=== PATIENT | female | born 1950 | race American Indian/Alaskan Native ===

== ENCOUNTER 2019-01-08 12:00 | Observation (INO) | payer MEDICARE, OTHER ==
[2019-01-07 13:43] LABS: Basophils % (Auto) 0.4 % (0.0-1.8); Eosinophils # (Auto) 0.1 K/mm3 (0.0-0.4); Eosinophils % (Auto) 2.2 % (0.0-4.3); Hematocrit 24.7 % (30.3-42.9); Hemoglobin 8.5 gm/dl (10.1-14.3); Lymphocytes # (Auto) 1.2 K/mm3 (1.2-5.4); Lymphocytes % (Auto) 19.3 % (13.4-35.0); Mean Corpuscular HGB Conc 34 % (30-34); Mean Corpuscular Volume 93 fl (79-97); Monocytes # (Auto) 0.4 K/mm3 (0.0-0.8); Monocytes % (Auto) 6.1 % (0.0-7.3); Platelet Count 370 K/mm3 (140-440); Red Blood Count 2.67 M/mm3 (3.65-5.03); Red Cell Distribution Width 17.1 % (13.2-15.2)
[2019-01-07 14:02] LABS: Calcium 10.9 mg/dL (8.4-10.2)
--- NOTE | 2019-01-07 15:27 | Anesthesia Consultation ---
Anesthesia Consult and Med Hx Date of service: 01/07/19 - Airway Anesthetic Teeth Evaluation: Good ROM Head & Neck: Adequate Mental/Hyoid Distance: Adequate Mallampati Class: Class III Intubation Access Assessment: Possibly Difficult - Pulmonary Exam CTA: Yes - Cardiac Exam Cardiac Exam: RRR (grade 2 systolic murmur) - Pre-Operative Health Status ASA Pre-Surgery Classification: ASA3 Proposed Anesthetic Plan: General Nerve Block: TAP - Pulmonary Hx Smoking: Yes Hx Respiratory Symptoms: No - Cardiovascular System Hx Hypertension: Yes (instructed to take amlodipine and clonidine DOS) Hx Heart Attack/AMI: No Hx Percutaneous Transluminal Coronary Angioplasty (PTCA): No Hx Cardia Arrhythmia: No Hx Heart Murmur: Yes (present since childhood; asymptomatic) - Central Nervous System Hx Seizures: No CVA: No Hx Psychiatric Problems: No - Gastrointestinal Hx Gastroesophageal Reflux Disease: Yes (well controlled with ranitidine prn) - Endocrine Hx Renal Disease: Yes (CKD; followed by distillery worker) Hx Liver Disease: No Hx Insulin Dependent Diabetes: No Hx Non-Insulin Dependent Diabetes: No Hx Thyroid Disease: No - Hematic Hx Anemia: Yes (no hx transfusions) - Other Systems Hx Alcohol Use: Yes (Occas) Hx Obesity: Yes (BMI 44) - Additional Comments Anesthesia Medical History Comments: No hx anesthetic complications. BP elevated on arrival to pre-assessment but patient did not take antihypertensives this morning. No SOB or chest pain. Instructed to take amlodipine and clonidine DOS.
--- NOTE | 2019-01-08 10:49 | History and Physical Report ---
History of Present Illness Date of examination: 01/08/19 Chief complaint: Postmenopausal bleeding History of present illness: Pt is a 68yo BF LMP 8 years ago presents with complaints of postmenopausal bleeding, unresolved with the D&C and polypectomy. A pelvic ultrasound shows an enlarged uterus measuring 14 x 12 x 10 cm with several fibroids. She desires a robotic-assisted total hysterectomy with bilateral salpingo-oophorectomy. Past History Past Medical History: hypertension Past Surgical History: colorectal surgery, SWIMMING TEACHER/uterine surgery, D&C SWIMMING TEACHER History: fibroids Family/Genetic History: none Social history: no significant social history, Medications and Allergies Allergies Allergy/AdvReac Type Severity Reaction Status Date / Time ampicillin Allergy Vomiting Verified 01/01/19 17:58 lisinopril Allergy Swelling Verified 01/01/19 17:58 Home Medications Medication Instructions Recorded Confirmed Last Taken Type AtorvaSTATin [Lipitor] 40 mg PO QHS 01/01/19 01/08/19 01/06/19 History Ranitidine HCl [Heartburn Relief] 75 mg PO DAILY 01/01/19 01/01/19 01/08/19 09:30 History amLODIPine [Norvasc] 10 mg PO DAILY 01/01/19 01/01/19 01/08/19 09:30 History cloNIDine [Catapres] 0.2 mg PO BID 01/01/19 01/08/19 01/08/19 09:30 History Active Meds: Active Medications Celecoxib (Celebrex) 200 mg PO PREOP NR Stop: 01/08/19 23:59 Fentanyl (Sublimaze) 100 mcg IV ONCE PRN PRN Reason: sedation for nerve block Stop: 01/08/19 23:59 Gabapentin (Neurontin) 300 mg PO PREOP NR Stop: 01/08/19 23:59 Lactated Ringer's (Lactated Ringers) 1,000 mls @ 100 mls/hr IV DIRECT CHRISTIANE Midazolam HCl (Versed) 2 mg IV PREOP NR Stop: 01/08/19 23:59 Scopolamine (Transderm-Scop) 1 each TD PREOP NR Stop: 01/08/19 23:59 Review of Systems All systems: negative - Vital Signs Vital signs: Vital Signs Temp Pulse Resp BP Pulse Ox 98.8 F 95 H 20 196/88 98 01/07/19 13:15 01/07/19 13:15 01/07/19 13:15 01/07/19 13:15 01/07/19 13:15 Temp Pulse Resp BP Pulse Ox 98.8 F 95 H 20 196/88 98 01/07/19 13:15 01/07/19 13:15 01/07/19 13:15 01/07/19 13:15 01/07/19 13:15 - Physical Exam Breasts: Positive: deferred Cardiovascular: Regular rate Lungs: Positive: Clear to auscultation Abdomen: Positive: normal appearance, soft Genitourinary (Female): Positive: normal external genitalia Vagina: Positive: normal moisture Uterus: Positive: enlarged Anus/Rectum: Positive: normal perianal skin Extremities: Positive: normal Results Result Diagrams: 01/09/19 05:55 01/07/19 13:20 Abnormal lab results 01/07/19 01/07/19 Range/Units 13:20 13:20 RBC 2.67 L (3.65-5.03) M/mm3 Hgb 8.5 L (10.1-14.3) gm/dl Hct 24.7 L (30.3-42.9) % RDW 17.1 H (13.2-15.2) % Seg Neutrophils % 72.0 H (40.0-70.0) % Carbon Dioxide 18 L (22-30) mmol/L BUN 30 H (7-17) mg/dL Creatinine 4.2 H (0.7-1.2) mg/dL Calcium 10.9 H (8.4-10.2) mg/dL All other labs normal. Ultrasound: report reviewed Assessment and Plan - Patient Problems (1) Uterine fibroid Onset Date: 01/08/19 Current Visit: No Status: Resolved Qualifiers: Uterine leiomyoma location: intramural, submucous, and subserous Qualified Code(s): D25.1 - Intramural leiomyoma of uterus; D25.0 - Submucous leiomyoma of uterus; D25.2 - Subserosal leiomyoma of uterus Plan to address problem: A: Symptomatic uterine fibroids Postmenopausal bleeding Anemia Kidney disease P: Will admit for a robotic-assisted total hysterectomy with bilateral sa lpingo-oophorectomy (2) Post-menopausal bleeding Onset Date: 01/08/19 Current Visit: No Status: Resolved
--- NOTE | 2019-01-08 11:49 | Anesthesia Day of Surgery ---
Anesthesia Day of Surgery - Day of Surgery Patient Examined: Yes Patient H&P Reviewed: Yes Patient is NPO: Yes
[~2019-01-08 12:00] MED LIST: ANCEF/STERILE WATER 2 GM/20 ML 2 GM/20 ML SYRINGE IV NR; DECADRON ONE; LACTATED RINGERS 1,000 ML IV SCH; MARCAINE 0.25% INFILTRATI ONE; NEURONTIN PO NR; SUBLIMAZE IV PRN; TRANSDERM-SCOP TD NR; VERSED IV NR; XYLOCAINE 1% 20 mL ONE
[2019-01-08] MEDS ORDERED: ZEMURON IV ONE (12:01)
[2019-01-08] MEDS ORDERED: DIPRIVAN 10 MG/ML IV ONE (12:01)
[2019-01-08] MEDS ORDERED: XYLOCAINE MPF 2% ONE (12:01)
[2019-01-08] MEDS ORDERED: SUBLIMAZE ONE (12:02)
[2019-01-08] MEDS ORDERED: NEOSPORIN GU IR ONE ×2 (12:14→13:13)
[2019-01-08] MEDS ORDERED: NACL 0.9% IR ONE ×2 (13:13)
[2019-01-08] MEDS ORDERED: ROBINUL ONE (15:09)
[2019-01-08] MEDS ORDERED: BLOXIVERZ ONE (15:09)
[2019-01-08] MEDS ORDERED: SODIUM CHLORIDE FLUSH SYRINGE 10 ML IV PRN (15:11)
[2019-01-08] MEDS ORDERED: NARCAN 0.4 MG/1 ML IV PRN (15:11)
[2019-01-08] MEDS ORDERED: PERCOCET 5/325 PO PRN (15:11)
[2019-01-08] MEDS ORDERED: MILK OF MAGNESIA PO PRN (15:11)
[2019-01-08] MEDS ORDERED: ZOFRAN IV PRN (15:11)
--- NOTE | 2019-01-08 15:36 | Operative Report ---
Operative Report Operative Report: Date of procedure: 01/08/2019 Pre-operative diagnosis: 1. Symptomatic uterine fibroids 2. Postmenopausal bleeding Post-operative diagnosis: Same Procedure name(s): Robotic-assisted total hysterectomy with bilateral salpingo- oophorectomy Surgeon: Marcos Edwards MD General Office Worker: Samra Chamberlain CSA Anesthesia: GEE Block followed by general endotracheal intubation by Dr. Moore EBL: 100 mls Findings: A 16 week size multi-myomatous uterus with tubes showing evidence of previous tubal ligation bilaterally and normal ovaries bilaterally. Procedure: After the patient's first correctly identified she was prepped and draped in the usual sterile fashion and placed in the dorsolithotomy position. The bladder was first catheterized using Stone catheter and the speculum was placed in the vagina and the anterior lip of the cervix was grasped using a single-tooth tenaculum, and the medium Vesicare cup was placed. The tenaculum and speculum was then removed from the vagina and attention was then turned to the abdomen. The skin knife was used to make a small incision approximately 5 cm above the umbilicus through which a 12 mm trocar was placed under direct visualization. After adequate amount of abdominal insufflation visualization of the pelvic organs found the uterus to be enlarged and the tubes showed evidence of previous tubal ligation bilaterally, and normal ovaries bilaterally. A right and left paramedian incision was made through which the 8 mm trochars were placed under direct visualization and a 5 mm trocar was placed in the right lower quadrant. The patient was then placed in steep Trendelenburg positioning and the robot was docked on the patient's left side. After all the robotic ports were connected and adequate functioning of the robotic arms were tested the surgeon then proceeded to the console to begin the hysterectomy. First the left round ligament was grasped, cauterized and cut, the left infundibulopelvic ligament was grasped, cauterized and cut, and the left fallopian tube also grasped, cauterized and cut thus freeing the left ovary from the left pelvic sidewall. The same procedure was performed on the right. The right round ligament was grasped, cauterized and cut, the right infundibulopelvic ligament was grasped, cauterized and cut, and the right f allopian tube also grasped, cauterized and cut thus freeing the right ovary from the right pelvic sidewall. The bladder flap was taken down anteriorly and the uterine vessels were grasped, cauterized and cut bilaterally. The cardinal ligaments were sequentially grasped, cauterized and cut down to the level of the uterosacral ligaments. At this time the posterior colpotomy was performed over the Vcare cup, and the cervix was circumscribed beginning posteriorly and meeting anteriorly until the cervix was freed. The cervix and uterus was then removed in pieces through the vagina and sent to pathology. The vaginal cuff was then closed using 2-0 Vloc suture in a running fashion. Irrigation was then performed and after good hemostasis was achieved the procedure was considered complete. The Tisseel sealant was then sprayed across the vaginal cuff site, and after excellent hemostasis was assured Interceed was placed across the vaginal cuff site. All instruments were then removed from the abdominal cavity. And each incision was closed using 0 Vicryl suture in a [id number] configuration on the fascia followed by 4-0 Monocryl suture in a sub-cuticular fashion on the skin. Each incision was also infiltrated using 0.5% Marcaine solution. The vaginal pack was removed, and a small vaginal laceration was repaired using 0 Vicryl suture in a running interlocking fashion. The patient tolerated the procedure well and was transported to the recovery room in stable condition.
[2019-01-08] MEDS ORDERED: NACL 0.9% 1000 ML 1,000 ML ONE (15:41)
[2019-01-08] MEDS: DILAUDID IV PRN ×2 (15:44→21:52)
[2019-01-08] MEDS: D5LR 1,000 ML IV SCH (17:33)
--- NOTE | 2019-01-08 17:34 | Post Anesthesia Evaluation ---
- Post Anesthesia Evaluation Patient Participated: Yes Airway Patent: Yes Stable Respiratory Function: Yes Nausea/Vomiting: No Temp > 96.8F: Yes Pain Manageable: Yes Adequeate Hydration: Yes Anesthesia Complications: No
[2019-01-08] MEDS: TORADOL IV SCH ×2 (17:37→23:39)
[2019-01-08] MEDS: CLEOCIN 900 MG/50 mL 900 MG/50 ML BAG IV SCH (21:36)
[2019-01-08] MEDS: COLACE PO SCH (21:36)
[2019-01-08] MEDS: CATAPRES PO SCH (23:44)
[2019-01-09] MEDS: D5LR 1,000 ML IV SCH ×2 (00:30→07:00)
[2019-01-09] MEDS: CLEOCIN 900 MG/50 mL 900 MG/50 ML BAG IV SCH (04:57)
[2019-01-09] MEDS: TORADOL IV SCH (04:58)
[2019-01-09 06:16] LABS: Hemoglobin 6.5 gm/dl (10.1-14.3)
[2019-01-09 06:19] LABS: Hematocrit 19.5 % (30.3-42.9)
[2019-01-09] MEDS: NORCO 5/325 PO PRN ×2 (08:33→18:00)
--- NOTE | 2019-01-09 08:37 | Progress Note ---
Assessment and Plan - Patient Problems (1) Uterine fibroid Onset Date: 01/08/19 Current Visit: No Status: Resolved Qualifiers: Uterine leiomyoma location: intramural, submucous, and subserous Qualified Code(s): D25.1 - Intramural leiomyoma of uterus; D25.0 - Submucous leiomyoma of uterus; D25.2 - Subserosal leiomyoma of uterus (2) Post-menopausal bleeding Onset Date: 01/08/19 Current Visit: No Status: Resolved (3) Status post robot-assisted surgical procedure Onset Date: 01/09/19 Current Visit: Yes Status: Resolved Plan to address problem: A: S/P RATH with BSO - POD #1 Doing well Asymptomatic anemia - stable P: May go home today. Subjective - Subjective Date of service: 01/09/19 Principal diagnosis: s/p RATH - POD #1 Interval history: Pt is feeling well without complaints. She is tolerating a reg diet without nausea or vomiting, ambulating and voiding without difficulty. She denies dizziness, SOB or SOLANO. Patient reports: appetite normal, voiding normally, pain well controlled, flatus, ambulating normally, no dizzy ambulation, no nauseated Objective - Vital Signs Latest vital signs: Vital Signs Temp Pulse Resp BP BP Pulse Ox 01/09/19 05:28 98.1 F 69 18 135/60 98 01/09/19 01:08 97.6 F 67 18 137/63 95 01/08/19 23:44 154/66 01/08/19 21:34 97.4 F L 74 18 154/66 99 01/08/19 18:01 98 01/08/19 17:37 20 01/08/19 17:10 97.5 F L 72 20 153/72 98 01/08/19 16:30 97.5 F L 72 18 144/71 96 01/08/19 16:15 79 18 154/78 96 01/08/19 16:14 18 01/08/19 16:00 76 15 164/73 97 01/08/19 15:45 81 20 155/73 97 01/08/19 15:44 18 01/08/19 15:40 85 20 150/72 97 01/08/19 15:35 86 20 136/115 97 01/08/19 15:30 97.3 F L 76 16 135/85 100 01/08/19 13:12 98.2 F 88 22 149/78 99 01/08/19 11:44 76 11 L 164/77 100 01/08/19 11:39 80 11 L 166/86 99 01/08/19 11:34 78 12 144/71 99 01/08/19 11:28 78 15 150/78 100 01/08/19 10:25 98.2 F 88 22 149/78 99 Intake and Output 01/08/19 01/09/19 01/09/19 22:59 06:59 14:59 Intake Total 630 1577.5 Output Total 200 800 Balance 430 777.5 Intake: IV 630 1337.5 CLEOCIN 900 MG/50 mL 900 50 mg In 50 ml @ 100 mls/hr IV Q8HR CHRISTIANE Rx#:[id number] D5lr 1,000 ml @ 125 mls/ 1337.5 hr IV DIRECT CHRISTIANE Rx#: [id number] Oral 240 Output: Urine 200 800 Indwelling Catheter 800 Uretheral (Stone) 50 Other: Total, Intake Amount 240 Total, Output Amount 500 Voiding Method Indwelling Catheter Weight 123.377 kg - Exam Cardiovascular: Present: Regular rate Lungs: Present: Clear to auscultation Abdomen: Present: normal appearance, soft Extremities: Present: normal Incision: Present: normal, dry, intact - Labs Labs: Abnormal lab results 01/09/19 Range/Units 05:55 Hgb 6.5 L (10.1-14.3) gm/dl Hct 19.5 L* (30.3-42.9) % Laboratory Tests 01/07/19 01/07/19 01/08/19 13:20 13:20 11:05 WBC 6.0 RBC 2.67 L Hgb 8.5 L Hct 24.7 L MCV 93 MCH 32 MCHC 34 RDW 17.1 H Plt Count 370 Lymph % (Auto) 19.3 Gosper % (Auto) 6.1 Eos % (Auto) 2.2 Baso % (Auto) 0.4 Lymph # 1.2 Gosper # 0.4 Eos # 0.1 Baso # 0.0 Seg Neutrophils % 72.0 H Seg Neutrophils # 4.3 Sodium 140 Potassium 4.0 Chloride 105.1 Carbon Dioxide 18 L Anion Gap 21 BUN 30 H Creatinine 4.2 H Estimated GFR 13 BUN/Creatinine Ratio 7 Glucose 95 Calcium 10.9 H Blood Type O POSITIVE Antibody Screen Negative 01/09/19 05:55 WBC RBC Hgb 6.5 L Hct 19.5 L* MCV MCH MCHC RDW Plt Count Lymph % (Auto) Gosper % (Auto) Eos % (Auto) Baso % (Auto) Lymph # Gosper # Eos # Baso # Seg Neutrophils % Seg Neutrophils # Sodium Potassium Chloride Carbon Dioxide Anion Gap BUN Creatinine Estimated GFR BUN/Creatinine Ratio Glucose Calcium Blood Type Antibody Screen
--- NOTE | 2019-01-09 09:11 | Discharge Summary ---
Providers - Providers Date of Admission: 01/08/19 15:11 Date of discharge: 01/09/19 Attending physician: SHARAN MENDENHALL Primary care physician: GHASSAN CHAVARRIA Hospitalization Reason for admission: other (Symptomatic uterine fibroids; Postmenopausal bleeding) Procedure: other (Robotic Assisted Total Hysterectomy with Bilateral SalpingoOophoreectomy) Episiotomy: none Laceration: none Incision: normal, dry, intact Other procedures: none complications: none Discharge diagnosis: other (s/p RATH with BSO) Hospital course: Pt is a 68yo BF LMP 8 years ago who presented with complaints of postmenopausal bleeding, unresolved with the D&C and polypectomy. A pelvic ultrasound showed an enlarged uterus measuring 14 x 12 x 10 cm with several fibroids. She underwent an uncomplicated robotic-assisted total hysterectomy with bilateral salpingo-oophorectomy, and by POD #1 she was tolerating a reg diet without nausea or vomiting, ambulating and voiding without difficulty. She was therefore discharged to home on POD #1 in stable condition. Condition at discharge: Good Disposition: DC-01 TO HOME OR SELFCARE - Discharge Diagnoses (1) Uterine fibroid Status: Resolved Qualifiers: Uterine leiomyoma location: intramural, submucous, and subserous Qualified Code(s): D25.1 - Intramural leiomyoma of uterus; D25.0 - Submucous leiomyoma of uterus; D25.2 - Subserosal leiomyoma of uterus (2) Post-menopausal bleeding Status: Resolved (3) Status post robot-assisted surgical procedure Status: Resolved Plan - Discharge Medications Prescriptions: Ibuprofen [Motrin] 800 mg PO Q8HR PRN #30 tablet PRN Reason: Pain, Mild (1-3) HYDROcodone/APAP 5-325 [Morrison 5-325 mg TAB] 1 each PO Q6HR PRN #30 tablet PRN Reason: Pain, Moderate (4-6) - Provider Discharge Summary Activity: routine, no sex for 6 weeks, no heavy lifting 4 weeks, no strenuous exercise Diet: routine Instructions: routine Additional instructions: [] Smoking cessation referral if applicable(refer to patient education folder for contact #) [] Refer to [employer] Booklet Call your doctor immediately for: * Fever > 100.5 * Heavy vaginal bleeding ( >1 pad per hour) * Severe persistent headache * Shortness of breath * Reddened, hot, painful area to leg or breast * Drainage or odor from incision. * Keep incision clean and dry at all times and follow doctor's instructions regarding bathing/showering - Follow up plan Follow up: GHASSAN CHAVARRIA MD [Primary Care Provider] - 14 Days SHARAN MENDENHALL MD [Staff Physician] - 14 Days
[2019-01-09] MEDS ORDERED: NORVASC PO SCH (10:00)
[2019-01-09] MEDS: CATAPRES PO SCH (11:00)
[2019-01-09] MEDS: COLACE PO SCH (11:04)
[2019-01-09 21:00] VITALS: BP 130/61
== END 2019-01-09 21:04 | disposition home or self-care (01) ==
LOC: OR 12:00 → OB 15:11
PROVIDERS: ADMIT Obstetrics & Gynecology; ATTEND Obstetrics & Gynecology
DX: D25.9 Leiomyoma of uterus, unspecified (principal); N95.0 Postmenopausal bleeding; I10 Essential (primary) hypertension; Z79.899 Other long term (current) drug therapy; Z98.890 Other specified postprocedural states
CPT/HCPCS: 36415; 58554; 64450; 80048; 85014; 85018; 85025; 86850; 86900; 86901; 88307; 96365; 96366; 96375; 96376; A4217; C1765; C9250; G0378; J0690; J1100; J1170; J1885; J2250; J2405; J2704; J2710; J3010; J7030; J7120; J7121; S2900

== ENCOUNTER 2019-03-29 08:06 | Day surgery (SDC) | payer MEDICARE ==
[~2019-03-29 08:06] MED LIST changes: -ANCEF/STERILE WATER 2 GM/20 ML 2 GM/20 ML SYRINGE IV NR; -DECADRON ONE; -LACTATED RINGERS 1,000 ML IV SCH; -MARCAINE 0.25% INFILTRATI ONE; +MIDAZOLAM 2 MG/2 ML INJ IV NR; -NEURONTIN PO NR; +SODIUM CHLORIDE 0.9% 1000 ML 1,000 ML IV SCH; -SUBLIMAZE IV PRN; -TRANSDERM-SCOP TD NR; -VERSED IV NR; -XYLOCAINE 1% 20 mL ONE; +ceFAZolin/Water 2 GM/20 ML 2 GM/20 ML SYRINGE IV NR
[2019-03-29] MEDS ORDERED: PROPOFOL 200 MG/20 ML VIAL IV ONE (09:15)
[2019-03-29] MEDS ORDERED: LIDOCAINE MPF (2%) 20 MG/1 ML VIAL 5 ML ONE (09:15)
[2019-03-29] MEDS ORDERED: SODIUM CHLORIDE 0.9% 250ML 250 ML ONE (09:30)
[2019-03-29] MEDS ORDERED: GELATIN SPONGE SIZE 100 TP ONE ×2 (09:30→10:43)
[2019-03-29] MEDS ORDERED: HEPARIN 10,000 UNITS/10 ML VIAL ONE (09:30)
[2019-03-29] MEDS ORDERED: PROTAMINE SULFATE 50 MG/5 ML INJ ONE (09:31)
[2019-03-29] MEDS ORDERED: THROMBIN (RECOMBINANT) 5,000 UNIT VIAL TP ONE ×2 (09:31→10:44)
[2019-03-29 09:40] LABS: Calcium 10.7 mg/dL (8.4-10.2)
[2019-03-29 09:42] LABS: Basophils # (Auto) 0.1 K/mm3 (0.0-0.1); Eosinophils # (Auto) 0.1 K/mm3 (0.0-0.4); Eosinophils % (Auto) 1.8 % (0.0-4.3); Hematocrit 30.6 % (30.3-42.9); Lymphocytes # (Auto) 0.9 K/mm3 (1.2-5.4); Lymphocytes % (Auto) 17.7 % (13.4-35.0); Mean Corpuscular HGB Conc 33 % (30-34); Mean Corpuscular Volume 91 fl (79-97); Monocytes # (Auto) 0.3 K/mm3 (0.0-0.8); Monocytes % (Auto) 5.8 % (0.0-7.3); Platelet Count 308 K/mm3 (140-440); Red Blood Count 3.38 M/mm3 (3.65-5.03); Red Cell Distribution Width 19.8 % (13.2-15.2)
[2019-03-29] MEDS ORDERED: fentaNYL 100 MCG/2 ML INJ ONE ×3 (10:30→12:31)
[2019-03-29] MEDS ORDERED: HEPARIN 10,000 UNITS/10 ML VIAL IR ONE (10:42)
[2019-03-29] MEDS ORDERED: SODIUM CHLORIDE 0.9% IRR 1,500 ML BOTTLE IR ONE (10:43)
[2019-03-29] MEDS ORDERED: SODIUM CHLORIDE 0.9% 250 ML IVPB IR ONE (10:43)
[2019-03-29] MEDS ORDERED: ePHEDrine SULFATE 50 MG/1 ML INJ ONE (10:46)
[2019-03-29] MEDS ORDERED: ONDANSETRON 4 MG/2 ML INJ ONE (10:52)
[2019-03-29] MEDS ORDERED: dexAMETHasone 20 MG/5 ML VIAL ONE (10:52)
--- NOTE | 2019-03-29 12:13 | Post Operative Note ---
Pre-op diagnosis: Stage IV Chronic Kidney Disease Post-op diagnosis: same Procedure: Right Arm Brachiocephalic AV Fistula Creation Anesthesia: GETA Estimated blood loss: other (25ml) Pathology: none Condition: stable Disposition: PACU
--- NOTE | 2019-03-29 12:18 | Short Stay Summary ---
Short Stay Documentation Date of service: 03/29/19 - History H&P: obtained from office - Allergies and Medications Current Medications: Allergies ampicillin Allergy (Verified 03/27/19 13:04) Vomiting stomach cramps lisinopril Allergy (Verified 03/27/19 13:04) Swelling Home Medications Medication Instructions Recorded Confirmed Last Taken Type AtorvaSTATin [Lipitor] 40 mg PO QHS 01/01/19 03/27/19 01/06/19 History Ranitidine HCl [Heartburn Relief] 75 mg PO DAILY 01/01/19 03/29/19 03/26/19 10:00 History amLODIPine [Norvasc] 10 mg PO DAILY 01/01/19 03/27/19 03/29/19 07:00 History cloNIDine [Catapres] 0.2 mg PO BID 01/01/19 03/27/19 03/29/19 07:00 History Ibuprofen [Motrin] 800 mg PO Q8HR PRN #30 tablet 01/09/19 03/27/19 Unknown Rx Active Medications Cefazolin Sodium (Ancef/Sterile Water 2 Gm/20 Ml) 2 gm in 20 mls @ 80 mls/hr IV PREOP NR; Protocol Stop: 03/29/19 23:59 Sodium Chloride (Nacl 0.9% 1000 Ml) 1,000 mls @ 42 mls/hr IV DIRECT CHRISTIANE Last Admin: 03/29/19 08:45 Dose: 42 mls/hr Documented by: Midazolam HCl (Versed) 2 mg IV PREOP NR Stop: 03/29/19 23:00 Last Admin: 03/29/19 08:45 Dose: 2 mg Documented by: - Physical exam General appearance: no acute distress HEENT: EOMI Lungs: Normal air movement - Hospital course Hospital course: the patient was taken to the operating room and had a right arm av fistula creation performed. please refer to the operative note concerning details of the procedure. the patient tolerated the procedure well and was discharged home in stable condition. - Disposition Condition at discharge: Stable Disposition: - TO HOME OR SELFCARE - Discharge Diagnoses (1) CKD (chronic kidney disease) Status: Acute Qualifiers: Chronic kidney disease stage: stage 4 (severe) Qualified Code(s): N18.4 - Chronic kidney disease, stage 4 (severe) Short Stay Discharge Plan Follow up with: GHASSAN CHAVARRIA MD [Primary Care Provider] - 7 Days
[2019-03-29] MEDS ORDERED: ONDANSETRON 4 MG/2 ML INJ IV PRN (12:28)
[2019-03-29] MEDS: fentaNYL 100 MCG/2 ML INJ IV PRN ×4 (12:32→13:45)
[2019-03-29] MEDS ORDERED: oxyCODONE 5 MG TAB PO PRN (12:51)
[2019-03-29] MEDS ORDERED: oxyCODONE /ACETAMINOPHEN 5-325MG TAB PO PRN (12:57)
--- NOTE | 2019-03-29 13:34 | Operative Report ---
STAFF SURGEON: Nicholas Stinson MD PREOPERATIVE DIAGNOSIS: Stage IV chronic kidney disease. POSTOPERATIVE DIAGNOSIS: Stage IV chronic kidney disease. PROCEDURE PERFORMED: Right arm brachiocephalic AV fistula creation. COMPLICATIONS: None. ESTIMATED BLOOD LOSS: 25 mL. ANESTHESIA: General. INDICATIONS FOR PROCEDURE: This is a 68-year-old female with chronic kidney disease, whose renal function continued to deteriorate and therefore was referred for vascular evaluation for access creation. The patient had a preoperative vein mapping and was noted to have adequate upper arm cephalic vein and therefore was scheduled to undergo brachiocephalic AV fistula creation. The patient was explained the risks and benefits of the procedure, expressed understanding and wished to proceed. DESCRIPTION OF PROCEDURE: After appropriate consent was obtained, the patient was brought back to the operating room and placed on operative table in supine position with the right arm extended. The patient was given appropriate medication for general anesthesia and had an LMA placed. The right arm was prepped and draped in the usual sterile fashion with ChloraPrep. Appropriate preoperative antibiotics were administered. Appropriate timeout was performed indicating the correct patient, procedure, and site of the procedure. We then began the intervention by making a transverse incision on the medial forearm, just below the antecubital fossa. This was carried through subcutaneous tissue with a combination of blunt dissection and electrocautery. The cephalic vein was identified and mobilized in the entirety of the wound and found to be suitable for venous outflow. We then continued our dissection medially through the bicipital aponeurosis. The patient was noted on inspection to have high takeoff of the radial continued posteriorly and then the brachial artery was identified and found to be suitable for arterial inflow. This was mobilized for appropriate distance both proximally and distally. The patient was given 5000 units of unfractionated heparin. After appropriate timeout had elapsed, the cephalic vein was clamped and the distal aspect of the wound transected, irrigated with heparinized saline. The anterior surface was marked. The stump was ligated with a 3-0 silk suture. There was a branch that was noted, that was also ligated with 3-0 silk suture and transected. I then proceeded to flush the vein with heparinized saline. Vascular clamps were then placed on the brachial artery, both proximally and distally. Longitudinal arteriotomy was made with an 11 blade and extended with Simmons scissors. I then proceeded to perform the end-to-side anastomosis with a running 6-0 Prolene suture. Once complete flow was reestablished through the vein, which there was pulsatile flow noted through the cephalic vein, the vein was mobilized further in the proximal portion of the wound, had a better signal noted by Doppler with that and then proceeded to obtain further hemostasis along our suture line, which was obtained with hemostatic agents. Once we were satisfied with hemostasis, we then proceeded to close the wound with a running 3-0 PDS for the subcutaneous layer and the skin was approximated with 4-0 Monocryl and Dermabond dressing. The patient tolerated procedure well, emerged from the general anesthesia, had LMA removed and was sent to recovery room in stable condition. All sponge, instrument and needle counts were correct at completion of the operation. JOB# [id number] JAZMIN/SAAD
[2019-03-29 15:23] VITALS: BP 147/65
== END 2019-03-29 08:07 | disposition home or self-care (01) ==
LOC: OR 08:06
PROVIDERS: ATTEND Surgery Vascular Surgery
DX: I12.0 Hypertensive chronic kidney disease with stage 5 chronic kidney disease or end stage renal disease (principal); N18.6 End stage renal disease; E78.00 Pure hypercholesterolemia, unspecified; K21.9 Gastro-esophageal reflux disease without esophagitis; E66.9 Obesity, unspecified; F17.210 Nicotine dependence, cigarettes, uncomplicated; Z68.41 Body mass index [BMI] 40.0-44.9, adult; Z90.710 Acquired absence of both cervix and uterus; Z99.2 Dependence on renal dialysis; Z72.89 Other problems related to lifestyle; Z98.890 Other specified postprocedural states; Z88.8 Allergy status to other drugs, medicaments and biological substances; Z79.899 Other long term (current) drug therapy; Z86.2 Personal history of diseases of the blood and blood-forming organs and certain disorders involving the immune mechanism
CPT/HCPCS: 36415; 36821; 80048; 85025; A4649; J0690; J1100; J1644; J2250; J2405; J2704; J3010; J7030; J7050; J2720

== ENCOUNTER 2019-08-30 06:11 | Day surgery (SDC) | payer MEDICARE ==
[~2019-08-30 06:11] MED LIST changes: -MIDAZOLAM 2 MG/2 ML INJ IV NR; -SODIUM CHLORIDE 0.9% 1000 ML 1,000 ML IV SCH
[2019-08-30] MEDS ORDERED: BACTERIOSTATIC SODIUM CHLORIDE 0.9% 30 ML VIAL INFILTRATI ONE (06:19)
[2019-08-30 07:02] LABS: Basophils % (Auto) 0.8 % (0.0-1.8); Eosinophils # (Auto) 0.1 K/mm3 (0.0-0.4); Eosinophils % (Auto) 1.8 % (0.0-4.3); Hematocrit 31.2 % (30.3-42.9); Hemoglobin 10.3 gm/dl (10.1-14.3); Lymphocytes # (Auto) 0.9 K/mm3 (1.2-5.4); Lymphocytes % (Auto) 17.3 % (13.4-35.0); Mean Corpuscular HGB Conc 33 % (30-34); Mean Corpuscular Volume 91 fl (79-97); Monocytes # (Auto) 0.3 K/mm3 (0.0-0.8); Monocytes % (Auto) 6.3 % (0.0-7.3); Platelet Count 333 K/mm3 (140-440); Red Blood Count 3.45 M/mm3 (3.65-5.03); Red Cell Distribution Width 16.1 % (13.2-15.2)
[2019-08-30 07:13] LABS: Calcium 10.4 mg/dL (8.4-10.2)
[2019-08-30] MEDS ORDERED: PROTAMINE SULFATE 50 MG/5 ML INJ ONE (07:23)
[2019-08-30] MEDS ORDERED: HEPARIN 10,000 UNITS/10 ML VIAL ONE (07:23)
[2019-08-30] MEDS ORDERED: THROMBIN (RECOMBINANT) 5,000 UNIT VIAL TP ONE ×4 (07:24→09:49)
[2019-08-30] MEDS ORDERED: GELATIN SPONGE SIZE 100 TP ONE (07:24)
[2019-08-30] MEDS ORDERED: SODIUM CHLORIDE 0.9% 250ML 250 ML ONE (07:24)
--- NOTE | 2019-08-30 07:28 | Anesthesia Consultation ---
Anesthesia Consult and Med Hx Date of service: 08/30/19 - Airway Anesthetic Teeth Evaluation: Good ROM Head & Neck: Adequate Mental/Hyoid Distance: Adequate Mallampati Class: Class III Intubation Access Assessment: Possibly Difficult - Pre-Operative Health Status ASA Pre-Surgery Classification: ASA3 Proposed Anesthetic Plan: General - Pulmonary Hx Smoking: Yes Hx Respiratory Symptoms: No - Cardiovascular System Hx Hypertension: Yes Hx Cardia Arrhythmia: No Hx Heart Murmur: Yes (present since childhood; asymptomatic) - Central Nervous System Hx Psychiatric Problems: No - Gastrointestinal Hx Gastroesophageal Reflux Disease: Yes (well controlled with ranitidine prn) - Endocrine Hx Renal Disease: Yes Hx End Stage Renal Disease: Yes (Has not started dialysis yet) Hx Insulin Dependent Diabetes: No Hx Non-Insulin Dependent Diabetes: No Hx Thyroid Disease: No - Hematic Hx Anemia: Yes - Other Systems Hx Alcohol Use: Yes (Occas) Hx Cancer: No Hx Obesity: Yes (BMI 44)
--- NOTE | 2019-08-30 07:29 | Anesthesia Day of Surgery ---
Anesthesia Day of Surgery - Day of Surgery Patient Examined: Yes Patient H&P Reviewed: Yes Patient is NPO: Yes
[2019-08-30] MEDS ORDERED: SODIUM CHLORIDE 0.9% 1000 ML 1,000 ML IV SCH (07:30)
[2019-08-30] MEDS ORDERED: propofoL 200 MG/20 ML VIAL IV ONE (07:53)
[2019-08-30] MEDS ORDERED: HYDROmorphone 1 MG/1 ML INJ ONE (07:53)
[2019-08-30] MEDS ORDERED: LIDOCAINE MPF (2%) 20 MG/1 ML VIAL 5 ML ONE (07:54)
[2019-08-30] MEDS ORDERED: MIDAZOLAM 2 MG/2 ML INJ IV NR (08:00)
[2019-08-30] MEDS ORDERED: HEPARIN 10,000 UNITS/10 ML VIAL IV ONE (08:45)
[2019-08-30] MEDS ORDERED: SODIUM CHLORIDE 0.9% 250 ML IVPB IV ONE (08:45)
[2019-08-30] MEDS ORDERED: GELATIN SPONGE 12 X 7 TP ONE (09:16)
[2019-08-30] MEDS ORDERED: fentaNYL 100 MCG/2 ML INJ IV PRN (10:02)
[2019-08-30] MEDS ORDERED: ONDANSETRON 4 MG/2 ML INJ IV PRN (10:02)
[2019-08-30] MEDS ORDERED: ONDANSETRON 4 MG/2 ML INJ ONE (10:10)
--- NOTE | 2019-08-30 10:17 | Post Operative Note ---
Pre-op diagnosis: ESRD Post-op diagnosis: same Procedure: Right Arm AV Graft Insertion Anesthesia: GETA Surgeon: COSTA MOBLEY Estimated blood loss: other (25ml) Pathology: none Condition: stable Disposition: PACU
--- NOTE | 2019-08-30 10:24 | Short Stay Summary ---
Short Stay Documentation Date of service: 08/30/19 - History H&P: dictated Past Medical History: diabetes, ESRD - Allergies and Medications Current Medications: Allergies ampicillin Allergy (Verified 03/27/19 13:04) Vomiting stomach cramps lisinopril Allergy (Verified 03/27/19 13:04) Swelling Home Medications Medication Instructions Recorded Confirmed Last Taken Type Ranitidine HCl [Heartburn Relief] 75 mg PO DAILY 01/01/19 08/30/19 1 Week Ago History ~08/23/19 amLODIPine 10 mg PO DAILY 01/01/19 08/28/19 08/30/19 06:10 History cloNIDine [Catapres] 0.2 mg PO BID 01/01/19 08/28/19 08/30/19 06:10 History Aranesp 1 ampul Q4W 08/30/19 08/30/19 08/12/19 History Cinacalcet HCl 30 mg PO DAILY 08/30/19 08/30/19 08/28/19 History Active Medications Fentanyl (Sublimaze) 50 mcg IV Q5MIN PRN PRN Reason: Pain , Severe (7-10) Stop: 08/30/19 20:00 Hydromorphone HCl (Dilaudid) 0.5 mg IV Q10MIN PRN PRN Reason: Pain , Severe (7-10) Stop: 08/30/19 20:00 Cefazolin Sodium (Ancef/Sterile Water 2 Gm/20 Ml) 2 gm in 20 mls @ 80 mls/hr IV PREOP NR; Protocol Stop: 08/30/19 23:59 Sodium Chloride (Nacl 0.9% 1000 Ml) 1,000 mls @ 42 mls/hr IV DIRECT CHRISTIANE Midazolam HCl (Versed) 2 mg IV ONCE NR Stop: 08/30/19 15:00 Ondansetron HCl (Zofran) 4 mg IV ONCE PRN PRN Reason: Nausea And Vomiting Stop: 08/30/19 16:00 - Physical exam General appearance: no acute distress Lungs: Normal air movement Heart: Regular rate Extremities: no ischemia - Hospital course Hospital course: the patient was taken to the operating room and had a right arm av graft inserted. please refer to the operative note concerning the details of the procedure. the patient tolerated the procedure well and was discharged home in stable condition. - Disposition Condition at discharge: Stable Disposition: DC-01 TO HOME OR SELFCARE - Discharge Diagnoses (1) CKD (chronic kidney disease) Status: Acute Qualifiers: Chronic kidney disease stage: stage 4 (severe) Qualified Code(s): N18.4 - Chronic kidney disease, stage 4 (severe) Short Stay Discharge Plan Follow up with: GHASSAN CHAVARRIA MD [Primary Care Provider] - 7 Days
[2019-08-30] MEDS: HYDROmorphone 1 MG/1 ML INJ IV PRN ×2 (10:27→10:37)
[2019-08-30] MEDS ORDERED: oxyCODONE /ACETAMINOPHEN 5-325MG TAB PO PRN (10:30)
--- NOTE | 2019-08-30 10:52 | Operative Report ---
STAFF SURGEON: Nicholas Stinson MD PREOPERATIVE DIAGNOSIS: Stage 4 chronic kidney disease. POSTOPERATIVE DIAGNOSIS: Stage 4 chronic kidney disease. PROCEDURE PERFORMED: Right arm AV graft insertion. COMPLICATIONS: None. ESTIMATED BLOOD LOSS: 25 mL. ANESTHESIA: General. INDICATIONS FOR PROCEDURE: This is a 69-year-old female with chronic kidney disease whose renal function has continued to deteriorate and is in need of access for impending dialysis. The patient had a right brachiocephalic AV fistula that failed to properly mature. Now, the patient is being scheduled for right arm AV graft. The patient was explained the risks, benefits and alternatives of procedure, expressed understanding and wished to proceed. DESCRIPTION OF PROCEDURE: After appropriate consent was obtained, the patient was brought back to the operating room and placed on the operating table in supine position with the right arm extended. The patient was given appropriate medication for general anesthesia, had LMA placed without difficulty. The right arm was prepped and draped in the usual sterile fashion with ChloraPrep. Appropriate preoperative antibiotics were administered. Appropriate timeout was performed indicating correct patient, procedure, and site of procedure. We then began the operation by making a longitudinal incision near the antecubital fossa. This was carried through the subcutaneous tissue with a combination of blunt dissection and electrocautery. Dissection was continued through the bicipital aponeurosis, which allowed to expose the brachial artery, which was found to be small in size, but thought to be okay for arterial inflow. This was mobilized for appropriate distance both proximally and distally. We then proceeded to make a transverse incision near the axilla. This was carried through the subcutaneous tissue with a combination of blunt dissection and electrocautery. Dissection was continued through the fascia overlying the axillary neurovascular bundle. The axillary vein was identified and found to be suitable for venous outflow. This was mobilized for appropriate distance both proximally and distally. We then proceeded to create a subcutaneous tunnel between the 2 incision sites, bringing through a 4-7 mm Propaten graft. The patient was given 5000 units of unfractionated heparin. After appropriate timeout elapsed, vascular clamps were placed on the brachial artery, both proximally and distally. The graft was appropriately spatulated. A longitudinal arteriotomy was made with an 11 blade and extended with Simmons scissors. We then proceeded to perform the end-to-side anastomosis with a running 6-0 Prolene suture. Once complete, flow was established through the graft, we had a nice pulsatile flow. The graft was then cut to an appropriate length and spatulated. Vascular clamps were placed on the axillary vein, both proximally and distally. Longitudinal venotomy was made with a #11 blade and extended with Simmons scissors. An end-to-side anastomosis was performed with a running 5-0 Prolene suture. Once complete, we then looked to obtain hemostasis along the suture line, which was obtained with hemostatic agents. Once we were satisfied with hemostasis, we then proceeded to close the wounds with interrupted 3-0 PDS for the deep subcutaneous layer and then the skin was approximated with juno. The patient had a palpable thrill. Appropriate dressing was placed. The patient tolerated the procedure well, emerged from the general anesthesia, had the LMA removed and was sent to recovery in a stable condition. All the sponges, instrument and needle counts were correct at the completion of the operation. JOB# [id number] JAZMIN/SAAD
[2019-08-30] MEDS ORDERED: ACETAMINOPEN W/CODEINE 120-12MG ORAL LIQD 5 ML PO PRN (11:00)
[2019-08-30 11:03] VITALS: BP 158/91
== END 2019-08-30 12:05 | disposition home or self-care (01) ==
LOC: OR 06:11
PROVIDERS: ATTEND Surgery Vascular Surgery
DX: I12.0 Hypertensive chronic kidney disease with stage 5 chronic kidney disease or end stage renal disease (principal); N18.6 End stage renal disease; E78.00 Pure hypercholesterolemia, unspecified; K21.9 Gastro-esophageal reflux disease without esophagitis; E66.9 Obesity, unspecified; F17.210 Nicotine dependence, cigarettes, uncomplicated; Z68.41 Body mass index [BMI] 40.0-44.9, adult; Z90.710 Acquired absence of both cervix and uterus; Z88.8 Allergy status to other drugs, medicaments and biological substances; Z79.899 Other long term (current) drug therapy; Z88.6 Allergy status to analgesic agent; Z98.890 Other specified postprocedural states; Z72.89 Other problems related to lifestyle; Z86.2 Personal history of diseases of the blood and blood-forming organs and certain disorders involving the immune mechanism
CPT/HCPCS: 36415; 36830; 80048; 85025; A4649; C1768; J0690; J1170; J1644; J2250; J2405; J2704; J2720; J7030; J7050

== ENCOUNTER 2020-12-16 20:15 | Inpatient (IN) | payer MEDICARE ==
[2020-12-16 21:45] LABS: Basophils # (Auto) 0.1 K/mm3 (0.0-0.1); Eosinophils # (Auto) 0.1 K/mm3 (0.0-0.4); Eosinophils % (Auto) 1.3 % (0.0-4.3); Lymphocytes # (Auto) 0.4 K/mm3 (1.2-5.4); Lymphocytes % (Auto) 5.9 % (13.4-35.0); Monocytes # (Auto) 0.4 K/mm3 (0.0-0.8); Monocytes % (Auto) 5.5 % (0.0-7.3)
[2020-12-16 21:49] LABS: Hematocrit 24.7 % (30.3-42.9); Hemoglobin 7.9 gm/dl (10.1-14.3); Mean Corpuscular HGB Conc 32 % (30-34); Mean Corpuscular Volume 92 fl (79-97); Platelet Count 304 K/mm3 (140-440); Red Blood Count 2.69 M/mm3 (3.65-5.03); Red Cell Distribution Width 17.5 % (13.2-15.2)
[2020-12-16 21:58] LABS: INR 0.98 (0.87-1.13)
[2020-12-16 21:59] LABS: Partial Thromboplastin Time 32.3 Sec. (24.2-36.6)
[2020-12-16 22:14] LABS: Albumin 3.9 g/dL (3.9-5); Calcium 9.9 mg/dL (8.4-10.2)
[2020-12-16 22:38] LABS: Chol/HDL Ratio 4.77 %
--- NOTE | 2020-12-16 23:00 | XRay Report ---
CHEST 2 VIEWS INDICATION / CLINICAL INFORMATION: Shortness of breath. COMPARISON: None available. FINDINGS: SUPPORT DEVICES: None. HEART / MEDIASTINUM: Cardiomegaly LUNGS / PLEURA: Mild increased interstitial prominence and pulmonary vascularity with small left effu mohsen No pneumothorax. ADDITIONAL FINDINGS: No significant additional findings. IMPRESSION: Cardiomegaly with mild increased vascularity and left effusion Signer Name: Asaf Santiago MD Signed: 12/16/2020 10:55 PM Workstation Name: [id number]
--- NOTE | 2020-12-16 23:04 | Emergency Department Report ---
ED Shortness of Breath HPI - General Chief Complaint: Chest Pain Stated Complaint: SOB/CHEST PAIN Time Seen by Provider: 12/16/20 22:41 Source: patient Mode of arrival: Wheelchair Limitations: No Limitations - History of Present Illness Initial Comments: Patient is a 70-year-old female that presents emergency room with complaints of shortness of breath. Patient states shortness of breath been going on and off for couple months but over the past 3 days has been consistent and constant. Patient states that shortness of breath is worsening. Patient states that she is having severe and worsening dyspnea on exertion. Patient states her shortness of breath is better with rest and worse with exertion. Patient states she feels like her lungs are filling up with fluid. Patient states that her dips exertion is so bad that she has near syncopal symptoms. Patient states her symptoms will improve when she rest. Patient states that her primary care is already sent her to a manager fiber she is waiting for appointment. Patient states she has a past medical history of hypertension chronic kidney disease stage V not on dialysis. Patient states t hat she sees a forest and conservation worker, Dr. Miles. Patient that she is compliant with her medications. Patient denies chest pain. Patient denies fever and chills. Patient denies recent travel. Patient denies recent international travel. Patient denies exposure to the novel coronavirus. Patient denies sick contacts. Patient denies fever and chills. Patient denies cough. Patient denies diarrhea. Patient denies coming in contact with anybody with symptoms of the novel coronavirus. Complaint: shortness of breath -: Gradual - Related Data Home Medications Medication Instructions Recorded Confirmed Last Taken amLODIPine 10 mg PO DAILY 01/01/19 08/28/19 08/30/19 06:10 cloNIDine [Catapres] 0.2 mg PO BID 01/01/19 08/28/19 08/30/19 06:10 raNITIdine HCL [Heartburn Relief] 75 mg PO DAILY 01/01/19 08/30/19 1 Week Ago ~08/23/19 Aranesp 1 ampul Q4W 08/30/19 08/30/19 08/12/19 Cinacalcet HCl 30 mg PO DAILY 08/30/19 08/30/19 08/28/19 Previous Rx's Medication Instructions Recorded Last Taken Type Acetamin/Codeine 120-12Mg/5 ml 5 ml PO Q6HR PRN #100 oral.liqd 08/30/19 Unknown Rx [Tylenol/Codeine 120-12 mg/5 ml] oxyCODONE /ACETAMINOPHEN [Percocet 1 tab PO Q6HR PRN #24 tablet 08/30/19 Unknown Rx 5/325 mg] Allergies Allergy/AdvReac Type Severity Reaction Status Date / Time ampicillin Allergy Vomiting Verified 03/27/19 13:04 lisinopril Allergy Swelling Verified 03/27/19 13:04 ED Review of Systems ROS: Stated complaint: SOB/CHEST PAIN Other details as noted in HPI Constitutional: denies: chills, fever Eyes: denies: eye pain, eye discharge, vision change ENT: denies: ear pain, throat pain Respiratory: shortness of breath, SOB with exertion, SOB at rest. denies: cough, wheezing Cardiovascular: denies: chest pain, palpitations Endocrine: no symptoms reported Gastrointestinal: denies: abdominal pain, nausea, diarrhea Genitourinary: denies: urgency, dysuria, discharge Musculoskeletal: denies: back pain, joint swelling, arthralgia Skin: denies: rash, lesions Neurological: denies: headache, weakness, paresthesias Psychiatric: denies: anxiety, depression Hematological/Lymphatic: denies: easy bleeding, easy bruising ED Past Medical Hx - Past Medical History Previous Medical History?: Yes Hx Hypertension: Yes Hx GERD: Yes Hx Renal Disease: Yes (Stage V seeing a Immersion Metalcleaner) Additional medical history: Seeing kidney doctor monthly for kidney disease, Heart Murmur, Has a Av graft/fistula placed in right arm but not accessed yet - Surgical History Past Surgical History?: Yes Additional Surgical History: Hysterectomy, Right AV graft/fistula not accessed yet - Social History Smoking Status: Never Smoker - Medications Home Medications: Home Medications Medication Instructions Recorded Confirmed Last Taken Type amLODIPine 10 mg PO DAILY 01/01/19 08/28/19 08/30/19 06:10 History cloNIDine [Catapres] 0.2 mg PO BID 01/01/19 08/28/19 08/30/19 06:10 History raNITIdine HCL [Heartburn Relief] 75 mg PO DAILY 01/01/19 08/30/19 1 Week Ago History ~08/23/19 Acetamin/Codeine 120-12Mg/5 ml 5 ml PO Q6HR PRN #100 oral.liqd 08/30/19 Unknown Rx [Tylenol/Codeine 120-12 mg/5 ml] Aranesp 1 ampul Q4W 08/30/19 08/30/19 08/12/19 History Cinacalcet HCl 30 mg PO DAILY 08/30/19 08/30/19 08/28/19 History oxyCODONE /ACETAMINOPHEN [Percocet 1 tab PO Q6HR PRN #24 tablet 08/30/19 Unknown Rx 5/325 mg] ED Physical Exam - General Limitations: No Limitations General appearance: alert, in no apparent distress - Head Head exam: Present: atraumatic, normocephalic - Eye Eye exam: Present: normal appearance - ENT ENT exam: Present: mucous membranes moist - Neck Neck exam: Present: normal inspection - Respiratory Respiratory exam: Present: rales, decreased breath sounds. Absent: respiratory distress, wheezes, rhonchi - Cardiovascular Cardiovascular Exam: Present: regular rate, normal rhythm. Absent: systolic murmur, diastolic murmur, rubs, gallop - GI/Abdominal GI/Abdominal exam: Present: soft, normal bowel sounds. Absent: distended, tenderness, guarding - Extremities Exam Extremities exam: Present: normal inspection - Back Exam Back exam: Present: normal inspection - Neurological Exam Neurological exam: Present: alert, oriented X3 - Psychiatric Psychiatric exam: Present: normal affect, normal mood - Skin Skin exam: Present: warm, dry, intact, normal color. Absent: rash ED Course Vital Signs 12/16/20 12/16/20 20:53 23:12 Temperature 98.5 F Pulse Rate 80 83 Respiratory 18 23 Rate Blood Pressure 138/65 Blood Pressure 141/65 [Left] O2 Sat by Pulse 96 97 Oximetry - Reevaluation(s) Reevaluation #1: I discussed all results with patient. I discussed plan of care with patient. Patient agrees with plan of care and admission. Patient to be admitted to the hospitalist service. 12/16/20 23:32 - Consultations Consultation #1: Hospitalist consulted for admission. Hospitalist to admit patient. 12/16/20 23:32 ED Medical Decision Making - Lab Data Result diagrams: 12/16/20 21:29 12/16/20 21:29 - EKG Data -: EKG Interpreted by Me EKG shows normal: sinus rhythm, axis, intervals, QRS complexes, ST-T waves - EKG Data Interpretation: [facility] - Radiology Data Radiology results: report reviewed, image reviewed interpreted by me: Chest x-ray: No pneumonia, no pneumothorax, no foreign body, no osseous findings, pulmonary edema and cardiomegaly CHEST 2 VIEWS INDICATION / CLINICAL INFORMATION: Shortness of breath. COMPARISON: None available. FINDINGS: SUPPORT DEVICES: None. HEART / MEDIASTINUM: Cardiomegaly LUNGS / PLEURA: Mild increased interstitial prominence and pulmonary vascularity with small left effusion No pneumothorax. ADDITIONAL FINDINGS: No significant additional findings. IMPRESSION: Cardiomegaly with mild increased vascularity and left effusion - Medical Decision Making Patient is a 70-year-old female who presents emergency room with shortness of breath and dyspnea exertion and is worsening. Patient has history of CKD and hypertension. Patient is not on dialysis. Patient had labs done which were consistent with chronic kidney disease and anemia. Patient still makes urine. Patient shows a creatinine shows pulmonary edema and cardiomegaly. Patient had an EKG done which showed no acute findings and a normal ST segment. I personally reviewed the EKG and the chest x-ray. Patient admitted to the hospital service for further evaluation treatment. Critical care time documented due to the multiple reassessments, prolonged time at the bedside, interpretation of diagnostics and labs. - Differential Diagnosis New onset CHF, shortness of breath, SOLANO, volume overload Critical Care Time: Yes Critical care time in (mins) excluding proc time.: 35 Critical care attestation.: If time is entered above; I have spent that time in minutes in the direct care of this critically ill patient, excluding procedure time. Critical Care Time: 35 minutes ED Disposition Clinical Impression: Shortness of breath, SOLANO (dyspnea on exertion), Pulmonary edema cardiac cause, New onset of congestive heart failure, Elevated troponin I level CKD (chronic kidney disease) Qualifiers: Chronic kidney disease stage: stage 5, not on chronic dialysis Qualified Code(s): N18.5 - Chronic kidney disease, stage 5 Hypertension Qualifiers: Hypertension type: essential hypertension Qualified Code(s): I10 - Essential (primary) hypertension CHF (congestive heart failure) Qualifiers: Heart failure type: unspecified Heart failure chronicity: unspecified Qualified Code(s): I50.9 - Heart failure, unspecified Disposition: 09 OP ADMIT IP TO THIS HOSP Is pt being admited?: Yes Does the pt Need Aspirin: No Condition: Critical Instructions: Pulmonary Edema (ED), Hypertension (ED) Time of Disposition: 23:32
[2020-12-16] MEDS ORDERED: NITROGLYCERIN 0.4 MG TAB SUBL SL PRN (23:54)
[2020-12-16] MEDS ORDERED: DEXTROSE 50% IN WATER (25GM) 50 ML SYRINGE IV PRN (23:54)
[2020-12-16] MEDS ORDERED: ALBUTEROL 2.5 MG/3 ML NEBU IH PRN (23:54)
--- NOTE | 2020-12-17 00:03 | History and Physical Report ---
History of Present Illness Date of examination: 12/16/20 Date of admission: 12/16/2020 Chief complaint: SOB History of present illness: 70-year-old -[place] female with history of CKD stage V (not on HD), hypertension, heart murmur, and HLD who presents [facility] ED with complaints of shortness of breath. Patient states she has been experiencing intermittent sh ortness of breath over the past couple of months however it has become constant and worsened over the past 3 days. Endorses profound dyspnea on exertion which is improved with rest, orthopnea, sleeping upright using 3 pillows, unable to walk up 1 flight of stairs. She states that she feels like her lungs are filling up with fluid. Patient is concerned about her cardiac health because she has a strong family history of heart failure. Both of her parents had heart failure, her sister has heart failure, and her brother from a massive [place] (yesterday 12/15 in [facility]). Her primary care physician has referred her to a telecommunicator and she is waiting for an appointment. Her procurement internship is Dr. Miles, which she sees on a regular basis. Endorses compliance with meds. Denies chest pain, palpitation, blurred vision, nausea, vomiting, diarrhea, fever, lightheadedness, alterations in gait, abdominal pain, lower extremity edema, or recent sick contacts. Review of medical record shows patient was seen in August 2019 for ambulatory surgery for placement of right upper arm AV fistula. Past History Past Medical History: diabetes, hypertension, hyperlipidemia, renal failure (CKD5), other (Heart murmur) Past Surgical History: hysterectomy, Other (Right upper arm AV fistula ) Social history: single, lives with family, full code. denies: smoking, alcohol abuse, IV drug use Family history: other (mother and father: CHF, sister CHF, bother [place]) Medications and Allergies Allergies Allergy/AdvReac Type Severity Reaction Status Date / Time ampicillin Allergy Vomiting Verified 03/27/19 13:04 lisinopril Allergy Swelling Verified 03/27/19 13:04 Home Medications Medication Instructions Recorded Confirmed Last Taken Type amLODIPine 10 mg PO DAILY 01/01/19 08/28/19 08/30/19 06:10 History cloNIDine [Catapres] 0.2 mg PO BID 01/01/19 08/28/19 08/30/19 06:10 History raNITIdine HCL [Heartburn Relief] 75 mg PO DAILY 01/01/19 08/30/19 1 Week Ago History ~08/23/19 Acetamin/Codeine 120-12Mg/5 ml 5 ml PO Q6HR PRN #100 oral.liqd 08/30/19 Unknown Rx [Tylenol/Codeine 120-12 mg/5 ml] Aranesp 1 ampul Q4W 08/30/19 08/30/19 08/12/19 History Cinacalcet HCl 30 mg PO DAILY 08/30/19 08/30/19 08/28/19 History oxyCODONE /ACETAMINOPHEN [Percocet 1 tab PO Q6HR PRN #24 tablet 08/30/19 Unknown Rx 5/325 mg] Active Meds: Active Medications Acetaminophen (Acetaminophen 325 Mg Tab) 650 mg PO Q4H PRN PRN Reason: Pain MILD(1-3)/Fever >100.5/GILMORE Albuterol (Albuterol 2.5 Mg/3 Ml Nebu) 2.5 mg IH Q3HRT PRN PRN Reason: Shortness Of Breath Amlodipine Besylate (Amlodipine 10 Mg Tab) 10 mg PO DAILY CHRISTIANE Dextrose (Dextrose 50% In Water (25gm) 50 Ml Syringe) 50 ml IV Q30MIN PRN; Protocol PRN Reason: Hypoglycemia Docusate Sodium (Docusate Sodium 100 Mg Cap) 100 mg PO BID CHRISTIANE Insulin Human Lispro (Insulin Lispro 100 Unit/Ml) 0 unit SUB-Q ACHS CHRISTIANE; Protocol Nitroglycerin (Nitroglycerin 0.4 Mg Tab Subl) 0.4 mg SL .Q5MIN PRN PRN Reason: Chest Pain Ondansetron HCl (Ondansetron 4 Mg/2 Ml Inj) 4 mg IV Q6H PRN PRN Reason: Nausea And Vomiting Sodium Chloride (Sodium Chloride 0.9% 10 Ml Flush Syringe) 10 ml IV BID CHRISTIANE Sodium Chloride (Sodium Chloride 0.9% 10 Ml Flush Syringe) 10 ml IV PRN PRN PRN Reason: LINE FLUSH Review of Systems All systems: negative (As noted in HPI) Exam - Physical Exam Narrative exam: Physical exam General appearance: Present: No acute distress, alert and oriented 3, well- developed, well-nourished older adult -[place] female - EENT Eyes: Present: PERRL, EOM intact ENT: hearing intact, normal dentition - Neck Neck: Present: supple, normal ROM - Respiratory Respiratory effort: Non-labored Respiratory: Clear throughout - Cardiovascular Heart rate: 82 (bpm) Rhythm: Sinus Heart Sounds: Present: S1 & S2. Murmur noted absent: rub, click - Extremities Extremities: no ischemia, pulses intact, right upper arm AV fistula - Peripheral Assessment Peripheral Pulses: within normal limits - Abdominal General gastrointestinal: Obese, soft, non-tender, normal bowel sounds - Integumentary Integumentary: Present: warm, dry - Musculoskeletal Musculoskeletal: Able to move all extremities -Neurological Neurological: CN II-XII intact - Psychiatric Psychiatric: Appropriate for situation ,cooperative - Constitutional Vitals: Temp Pulse Resp BP Pulse Ox 98.5 F 83 23 141/65 97 12/16/20 20:53 12/16/20 23:12 12/16/20 23:12 12/16/20 23:12 12/16/20 23:12 HEART Score - HEART Score Troponin: WBC 7.2 K/mm3 (4.5-11.0) 12/16/20 21: RBC 2.69 M/mm3 (3.65-5.03) L 12/16/20 21:29 Hgb 7.9 gm/dl (10.1-14.3) L 12/16/20 21: Hct 24.7 % (30.3-42.9) L 12/16/20 21: MCV 92 fl (79-97) 12/16/20 21: MCH 29 pg (28-32) 12/16/20 21: MCHC 32 % (30-34) 12/16/20 21: RDW 17.5 % (13.2-15.2) H 12/16/20 21:29 Plt Count 304 K/mm3 (140-440) 12/16/20 21: Lymph % (Auto) 5.9 % (13.4-35.0) L 12/16/20 21: [place] % (Auto) 5.5 % (0.0-7.3) 12/16/20 21: Eos % (Auto) 1.3 % (0.0-4.3) 12/16/20 21: Baso % (Auto) 1.0 % (0.0-1.8) 12/16/20 21: Lymph # (Auto) 0.4 K/mm3 (1.2-5.4) L 12/16/20 21: [place] # (Auto) 0.4 K/mm3 (0.0-0.8) 12/16/20 21:29 Eos # (Auto) 0.1 K/mm3 (0.0-0.4) 12/16/20 21: Baso # (Auto) 0.1 K/mm3 (0.0-0.1) 12/16/20 21: Seg Neutrophils % 86.3 % (40.0-70.0) H 12/16/20 21: Seg Neutrophils # 6.3 K/mm3 (1.8-7.7) 12/16/20: PT 13.5 Sec. (12.2-14.9) 12/16/20 21: INR 0.98 (0.87-1.13) 12/16/20: APTT 32.3 Sec. (24.2-36.6) 12/16/20 21:41 Sodium 134 mmol/L (137-145) L 12/16/20 21: Potassium 4.8 mmol/L (3.6-5.0) 12/16/20: Chloride 106.9 mmol/L (98-107) 12/16/20 21: Carbon Dioxide 18 mmol/L (22-30) L 12/16/20 21: Anion Gap 14 mmol/L 12/16/20 21: BUN 55 mg/dL (7-17) H 12/16/20 21: Creatinine 7.9 mg/dL (0.6-1.2) H 12/16/20 21: Estimated GFR 6 ml/min 12/16/20: BUN/Creatinine Ratio 7 % 12/16/20: Glucose 100 mg/dL (65-100) 12/16/20: Calcium 9.9 mg/dL (8.4-10.2) 12/16/20 21: Total Bilirubin 0.30 mg/dL (0.1-1.2) 12/16/20 21: AST 10 units/L (5-40) 12/16/20 21:29 ALT 7 units/L (7-56) 12/16/20 21: Alkaline Phosphatase 106 units/L (35-129) 12/16/20 21: Troponin T 0.613 ng/mL (0.00-0.029) H* 12/16/20 21: Total Protein 7.1 g/dL (6.3-8.2) 12/16/20: Albumin 3.9 g/dL (3.9-5) 12/16/20: Albumin/Globulin Ratio 1.2 % 12/16/20: Triglycerides 127 mg/dL (2-149) 12/16/20: Cholesterol 210 mg/dL (50-199) H 12/16/20: LDL Cholesterol Direct 150 mg/dL (50-130) H 12/16/20: HDL Cholesterol 44 mg/dL (40-59) 12/16/20 Cholesterol/HDL Ratio 4.77 % 12/16/20: Results - Labs CBC & Chem 7: 12/16/20 21:12/16/20: Labs: Laboratory Last Values WBC 7.2 K/mm3 (4.5-11.0) 12/16/20: RBC 2.69 M/mm3 (3.65-5.03) L 12/16/20: Hgb 7.9 gm/dl (10.1-14.3) L 12/16/20: Hct 24.7 % (30.3-42.9) L 12/16/20: MCV 92 fl (79-97) 12/16/20: MCH 29 pg (28-32) 12/16/20: MCHC 32 % (30-34) 12/16/20: RDW 17.5 % (13.2-15.2) H 12/16/20: Plt Count 304 K/mm3 (140-440) 12/16/20: Lymph % (Auto) 5.9 % (13.4-35.0) L 12/16/20: [place] % (Auto) 5.5 % (0.0-7.3) 12/16/20: Eos % (Auto) 1.3 % (0.0-4.3) 12/16/20 21: Baso % (Auto) 1.0 % (0.0-1.8) 12/16/20 21: Lymph # (Auto) 0.4 K/mm3 (1.2-5.4) L 12/16/20 21: [place] # (Auto) 0.4 K/mm3 (0.0-0.8) 12/16/20 21: Eos # (Auto) 0.1 K/mm3 (0.0-0.4) 12/16/20 21: Baso # (Auto) 0.1 K/mm3 (0.0-0.1) 12/16/20: Seg Neutrophils % 86.3 % (40.0-70.0) H 12/16/20: Seg Neutrophils # 6.3 K/mm3 (1.8-7.7) 12/16/20: PT 13.5 Sec. (12.2-14.9) 12/16/20 21:41 INR 0.98 (0.87-1.13) 12/16/20 21: APTT 32.3 Sec. (24.2-36.6) 12/16/20 21:41 Sodium 134 mmol/L (137-145) L 12/16/20 21: Potassium 4.8 mmol/L (3.6-5.0) 12/16/20 21: Chloride 106.9 mmol/L (98-107) 12/16/20: Carbon Dioxide 18 mmol/L (22-30) L 12/16/20 21: Anion Gap 14 mmol/L 12/16/20 21: BUN 55 mg/dL (7-17) H 12/16/20 21: Creatinine 7.9 mg/dL (0.6-1.2) H 12/16/20 21: Estimated GFR 6 ml/min 12/16/20 21: BUN/Creatinine Ratio 7 % 12/16/20: Glucose 100 mg/dL (65-100) 12/16/20 21: Calcium 9.9 mg/dL (8.4-10.2) 12/16/20: Total Bilirubin 0.30 mg/dL (0.1-1.2) 12/16/20 21: AST 10 units/L (5-40) 12/16/20: ALT 7 units/L (7-56) 12/16/20 21: Alkaline Phosphatase 106 units/L (35-129) 12/16/20 21: Troponin T 0.613 ng/mL (0.00-0.029) H* 12/16/20: Total Protein 7.1 g/dL (6.3-8.2) 12/16/20: Albumin 3.9 g/dL (3.9-5) 12/16/20: Albumin/Globulin Ratio 1.2 % 12/16/20: Triglycerides 127 mg/dL (2-149) 12/16/20: Cholesterol 210 mg/dL (50-199) H 12/16/20: LDL Cholesterol Direct 150 mg/dL (50-130) H 12/16/20: HDL Cholesterol 44 mg/dL (40-59) 12/16/20: Cholesterol/HDL Ratio 4.77 % 12/16/20: - Imaging and Cardiology Chest x-ray: report reviewed (IMPRESSION: Cardiomegaly with mild increased vascularity and left effusion ), image reviewed Assessment and Plan Assessment and plan: Acute CHF (new onset) -On continuous [place] [address] -Troponin elevated x2, will continue to trend ?? May be due to cardio renal syndrome -CXR shows Cardiomegaly with mild increased vascularity and left effusion -Okay for trial dose of IV Lasix 20 mg x 1, will defer diuresis per cardiology recommendations -Echo pending -Started Coreg twice daily, holding ROSANA/ARB due to renal function -Cardiology consulted HTN -Monitor BP -Hold home meds for now -start Coreg 6.25 mg twice daily -IV antihypertensive when necessary -Pending recs from cardiology and procurement internship CKD stage V -Continues to make urine -Right upper arm AV fistula placed 08/2019 -Follows Dr. Miles as outpatient -Creatinine 7.9 on admission -Avoid nephrotoxic agents -Monitor renal function -Nephrology (Dr. Miles) consulted, recs appreciated HLD -Patient reports previously on statin was DC'd by procurement internship due to concerns for worsening renal failure -Hold off on starting statin for now DVT and GI PPX -On heparin and Pepcid Advance Directives: No VTE prophylaxis?: Chemical, Mechanical Plan of care discussed with patient/family: Yes
[2020-12-17] MEDS ORDERED: FUROSEMIDE 20 MG/2 ML INJ IV ONE (00:56)
[2020-12-17 04:56] LABS: Calcium 9.7 mg/dL (8.4-10.2)
[2020-12-17 05:13] LABS: Basophils % (Auto) 0.6 % (0.0-1.8); Eosinophils # (Auto) 0.1 K/mm3 (0.0-0.4); Eosinophils % (Auto) 1.4 % (0.0-4.3); Hematocrit 23.4 % (30.3-42.9); Hemoglobin 7.5 gm/dl (10.1-14.3); Lymphocytes # (Auto) 0.7 K/mm3 (1.2-5.4); Lymphocytes % (Auto) 8.4 % (13.4-35.0); Mean Corpuscular HGB Conc 32 % (30-34); Mean Corpuscular Volume 91 fl (79-97); Monocytes # (Auto) 0.5 K/mm3 (0.0-0.8); Monocytes % (Auto) 6.1 % (0.0-7.3); Platelet Count 288 K/mm3 (140-440); Red Blood Count 2.56 M/mm3 (3.65-5.03); Red Cell Distribution Width 17.3 % (13.2-15.2)
[2020-12-17] MEDS ORDERED: FUROSEMIDE 20 MG/2 ML INJ ONE (05:27)
[2020-12-17] MEDS ORDERED: INSULIN LISPRO 100 UNIT/ML SUB-Q SCH (07:30)
--- NOTE | 2020-12-17 08:57 | Consultation ---
History of Present Illness - Reason for Consult Consult date: 12/17/20 acute renal failure - History of Present Illness Mrs. Cramer is a stage V CKD followed by Dr. Sebastian Miles (last seen December 02 2020) and hypertension who presented [facility] with complaints of shortness of breath. Patient reports progressive worsening of dyspnea over the past month. In addition, she reports 3 pillow orthopnea and SOLANO w/ 1 flight of stairs. She denies chest pain, palpitation; she denies nausea, vomiting, diarrhea; she reports metallic taste -intermittent. Past History Past Medical History: diabetes, hypertension, hyperlipidemia, renal failure (CKD5), other (Heart murmur) Past Surgical History: hysterectomy, Other (Right upper arm AV fistula ) Social history: single, lives with family, full code. denies: smoking, alcohol abuse, IV drug use Family history: other (mother and father: CHF, sister CHF, bother [place]) Medications and Allergies Allergies Allergy/AdvReac Type Severity Reaction Status Date / Time ampicillin Allergy Vomiting Verified 03/27/19 13:04 lisinopril Allergy Swelling Verified 03/27/19 13:04 Home Medications Medication Instructions Recorded Confirmed Last Taken Type amLODIPine 10 mg PO DAILY 01/01/19 12/17/20 08/30/19 06:10 History cloNIDine [Catapres] 0.2 mg PO BID 01/01/19 12/17/20 08/30/19 06:10 History raNITIdine HCL [Heartburn Relief] 75 mg PO DAILY 01/01/19 12/17/20 1 Week Ago History ~08/23/19 Aranesp 1 ampul INHALATION Q4W PRN 08/30/19 12/17/20 08/12/19 History Cinacalcet HCl 30 mg PO DAILY 08/30/19 12/17/20 08/28/19 History oxyCODONE /ACETAMINOPHEN [Percocet 1 tab PO Q6HR PRN #24 tablet 08/30/19 12/17/20 Unknown Rx 5/325 mg] Active Meds: Active Medications Acetaminophen (Acetaminophen 325 Mg Tab) 650 mg PO Q4H PRN PRN Reason: Pain MILD(1-3)/Fever >100.5/GILMORE Albuterol (Albuterol 2.5 Mg/3 Ml Nebu) 2.5 mg IH Q3HRT PRN PRN Reason: Shortness Of Breath Carvedilol (Carvedilol 6.25 Mg Tab) 6.25 mg PO BID CHRISTIANE Dextrose (Dextrose 50% In Water (25gm) 50 Ml Syringe) 50 ml IV Q30MIN PRN; Protocol PRN Reason: Hypoglycemia Docusate Sodium (Docusate Sodium 100 Mg Cap) 100 mg PO BID CHRISTIANE Famotidine (Famotidine 10 Mg Tab) 10 mg PO BID CHRISTIANE Heparin Sodium (Porcine) (Heparin 5,000 Unit/1 Ml Vial) 5,000 unit SUB-Q BID CHRISTIANE Nitroglycerin (Nitroglycerin 0.4 Mg Tab Subl) 0.4 mg SL .Q5MIN PRN PRN Reason: Chest Pain Ondansetron HCl (Ondansetron 4 Mg/2 Ml Inj) 4 mg IV Q6H PRN PRN Reason: Nausea And Vomiting Sodium Chloride (Sodium Chloride 0.9% 10 Ml Flush Syringe) 10 ml IV BID CHRISTIANE Sodium Chloride (Sodium Chloride 0.9% 10 Ml Flush Syringe) 10 ml IV PRN PRN PRN Reason: LINE FLUSH Review of Systems All systems: negative Exam - Vital Signs Vital signs: Vital Signs Temp Pulse Resp BP Pulse Ox 98.5 F 80 18 138/65 96 12/16/20 20:53 12/16/20 20:53 12/16/20 20:53 12/16/20 20:53 12/16/20 20:53 - General Appearance General appearance: well-developed, well-nourished EENT: ATNC Neck: Present: neck supple Respiratory: Decreased Breath Sounds Heart: regular, S1S2, systolic murmur Gastrointestinal: Present: normal, obese. Absent: tenderness, distended Integumentary: no rash, warm and dry Neurologic: no focal deficit, alert and oriented x3 Musculoskeletal: Present: other (Trace edema; BRENT AVG + bruit) Psychiatric: cooperative Results - Lab Results 12/17/20 03:47 12/17/20 03:47 Most recent lab results Calcium 9.7 mg/dL (8.4-10.2) 12/17/20 03:47 Assessment and Plan Impression: * End stage renal disease, new * Uremia * Pulmonary edema * Elevated troponin * Metabolic acidosis * Anemia secondary to ESRD * Hypertension Plan: * Recommend initation of renal replacement therapy at this time * TTE ordered and cardiology consultation pending - will hold HD pending evaluation * Will plan to start HD tomorrow (patient now agreeable). UF as tolerated * Lasix 80mg IV x 1 dose * Obtain hepatitis panel * Consult CM for outpatient HD clinic placement * Obtain iron stores and replete prn * Epogen TIW prn * Renal/HD diet * AM labs
--- NOTE | 2020-12-17 09:22 | Consultation ---
History of Present Illness Consult date: 12/17/20 Requesting physician: RIKA NEWSOME Consult reason: congestive heart failure History of present illness: Pt is a 70-year-old AA female with a hx of CKD who presented with complaints of progressively worsening SOB over the past few weeks. Pt states that she became severely SOB while showering the day of presentation. She reports a substernal tingling vs burning sensation in her chest as well. She states that she had to crawl out of the shower and lie down. Her symptoms improved with rest. Chest pain lasted approximately 30 min x 1 episode. Associated with lightheadedness. No additional cardiac complaints reported. Upon arrival, BNP noted to be signficantly elevated > 15k. CXR reveals cardiomegaly and pulmonary vascular congestion. Pt is currently awaiting initiation of HD. Past History Past Medical History: hypertension, hyperlipidemia, renal failure Past Surgical History: hysterectomy, Other (R AV fistula ). denies: valve replacement, CABG, PTCA Social history: single, lives with family. denies: smoking, alcohol abuse Family history: CAD Medications and Allergies Allergies Allergy/AdvReac Type Severity Reaction Status Date / Time ampicillin Allergy Vomiting Verified 03/27/19 13:04 lisinopril Allergy Swelling Verified 03/27/19 13:04 Home Medications Medication Instructions Recorded Confirmed Last Taken Type amLODIPine 10 mg PO DAILY 01/01/19 12/17/20 08/30/19 06:10 History cloNIDine [Catapres] 0.2 mg PO BID 01/01/19 12/17/20 08/30/19 06:10 History raNITIdine HCL [Heartburn Relief] 75 mg PO DAILY 01/01/19 12/17/20 1 Week Ago History ~08/23/19 Aranesp 1 ampul INHALATION Q4W PRN 08/30/19 12/17/20 08/12/19 History Cinacalcet HCl 30 mg PO DAILY 08/30/19 12/17/20 08/28/19 History oxyCODONE /ACETAMINOPHEN [Percocet 1 tab PO Q6HR PRN #24 tablet 08/30/19 12/17/20 Unknown Rx 5/325 mg] Active Meds: Active Medications Acetaminophen (Acetaminophen 325 Mg Tab) 650 mg PO Q4H PRN PRN Reason: Pain MILD(1-3)/Fever >100.5/GILMORE Albuterol (Albuterol 2.5 Mg/3 Ml Nebu) 2.5 mg IH Q3HRT PRN PRN Reason: Shortness Of Breath Carvedilol (Carvedilol 6.25 Mg Tab) 6.25 mg PO BID CHRISTIANE Dextrose (Dextrose 50% In Water (25gm) 50 Ml Syringe) 50 ml IV Q30MIN PRN; Protocol PRN Reason: Hypoglycemia Docusate Sodium (Docusate Sodium 100 Mg Cap) 100 mg PO BID CHRISTIANE Famotidine (Famotidine 10 Mg Tab) 10 mg PO BID CHRISTIANE Heparin Sodium (Porcine) (Heparin 5,000 Unit/1 Ml Vial) 5,000 unit SUB-Q BID CHRISTIANE Nitroglycerin (Nitroglycerin 0.4 Mg Tab Subl) 0.4 mg SL .Q5MIN PRN PRN Reason: Chest Pain Ondansetron HCl (Ondansetron 4 Mg/2 Ml Inj) 4 mg IV Q6H PRN PRN Reason: Nausea And Vomiting Sodium Chloride (Sodium Chloride 0.9% 10 Ml Flush Syringe) 10 ml IV BID CHRISTIANE Sodium Chloride (Sodium Chloride 0.9% 10 Ml Flush Syringe) 10 ml IV PRN PRN PRN Reason: LINE FLUSH Review of Systems Constitutional: no fever, no chills Ears, nose, mouth and throat: no nasal congestion, no sore throat Cardiovascular: chest pain, orthopnea, lightheadedness, shortness of breath, dyspnea on exertion, no palpitations, no edema, no syncope, no claudication Respiratory: shortness of breath, dyspnea on exertion, no cough Gastrointestinal: no abdominal pain, no nausea, no vomiting, no diarrhea, no constipation Genitourinary Female: no pelvic pain, no flank pain, no dysuria Musculoskeletal: no neck stiffness, no neck pain, no myalgias Integumentary: no rash, no wounds Neurological: no head injury, no paralysis, no weakness, no parathesias, no numbness, no tingling, no seizures, no syncope, no vertigo, no headaches Endocrine: no cold intolerance, no heat intolerance Hematologic/Lymphatic: no easy bruising, no easy bleeding Allergic/Immunologic: no anaphylaxis Physical Examination Last Vital Signs Temp 98.2 F 12/17/20 11:23 Pulse 79 12/17/20 13:13 Resp 18 12/17/20 11:23 BP 149/71 12/17/20 11:23 Pulse Ox 94 12/17/20 11:23 General appearance: no acute distress HEENT: Positive: EOMI, Normocephaly, Mucus Membranes Moist Neck: Positive: neck supple, trachea midline Cardiac: Positive: Reg Rate and Rhythm, S1/S2, Systolic Murmur (2/6 MEHRAN) Lungs: Positive: Rales (bibasilar) Neuro: Positive: Grossly Intact Abdomen: Positive: Soft. Negative: Tender Skin: Negative: Rash Musculoskeletal: No Pain Extremities: Present: lower extr. pulses, edema (trace BLE), warm Results 12/17/20 03:47 12/17/20 03:47 Cardiac Enzymes 12/16/20 Range/Units 21:29 AST 10 (5-40) units/L Coagulation 12/16/20 Range/Units 21:41 PT 13.5 (12.2-14.9) Sec. INR 0.98 (0.87-1.13) APTT 32.3 (24.2-36.6) Sec. Lipids 12/16/20 Range/Units 21:29 Triglycerides 127 (2-149) mg/dL Cholesterol 210 H (50-199) mg/dL HDL Cholesterol 44 (40-59) mg/dL Cholesterol/HDL Ratio 4.77 % CBC 12/16/20 12/17/20 Range/Units 21:29 03:47 WBC 7.2 7.8 (4.5-11.0) K/mm3 RBC 2.69 L 2.56 L (3.65-5.03) M/mm3 Hgb 7.9 L 7.5 L (10.1-14.3) gm/dl Hct 24.7 L 23.4 L (30.3-42.9) % Plt Count 304 288 (140-440) K/mm3 Lymph # (Auto) 0.4 L 0.7 L (1.2-5.4) K/mm3 [place] # (Auto) 0.4 0.5 (0.0-0.8) K/mm3 Eos # (Auto) 0.1 0.1 (0.0-0.4) K/mm3 Baso # (Auto) 0.1 0.0 (0.0-0.1) K/mm3 Comprehensive Metabolic Panel 06/23/21 06/24/21 Range/Units 21:29 03:47 Sodium 134 L 135 L (137-145) mmol/L Potassium 4.8 4.6 (3.6-5.0) mmol/L Chloride 106.9 108.0 H (98-107) mmol/L Carbon Dioxide 18 L 18 L (22-30) mmol/L BUN 55 H 53 H (7-17) mg/dL Creatinine 7.9 H 8.2 H (0.6-1.2) mg/dL Glucose 100 123 H (65-100) mg/dL Calcium 9.9 9.7 (8.4-10.2) mg/dL AST 10 (5-40) units/L ALT 7 (7-56) units/L Alkaline Phosphatase 106 (35-129) units/L Total Protein 7.1 (6.3-8.2) g/dL Albumin 3.9 (3.9-5) g/dL - Imaging and Cardiology Echo: report reviewed (12/17/2020 - mild LVH, EF 50-55%, impaired LV relaxation, severe w/max gradient 56.44mmHg, LA mod dilated, mild-mod MR, mod pulm HTN w/RVSP 64mmHg, mild TR) Cardiac cath: pending EKG: report reviewed, image reviewed - EKG Interpretation EKG: no acute changes EKG interpretations - Telemetry EKG Rhythm: Sinus Rhythm - EKG Sinus rhythms and dysrhythmias: sinus rhythm Myocardial infarction: septal NH (old age or ind, anterior NH (old age or i Assessment and Plan Echo reviewed - mild LVH, EF 50-55%, impaired LV relaxation, severe w/max gradient 56.44mmHg, LA mod dilated, mild-mod MR, mod pulm HTN w/RVSP 64mmHg, mild TR. Volume optimization via HD. Plan for LHC on Monday AM if clinically stable. Depending on cath findings, may need to consider eventual transfer to [facility] for intervention of aortic valve. Statin on hold per Nephro. Continue bASA and BB. Pt seen in conjunction with Dr. Twyla Mcgraw, who agrees with the assessment and plan of care. - Patient Problems (1) Acute heart failure with preserved ejection fraction (HFpEF) Current Visit: Yes Status: Acute (2) ESRD needing dialysis Current Visit: Yes Status: Acute (3) Anemia Current Visit: Yes Status: Acute (4) Pre-syncope Current Visit: Yes Status: Acute (5) Severe aortic stenosis Current Visit: Yes Status: Acute (6) Pulmonary HTN Current Visit: Yes Status: Chronic (7) Hypertension Current Visit: Yes Status: Chronic Qualifiers: Hypertension type: essential hypertension Qualified Code(s): I10 - Essential (primary) hypertension (8) HLD (hyperlipidemia) Current Visit: Yes Status: Chronic Qualifiers: Hyperlipidemia type: mixed hyperlipidemia Qualified Code(s): E78.2 - Mixed hyperlipidemia (9) NSTEMI (non-ST elevated myocardial infarction) Current Visit: Yes Status: Acute Plan to address problem: Type 2
[2020-12-17] MEDS ORDERED: FUROSEMIDE 40 MG/4 ML INJ IV SCH (10:00)
[2020-12-17] MEDS ORDERED: amLODIPine 10 MG TAB PO SCH (10:00)
--- NOTE | 2020-12-17 10:29 | Progress Note ---
Assessment and Plan Assessment and plan: Acute CHF (new onset) with preserved LV [place] [address] -Troponin elevated x2, will continue to trend ?? May be due to cardio renal syndrome -CXR shows Cardiomegaly with mild increased vascularity and left effusion Continue antifailure medications, input output monitoring Cardiology follow --Non-ST elevation RI; type II In the setting of ESRD, continue supportive care Cardiology following --HTN -Monitor BP -Hold home meds for now -start Coreg 6.25 mg twice daily -IV antihypertensive when necessary -Pending recs from cardiology and kitchenhand --CKD stage V Nephrology initiated hemodialysis today -Right upper arm AV fistula placed 08/2019 -Follows Dr. Miles as outpatient -Creatinine 7.9 on admission -Avoid nephrotoxic agents -Monitor renal function Nephrology evaluation noted and appreciated Planning to initiate dialysis after cardiology clears Patient may need outpatient HD placement at discharge --Dyslipidemia /hyperlipidemia -Patient reports previously on statin was DC'd by kitchenhand due to concerns for worsening renal failure -Hold off on starting statin for now DVT and GI PPX -On heparin and Pepcid Advance Directives: No VTE prophylaxis?: Chemical, Mechanical Plan of care discussed with patient/family: Yes Closely monitor the patient and adjust the management as needed Plan of care reviewed with the patient , her nurse and the case identity access management architect recommendations noted History Interval history: I have seen and examined the patient at the bedside Patient's chart and medications reviewed Patient was admitted with chest pain, non-ST elevation RI Also has end-stage renal disease Evaluated by cardiology and nephrology Patient feels slightly better no new complaints Vital signs noted Hospitalist Physical - Constitutional Vitals: Temp Pulse Resp BP Pulse Ox 98.0 F 83 20 154/68 94 12/17/20 08:03 12/17/20 08:03 12/17/20 08:03 12/17/20 08:03 12/17/20 08:03 General appearance: Present: no acute distress, well-nourished - EENT Eyes: Present: PERRL, EOM intact - Neck Neck: Present: supple, normal ROM - Respiratory Respiratory effort: normal Respiratory: bilateral: diminished, rales, negative: rhonchi, wheezing - Cardiovascular Rhythm: regular Heart Sounds: Present: S1 & S2 - Extremities Extremities: no ischemia, No edema - Abdominal General gastrointestinal: soft, non-tender, non-distended, normal bowel sounds - Integumentary Integumentary: Present: clear, warm - Psychiatric Psychiatric: appropriate mood/affect, cooperative - Neurologic Neurologic: CNII-XII intact, moves all extremities HEART Score - HEART Score Troponin: Troponin T 0.546 ng/mL (0.00-0.029) H* 12/17/20 03:47 Results - Labs CBC & Chem 7: 12/18/20 04:45 12/18/20 04:45 Labs: Laboratory Last Values WBC 7.8 K/mm3 (4.5-11.0) 12/17/20 03:47 RBC 2.56 M/mm3 (3.65-5.03) L 12/17/20 03:47 Hgb 7.5 gm/dl (10.1-14.3) L 12/17/20 03:47 Hct 23.4 % (30.3-42.9) L 12/17/20 03:47 MCV 91 fl (79-97) 12/17/20 03:47 MCH 30 pg (28-32) 12/17/20 03:47 MCHC 32 % (30-34) 12/17/20 03:47 RDW 17.3 % (13.2-15.2) H 12/17/20 03:47 Plt Count 288 K/mm3 (140-440) 12/17/20 03:47 Lymph % (Auto) 8.4 % (13.4-35.0) L 12/17/20 03:47 Armstrong % (Auto) 6.1 % (0.0-7.3) 12/17/20 03:47 Eos % (Auto) 1.4 % (0.0-4.3) 12/17/20 03:47 Baso % (Auto) 0.6 % (0.0-1.8) 12/17/20 03:47 Lymph # (Auto) 0.7 K/mm3 (1.2-5.4) L 12/17/20 03:47 Armstrong # (Auto) 0.5 K/mm3 (0.0-0.8) 12/17/20 03:47 Eos # (Auto) 0.1 K/mm3 (0.0-0.4) 12/17/20 03:47 Baso # (Auto) 0.0 K/mm3 (0.0-0.1) 12/17/20 03:47 Seg Neutrophils % 83.5 % (40.0-70.0) H 12/17/20 03:47 Seg Neutrophils # 6.5 K/mm3 (1.8-7.7) 12/17/20 03:47 PT 13.5 Sec. (12.2-14.9) 12/16/20 21:41 INR 0.98 (0.87-1.13) 12/16/20 21:41 APTT 32.3 Sec. (24.2-36.6) 12/16/20 21:41 Sodium 135 mmol/L (137-145) L 12/17/20 03:47 Potassium 4.6 mmol/L (3.6-5.0) 12/17/20 03:47 Chloride 108.0 mmol/L (98-107) H 12/17/20 03:47 Carbon Dioxide 18 mmol/L (22-30) L 12/17/20 03:47 Anion Gap 14 mmol/L 12/17/20 03:47 BUN 53 mg/dL (7-17) H 12/17/20 03:47 Creatinine 8.2 mg/dL (0.6-1.2) H 12/17/20 03:47 Estimated GFR 6 ml/min 12/17/20 03:47 BUN/Creatinine Ratio 6 % 12/17/20 03:47 Glucose 123 mg/dL (65-100) H 12/17/20 03:47 Hemoglobin A1c 5.1 % (4-6) 12/17/20 00:23 Calcium 9.7 mg/dL (8.4-10.2) 12/17/20 03:47 Total Bilirubin 0.30 mg/dL (0.1-1.2) 12/16/20 21:29 AST 10 units/L (5-40) 12/16/20 21:29 ALT 7 units/L (7-56) 12/16/20 21:29 Alkaline Phosphatase 106 units/L (35-129) 12/16/20 21:29 Troponin T 0.546 ng/mL (0.00-0.029) H* 12/17/20 03:47 NT-Pro-B Natriuret Pep 26771 pg/mL (0-900) H 12/17/20 00:23 Total Protein 7.1 g/dL (6.3-8.2) 12/16/20 21:29 Albumin 3.9 g/dL (3.9-5) 12/16/20 21:29 Albumin/Globulin Ratio 1.2 % 12/16/20 21:29 Triglycerides 127 mg/dL (2-149) 12/16/20 21:29 Cholesterol 210 mg/dL (50-199) H 12/16/20 21:29 LDL Cholesterol Direct 150 mg/dL (50-130) H 12/16/20 21:29 HDL Cholesterol 44 mg/dL (40-59) 12/16/20 21: Cholesterol/HDL Ratio 4.77 % 12/16/20 21:29 Stone/IV: Voiding Method Toilet Active Medications - Current Medications Current Medications: Generic Name Dose Route Start Last Admin Trade Name Freq PRN Reason Stop Dose Admin Acetaminophen 650 mg 12/16/20 23:54 Acetaminophen 325 Mg Tab PO Q4H PRN Pain MILD(1-3)/Fever >100.5/GILMORE Albuterol 2.5 mg 12/16/20 23:54 Albuterol 2.5 Mg/3 Ml Nebu IH Q3HRT PRN Shortness Of Breath Carvedilol 6.25 mg 12/17/20 10:00 Carvedilol 6.25 Mg Tab PO BID [facility] Dextrose 50 ml 12/16/20 23:54 Dextrose 50% In Water (25gm) 50 Ml Syringe IV Q30MIN PRN Hypoglycemia Protocol Docusate Sodium 100 mg 12/17/20 10:00 Docusate Sodium 100 Mg Cap PO BID [facility] Famotidine 10 mg 12/17/20 10:00 Famotidine 10 Mg Tab PO BID CHRISTIANE Furosemide 80 mg 12/17/20 10:00 Furosemide 40 Mg/4 Ml Inj IV 12/17/20 13:00 ONCE CHRISTIANE Heparin Sodium (Porcine) 5,000 unit 12/17/20 10:00 Heparin 5,000 Unit/1 Ml Vial SUB-Q BID CHRISTIANE Nitroglycerin 0.4 mg 12/16/20 23:54 Nitroglycerin 0.4 Mg Tab Subl SL .Q5MIN PRN Chest Pain Ondansetron HCl 4 mg 12/16/20 23:54 Ondansetron 4 Mg/2 Ml Inj IV Q6H PRN Nausea And Vomiting Sodium Chloride 10 ml 12/17/20 10:00 Sodium Chloride 0.9% 10 Ml Flush Syringe IV BID CHRISTIANE Sodium Chloride 10 ml 12/16/20 23:54 Sodium Chloride 0.9% 10 Ml Flush Syringe IV PRN PRN LINE FLUSH
[2020-12-17] MEDS: carvediloL 6.25 MG TAB PO SCH ×2 (13:13→22:23)
[2020-12-17] MEDS: DOCUSATE SODIUM 100 MG CAP PO SCH ×2 (13:15→22:21)
[2020-12-17] MEDS: HEPARIN 5,000 UNIT/1 ML VIAL SUB-Q SCH ×2 (13:15→22:22)
[2020-12-17] MEDS: FAMOTIDINE 10 MG TAB PO SCH ×2 (13:16→22:22)
--- NOTE | 2020-12-17 14:20 | Electrocardiograph Report ---
[facility] Test Date: 2020-12-16 Test Time: 20:58:27 Pat Name: ELOY PAN Department: Room: A467 1 Gender: F Technical Writing Lead/Mgr: WINSOME : 1950 Requested By: BLAIRE AUGUSTE Order Number: [id number] Reading MD: Cheri De Souza Measurements Intervals [place] Rate: 85 P: -10 AK: 218 QRS: -17 QRSD: 92 T: 89 QT: 387 QTc: 460 Interpretive Statements Sinus rhythm Borderline prolonged AK interval LVH with secondary repolarization abnormality No previous ECG available for comparison Electronically Signed On 12-17-2020 14:19:51 EDT by Cheri De Souza
--- NOTE | 2020-12-17 14:21 | Electrocardiograph Report ---
[facility] Test Date: 2020-12-17 Test Time: 00:18:43 Pat Name: ELOY PAN Department: Room: A467 1 Gender: F Sales Support Technician: JENIFFER : 1950 Requested By: BLAIRE AUGUSTE Order Number: [id number] Reading MD: Cheri De Souza Measurements Intervals [place] Rate: 81 P: 63 NM: 205 QRS: 7 QRSD: 95 T: 74 QT: 398 QTc: 461 Interpretive Statements Sinus rhythm Anteroseptal infarct, old Compared to ECG 12/16/2020 20:58:27 No significant change Electronically Signed On 12-17-2020 14:21:20 EDT by hCeri De Souza
[2020-12-17 16:23] LABS: Hepatitis B Surface Antigen Non-Reactive (Negative); Hepatitis C Virus Antibody Non-Reactive (NonReactive)
[2020-12-17] MEDS ORDERED: ZOLPIDEM 5 MG TAB PO PRN (22:09)
[2020-12-17] MEDS: ACETAMINOPHEN 325 MG TAB PO PRN (22:22)
[2020-12-18 05:32] LABS: Basophils % (Auto) 0.6 % (0.0-1.8); Eosinophils # (Auto) 0.1 K/mm3 (0.0-0.4); Eosinophils % (Auto) 2.3 % (0.0-4.3); Hematocrit 22.6 % (30.3-42.9); Hemoglobin 7.4 gm/dl (10.1-14.3); Lymphocytes # (Auto) 0.8 K/mm3 (1.2-5.4); Lymphocytes % (Auto) 13.3 % (13.4-35.0); Mean Corpuscular HGB Conc 33 % (30-34); Mean Corpuscular Volume 92 fl (79-97); Monocytes # (Auto) 0.5 K/mm3 (0.0-0.8); Monocytes % (Auto) 8.8 % (0.0-7.3); Platelet Count 257 K/mm3 (140-440); Red Blood Count 2.46 M/mm3 (3.65-5.03); Red Cell Distribution Width 18.1 % (13.2-15.2)
[2020-12-18 05:51] LABS: % Iron Saturation 29.47 %; Calcium 9.8 mg/dL (8.4-10.2)
[2020-12-18] MEDS ORDERED: SODIUM CHLORIDE 0.9% 100 ML IV PRN (09:34)
[2020-12-18] MEDS: DOCUSATE SODIUM 100 MG CAP PO SCH ×2 (10:30→21:48)
[2020-12-18] MEDS: carvediloL 6.25 MG TAB PO SCH ×2 (10:30→21:48)
[2020-12-18] MEDS: HEPARIN 5,000 UNIT/1 ML VIAL SUB-Q SCH ×2 (10:30→21:48)
[2020-12-18] MEDS: ASPIRIN 81 MG TAB CHEW PO SCH (10:30)
[2020-12-18] MEDS: FAMOTIDINE 10 MG TAB PO SCH ×2 (10:30→21:48)
--- NOTE | 2020-12-18 11:43 | Progress Note ---
Assessment and Plan Assessment and plan: Acute CHF (new onset) with preserved LV function Continue antifailure medications Input output monitoring Low-sodium diet fluid restriction Echocardiogram normal LV function -CXR shows Cardiomegaly with mild increased vascularity and left effusion --Non-ST elevation ND; type II In the setting of ESRD, continue supportive care Cardiology following Cardiology evaluation noted and appreciated Considering heart cath on 12/21/2020 --Hypertension; moderate control Continue current antihypertensives and as needed medications -IV hydralazine when necessary Cardiology nephrology following --CKD stage V -Continues to make urine -Right upper arm AV fistula placed 08/2019 Nephrology evaluation noted and appreciated Initiating hemodialysis today Patient may need outpatient HD placement at discharge --Dyslipidemia; low-cholesterol diet --DVT prophylaxis; Heparin renal dose --GI prophylaxis Pepcid Advance Directives: No VTE prophylaxis?: Chemical, Mechanical Plan of care discussed with patient/family: Yes Closely monitor the patient and adjust the management as needed Plan of care reviewed with the patient , her nurse and the case product management internship recommendations noted 70-year-old female patient with chronic kidney disease with AV graft complaints however did not receive any dialysis Nephrology evaluated the patient want to initiate hemodialysis today, cardiology recommended left heart catheterization on 12/21/2020 12/18/2020; Hemodialysis today per nephrology Cardiology schedule for heart cath on 12/21/2020 History Interval history: I have seen and examined the patient at the bedside Patient's chart and medications reviewed Patient still feels slightly better No new complaints Vital signs noted Hospitalist Physical - Constitutional Vitals: Temp Pulse Resp BP Pulse Ox 98.0 F 75 20 140/60 97 12/18/20 07:44 12/18/20 07:44 12/18/20 07:44 12/18/20 07:44 12/18/20 07:44 General appearance: Present: no acute distress, well-nourished - EENT Eyes: Present: PERRL, EOM intact - Neck Neck: Present: supple, normal ROM - Respiratory Respiratory effort: normal Respiratory: bilateral: diminished, negative: rales, rhonchi, wheezing - Cardiovascular Rhythm: regular Heart Sounds: Present: S1 & S2 - Extremities Extremities: no ischemia, No edema - Abdominal General gastrointestinal: soft, non-tender, non-distended, normal bowel sounds - Integumentary Integumentary: Present: clear, warm, jaundice - Psychiatric Psychiatric: appropriate mood/affect, cooperative - Neurologic Neurologic: CNII-XII intact, moves all extremities HEART Score - HEART Score Troponin: Troponin T 0.546 ng/mL (0.00-0.029) H* 12/17/20 03:47 Results - Labs CBC & Chem 7: 12/18/20 04:45 12/18/20 04:45 Labs: Laboratory Last Values WBC 5.8 K/mm3 (4.5-11.0) 12/18/20 04:45 RBC 2.46 M/mm3 (3.65-5.03) L 12/18/20 04:45 Hgb 7.4 gm/dl (10.1-14.3) L 12/18/20 04:45 Hct 22.6 % (30.3-42.9) L 12/18/20 04:45 MCV 92 fl (79-97) 12/18/20 04:45 MCH 30 pg (28-32) 12/18/20 04:45 MCHC 33 % (30-34) 12/18/20 04:45 RDW 18.1 % (13.2-15.2) H 12/18/20 04:45 Plt Count 257 K/mm3 (140-440) 12/18/20 04:45 Lymph % (Auto) 13.3 % (13.4-35.0) L 12/18/20 04:45 Craig % (Auto) 8.8 % (0.0-7.3) H 12/18/20 04:45 Eos % (Auto) 2.3 % (0.0-4.3) 12/18/20 04:45 Baso % (Auto) 0.6 % (0.0-1.8) 12/18/20 04:45 Lymph # (Auto) 0.8 K/mm3 (1.2-5.4) L 12/18/20 04:45 Craig # (Auto) 0.5 K/mm3 (0.0-0.8) 12/18/20 04:45 Eos # (Auto) 0.1 K/mm3 (0.0-0.4) 12/18/20 04:45 Baso # (Auto) 0.0 K/mm3 (0.0-0.1) 12/18/20 04:45 Seg Neutrophils % 75.0 % (40.0-70.0) H 12/18/20 04:45 Seg Neutrophils # 4.4 K/mm3 (1.8-7.7) 12/18/20 04:45 PT 13.5 Sec. (12.2-14.9) 12/16/20 21:41 INR 0.98 (0.87-1.13) 12/16/20 21:41 APTT 32.3 Sec. (24.2-36.6) 12/16/20 21:41 Sodium 140 mmol/L (137-145) 12/18/20 04:45 Potassium 5.0 mmol/L (3.6-5.0) 12/18/20 04:45 Chloride 108.5 mmol/L (98-107) H 12/18/20 04:45 Carbon Dioxide 16 mmol/L (22-30) L 12/18/20 04:45 Anion Gap 21 mmol/L 12/18/20 04:45 BUN 60 mg/dL (7-17) H 12/18/20 04:45 Creatinine 8.6 mg/dL (0.6-1.2) H 12/18/20 04:45 Estimated GFR 6 ml/min 12/18/20 04:45 BUN/Creatinine Ratio 7 % 12/18/20 04:45 Glucose 90 mg/dL (65-100) 12/18/20 04:45 Hemoglobin A1c 5.1 % (4-6) 12/17/20 00:23 Calcium 9.8 mg/dL (8.4-10.2) 12/18/20 04:45 Iron 56 ug/dL (37-170) 12/18/20 04:45 TIBC 190 mcg/dL (250-450) L 12/18/20 04:45 % Saturation 29.47 % 12/18/20 04:45 Transferrin 147 mg/dl (192-382) L 12/18/20 04:45 Ferritin 1036.0 ng/mL (10.0-200.0) H 12/18/20 04:45 Total Bilirubin 0.30 mg/dL (0.1-1.2) 12/16/20 21:29 AST 10 units/L (5-40) 12/16/20 21:29 ALT 7 units/L (7-56) 12/16/20 21:29 Alkaline Phosphatase 106 units/L (35-129) 12/16/20 21:29 Troponin T 0.546 ng/mL (0.00-0.029) H* 12/17/20 03:47 NT-Pro-B Natriuret Pep 58106 pg/mL (0-900) H 12/17/20 00:23 Total Protein 7.1 g/dL (6.3-8.2) 12/16/20 21: Albumin 3.9 g/dL (3.9-5) 12/16/20 21: Albumin/Globulin Ratio 1.2 % 12/16/20 21: Triglycerides 127 mg/dL (2-149) 12/16/20 21: Cholesterol 210 mg/dL (50-199) H 12/16/20 21: LDL Cholesterol Direct 150 mg/dL (50-130) H 12/16/20 21: HDL Cholesterol 44 mg/dL (40-59) 12/16/20 21: Cholesterol/HDL Ratio 4.77 % 12/16/20 21:29 Hepatitis A IgM Ab Non-reactive (NonReactive) 12/17/20 14:52 Hep Bs Antigen Non-reactive (Negative) 12/17/20 14:52 Hep B Core IgM Ab Non-reactive (NonReactive) 12/17/20 14:52 Hepatitis C Antibody Non-reactive (NonReactive) 12/17/20 14:52 Stone/IV: Voiding Method Toilet Active Medications - Current Medications Current Medications: Generic Name Dose Route Start Last Admin Trade Name Freq PRN Reason Stop Dose Admin Acetaminophen 650 mg 12/16/20 23:54 12/17/20 22:22 Acetaminophen 325 Mg Tab PO 650 mg Q4H PRN Administration Pain MILD(1-3)/Fever >100.5/GILMORE Albuterol 2.5 mg 12/16/20 23:54 Albuterol 2.5 Mg/3 Ml Nebu IH Q3HRT PRN Shortness Of Breath Alprazolam 0.25 mg 12/18/20 08:00 Alprazolam 0.25 Mg Tab PO Q8H PRN Anxiety Aspirin 81 mg 12/18/20 10:00 12/18/20 10:30 Aspirin 81 Mg Tab Chew PO 81 mg QDAY CHRISTIANE Administration Carvedilol 6.25 mg 12/17/20 10:00 12/18/20 10:30 Carvedilol 6.25 Mg Tab PO 6.25 mg BID CHRISTIANE Administration Dextrose 50 ml 12/16/20 23:54 Dextrose 50% In Water (25gm) 50 Ml Syringe IV Q30MIN PRN Hypoglycemia Protocol Docusate Sodium 100 mg 12/17/20 10:00 12/18/20 10:30 Docusate Sodium 100 Mg Cap PO 100 mg BID CHRISTIANE Administration Famotidine 10 mg 12/17/20 10:00 12/18/20 10:30 Famotidine 10 Mg Tab PO 10 mg BID CHRISTIANE Administration Heparin Sodium (Porcine) 5,000 unit 12/17/20 10:00 12/18/20 10:30 Heparin 5,000 Unit/1 Ml Vial SUB-Q 5,000 unit BID CHRISTIANE Administration Sodium Chloride 100 mls @ 999 mls/hr 12/18/20 09:34 Nacl 0.9% IV BINDU PRN Hypotension Nitroglycerin 0.4 mg 12/16/20 23:54 Nitroglycerin 0.4 Mg Tab Subl SL .Q5MIN PRN Chest Pain Ondansetron HCl 4 mg 12/16/20 23:54 Ondansetron 4 Mg/2 Ml Inj IV Q6H PRN Nausea And Vomiting Sodium Chloride 10 ml 12/17/20 10:00 12/18/20 10:33 Sodium Chloride 0.9% 10 Ml Flush Syringe IV 10 ml BID CHRISTIANE Administration Sodium Chloride 10 ml 12/16/20 23:54 Sodium Chloride 0.9% 10 Ml Flush Syringe IV PRN PRN LINE FLUSH Zolpidem Tartrate 5 mg 12/17/20 22:09 Zolpidem 5 Mg Tab PO QHS PRN Sleep
[2020-12-18] MEDS: ONDANSETRON 4 MG/2 ML INJ IV PRN ×3 (13:40→23:37)
[2020-12-18] MEDS: ALPRAZolam 0.25 MG TAB PO PRN ×2 (14:40→23:37)
--- NOTE | 2020-12-18 15:40 | Progress Note ---
Assessment and Plan Impression: * End stage renal disease, new * Uremia * Severe aortic stenosis * Pulmonary edema * Elevated troponin * Metabolic acidosis * Anemia secondary to ESRD * Hypertension Plan: * Hemodialysis today - 1st treatment * Will plan for hemodialysis tomorrow * Judicious UF * Cardiology recommendations reviewed - [facility] planned for Monday * Epogen TIW prn * Renal/HD diet * Case mgmt consulted for outpatient HD clinic placement * AM labs Subjective Date of service: 12/18/20 Interval history: Patient has no complaints today Objective - Vital Signs Vital signs: Vital Signs - 12hr 12/18/20 12/18/20 12/18/20 05:07 07:44 11:11 Temperature 98.0 F 97.7 F Pulse Rate 74 75 78 Respiratory 20 20 Rate Blood Pressure 140/60 149/72 O2 Sat by Pulse 97 98 Oximetry - General Appearance General appearance: well-developed, well-nourished EENT: ATNC Respiratory: Present: Clear to Ascultation Cardiology: regular, S1S2, systolic murmur Gastrointestinal: normal, no tenderness, no distended Integumentary: no rash, warm and dry Neurologic: no focal deficit, alert and oriented x3 Psychiatric: cooperative - Lab 12/18/20 04:45 12/18/20 04:45 Most recent lab results Calcium 9.8 mg/dL (8.4-10.2) 12/18/20 04:45 Medications & Allergies - Medications Allergies/Adverse Reactions: Allergies ampicillin Allergy (Verified 03/27/19 13:04) Vomiting stomach cramps lisinopril Allergy (Verified 03/27/19 13:04) Swelling Home Medications: Home Medications Medication Instructions Recorded Confirmed Last Taken Type amLODIPine 10 mg PO DAILY 01/01/19 12/17/20 08/30/19 06:10 History cloNIDine [Catapres] 0.2 mg PO BID 01/01/19 12/17/20 08/30/19 06:10 History raNITIdine HCL [Heartburn Relief] 75 mg PO DAILY 01/01/19 12/17/20 1 Week Ago History ~08/23/19 Aranesp 1 ampul INHALATION Q4W PRN 08/30/19 12/17/20 08/12/19 History Cinacalcet HCl 30 mg PO DAILY 08/30/19 12/17/20 08/28/19 History oxyCODONE /ACETAMINOPHEN [Percocet 1 tab PO Q6HR PRN #24 tablet 08/30/19 12/17/20 Unknown Rx 5/325 mg] Active Medications: Generic Name Dose Route Start Last Admin Trade Name Freq PRN Reason Stop Dose Admin Acetaminophen 650 mg 12/16/20 23:54 12/17/20 22:22 Acetaminophen 325 Mg Tab PO 650 mg Q4H PRN Administration Pain MILD(1-3)/Fever >100.5/GILMORE Albuterol 2.5 mg 12/16/20 23:54 Albuterol 2.5 Mg/3 Ml Nebu IH Q3HRT PRN Shortness Of Breath Alprazolam 0.25 mg 12/18/20 08:00 12/18/20 14:40 Alprazolam 0.25 Mg Tab PO 0.25 mg Q8H PRN Administration Anxiety Aspirin 81 mg 12/18/20 10:00 12/18/20 10:30 Aspirin 81 Mg Tab Chew PO 81 mg QDAY CHRISTIANE Administration Carvedilol 6.25 mg 12/17/20 10:00 12/18/20 10:30 Carvedilol 6.25 Mg Tab PO 6.25 mg BID CHRISTIANE Administration Dextrose 50 ml 12/16/20 23:54 Dextrose 50% In Water (25gm) 50 Ml Syringe IV Q30MIN PRN Hypoglycemia Protocol Docusate Sodium 100 mg 12/17/20 10:00 12/18/20 10:30 Docusate Sodium 100 Mg Cap PO 100 mg BID CHRISTIANE Administration Famotidine 10 mg 12/17/20 10:00 12/18/20 10:30 Famotidine 10 Mg Tab PO 10 mg BID CHRISTIANE Administration Heparin Sodium (Porcine) 5,000 unit 12/17/20 10:00 12/18/20 10:30 Heparin 5,000 Unit/1 Ml Vial SUB-Q 5,000 unit BID CHRISTIANE Administration Sodium Chloride 100 mls @ 999 mls/hr 12/18/20 09:34 Nacl 0.9% IV BINDU PRN Hypotension Nitroglycerin 0.4 mg 12/16/20 23:54 Nitroglycerin 0.4 Mg Tab Subl SL .Q5MIN PRN Chest Pain Ondansetron HCl 4 mg 12/16/20 23:54 12/18/20 13:40 Ondansetron 4 Mg/2 Ml Inj IV 4 mg Q6H PRN Administration Nausea And Vomiting Sodium Chloride 10 ml 12/17/20 10:00 12/18/20 10:33 Sodium Chloride 0.9% 10 Ml Flush Syringe IV 10 ml BID CHRISTIANE Administration Sodium Chloride 10 ml 12/16/20 23:54 Sodium Chloride 0.9% 10 Ml Flush Syringe IV PRN PRN LINE FLUSH Zolpidem Tartrate 5 mg 12/17/20 22:09 Zolpidem 5 Mg Tab PO QHS PRN Sleep
--- NOTE | 2020-12-18 17:00 | Progress Note ---
Assessment and Plan Volume optimization via HD. Plan for LHC on Monday AM if clinically stable. Likely plan for eventual transfer to [facility] for intervention of aortic valve depending on clinical course. Pt is agreeable. Continue bASA and BB. Statin on hold per Nephro. Pt seen in conjunction with Dr. Twyla Mcgraw, who agrees with the assessment and plan of care. - Patient Problems (1) ESRD needing dialysis Current Visit: Yes Status: Acute (2) Anemia Current Visit: Yes Status: Acute (3) Pre-syncope Current Visit: Yes Status: Acute (4) Severe aortic stenosis Current Visit: Yes Status: Acute (5) Pulmonary HTN Current Visit: Yes Status: Chronic (6) Hypertension Current Visit: Yes Status: Chronic Qualifiers: Hypertension type: essential hypertension Qualified Code(s): I10 - Essential (primary) hypertension (7) HLD (hyperlipidemia) Current Visit: Yes Status: Chronic Qualifiers: Hyperlipidemia type: mixed hyperlipidemia Qualified Code(s): E78.2 - Mixed hyperlipidemia (8) NSTEMI (non-ST elevated myocardial infarction) Current Visit: Yes Status: Acute Plan to address problem: Type 2 Subjective Date of service: 12/18/20 Principal diagnosis: ESRD/HD, Severe Interval history: C/o nausea this AM. Awaiting HD. Still SOB. No new cardiac complaints. Tele reviewed - SR 80s, no events overnight. Objective Last Vital Signs Temp 97.7 F 12/18/20 11:11 Pulse 78 12/18/20 11:11 Resp 20 12/18/20 11:11 BP 149/72 12/18/20 11:11 Pulse Ox 98 12/18/20 11:11 - Physical Examination General: No Apparent Distress HEENT: Positive: EOMI, Normocephaly, Mucus Membranes Moist Neck: Positive: neck supple, trachea midline Cardiac: Positive: Reg Rate and Rhythm, S1/S2, Audible Murmur (2/6 MEHRAN) Lungs: Positive: Rales (bibasilar) Neuro: Positive: Grossly Intact Abdomen: Positive: Soft. Negative: Tender Skin: Negative: Rash Musculoskeletal: No Pain Extremities: Present: lower extr. pulses, edema (trace BLE), warm - Labs and Meds CBC 12/18/20 Range/Units 04:45 WBC 5.8 (4.5-11.0) K/mm3 RBC 2.46 L (3.65-5.03) M/mm3 Hgb 7.4 L (10.1-14.3) gm/dl Hct 22.6 L (30.3-42.9) % Plt Count 257 (140-440) K/mm3 Lymph # (Auto) 0.8 L (1.2-5.4) K/mm3 [place] # (Auto) 0.5 (0.0-0.8) K/mm3 Eos # (Auto) 0.1 (0.0-0.4) K/mm3 Baso # (Auto) 0.0 (0.0-0.1) K/mm3 Comprehensive Metabolic Panel 12/18/20 Range/Units 04:45 Sodium 140 (137-145) mmol/L Potassium 5.0 (3.6-5.0) mmol/L Chloride 108.5 H (98-107) mmol/L Carbon Dioxide 16 L (22-30) mmol/L BUN 60 H (7-17) mg/dL Creatinine 8.6 H (0.6-1.2) mg/dL Glucose 90 (65-100) mg/dL Calcium 9.8 (8.4-10.2) mg/dL - Imaging and Cardiology EKG: report reviewed, image reviewed Echo: report reviewed (12/17/2020 - mild LVH, EF 50-55%, impaired LV relaxation, severe w/max gradient 56.44mmHg, LA mod dilated, mild-mod MR, mod pulm HTN w/RVSP 64mmHg, mild TR) Cardiac cath: pending - Telemetry EKG Rhythm: Sinus Rhythm - EKG Sinus rhythms and dysrhythmias: sinus rhythm Myocardial infarction: septal IA (old age or ind, anterior IA (old age or i
--- NOTE | 2020-12-18 18:13 | Electrocardiograph Report ---
[facility] Test Date: 2020-12-18 Test Time: 07:04:02 Pat Name: ELOY PAN Department: Room: A467 1 Gender: F Developmental Mathematics Instructor: HERMANN : 1950 Requested By: DENICE BAUMAN Order Number: [id number] Reading MD: Cheri De Souza Measurements Intervals [place] Rate: 81 P: 79 CT: 244 QRS: -2 QRSD: 98 T: 104 QT: 411 QTc: 478 Interpretive Statements Sinus rhythm Prolonged CT interval Probable left ventricular hypertrophy Nonspecific T abnormalities, lateral leads Compared to ECG 12/17/2020 00:18:43 No significant change Electronically Signed On 12-18-2020 18:13:06 EDT by Cheri De Souza
[2020-12-19 05:21] LABS: Basophils % (Auto) 0.4 % (0.0-1.8); Eosinophils # (Auto) 0.1 K/mm3 (0.0-0.4); Eosinophils % (Auto) 1.8 % (0.0-4.3); Hematocrit 23.5 % (30.3-42.9); Hemoglobin 7.7 gm/dl (10.1-14.3); Lymphocytes # (Auto) 0.7 K/mm3 (1.2-5.4); Lymphocytes % (Auto) 8.6 % (13.4-35.0); Mean Corpuscular HGB Conc 33 % (30-34); Mean Corpuscular Volume 91 fl (79-97); Monocytes # (Auto) 0.6 K/mm3 (0.0-0.8); Monocytes % (Auto) 7.8 % (0.0-7.3); Platelet Count 258 K/mm3 (140-440); Red Blood Count 2.58 M/mm3 (3.65-5.03); Red Cell Distribution Width 17.6 % (13.2-15.2)
[2020-12-19 05:35] LABS: Calcium 9.3 mg/dL (8.4-10.2)
[2020-12-19] MEDS: HEPARIN 5,000 UNIT/1 ML VIAL SUB-Q SCH ×2 (09:30→21:42)
[2020-12-19] MEDS: DOCUSATE SODIUM 100 MG CAP PO SCH ×2 (09:31→20:25)
[2020-12-19] MEDS: carvediloL 6.25 MG TAB PO SCH ×2 (09:31→21:42)
[2020-12-19] MEDS: FAMOTIDINE 10 MG TAB PO SCH ×2 (09:31→21:42)
[2020-12-19] MEDS: ASPIRIN 81 MG TAB CHEW PO SCH (09:31)
[2020-12-19] MEDS: ALPRAZolam 0.25 MG TAB PO PRN (09:31)
[2020-12-19] MEDS ORDERED: SODIUM CHLORIDE 0.9% 100 ML IV PRN (09:57)
--- NOTE | 2020-12-19 11:24 | Progress Note ---
Assessment and Plan Pt doing well now. HD initiated yesterday and pt tolerated well. stable cv status [facility] planned for monday morning due to severe as on tte - Patient Problems (1) CHF (congestive heart failure) Current Visit: Yes Status: Acute Qualifiers: Heart failure type: unspecified Heart failure chronicity: unspecified Qualified Code(s): I50.9 - Heart failure, unspecified (2) CKD (chronic kidney disease) Current Visit: Yes Status: Acute Qualifiers: Chronic kidney disease stage: stage 5, not on chronic dialysis Qualified Code(s): N18.5 - Chronic kidney disease, stage 5 (3) ESRD needing dialysis Current Visit: Yes Status: Acute (4) Elevated troponin I level Current Visit: Yes Status: Acute (5) Severe aortic stenosis Current Visit: Yes Status: Acute (6) HLD (hyperlipidemia) Current Visit: Yes Status: Chronic Qualifiers: Hyperlipidemia type: mixed hyperlipidemia Qualified Code(s): E78.2 - Mixed hyperlipidemia (7) Pulmonary HTN Current Visit: Yes Status: Chronic Subjective Date of service: 12/19/20 Principal diagnosis: ESRD/HD, Severe Interval history: no complaints overnight Objective Vital Signs Temp Pulse Resp BP BP Pulse Ox 12/19/20 08:30 90 12/19/20 07:51 90 18 144/72 94 12/19/20 04:53 98.4 F 77 18 147/62 82 L 12/18/20 23:21 98.0 F 75 18 129/58 84 12/18/20 21:00 98.6 F 80 18 143/71 12/18/20 20:54 74 12/18/20 20:30 76 126/71 12/18/20 20:15 76 131/66 12/18/20 20:00 77 143/74 12/18/20 19:52 98.6 F 68 18 148/68 95 12/18/20 19:45 76 151/76 12/18/20 19:30 74 141/74 12/18/20 19:15 72 156/72 12/18/20 19:00 74 154/78 12/18/20 18:45 74 156/75 12/18/20 18:30 75 145/71 12/18/20 18:25 98.0 F 75 20 150/74 12/18/20 15:09 98.0 F 72 18 150/67 90 - Physical Examination General: No Apparent Distress HEENT: Positive: EOMI, Normocephaly, Mucus Membranes Moist Neck: Positive: neck supple, trachea midline Neuro: Positive: Grossly Intact Abdomen: Positive: Soft. Negative: Tender Skin: Negative: Rash Musculoskeletal: No Pain Extremities: Present: lower extr. pulses, edema (trace BLE), warm - Labs and Meds CBC 12/19/20 Range/Units 04:37 WBC 7.7 (4.5-11.0) K/mm3 RBC 2.58 L (3.65-5.03) M/mm3 Hgb 7.7 L (10.1-14.3) gm/dl Hct 23.5 L (30.3-42.9) % Plt Count 258 (140-440) K/mm3 Lymph # (Auto) 0.7 L (1.2-5.4) K/mm3 [place] # (Auto) 0.6 (0.0-0.8) K/mm3 Eos # (Auto) 0.1 (0.0-0.4) K/mm3 Baso # (Auto) 0.0 (0.0-0.1) K/mm3 Comprehensive Metabolic Panel 12/19/20 Range/Units 04:37 Sodium 138 (137-145) mmol/L Potassium 4.7 (3.6-5.0) mmol/L Chloride 103.1 (98-107) mmol/L Carbon Dioxide 24 D (22-30) mmol/L BUN 39 H (7-17) mg/dL Creatinine 6.6 H (0.6-1.2) mg/dL Glucose 90 (65-100) mg/dL Calcium 9.3 (8.4-10.2) mg/dL - Imaging and Cardiology EKG: report reviewed, image reviewed Echo: report reviewed (12/17/2020 - mild LVH, EF 50-55%, impaired LV relaxation, severe w/max gradient 56.44mmHg, LA mod dilated, mild-mod MR, mod pulm HTN w/RVSP 64mmHg, mild TR) Cardiac cath: pending - EKG Sinus rhythms and dysrhythmias: sinus rhythm Myocardial infarction: septal NM (old age or ind, anterior NM (old age or i
--- NOTE | 2020-12-19 18:54 | Progress Note ---
Assessment and Plan Impression: * End stage renal disease, new * Uremia * Severe aortic stenosis * Pulmonary edema * Elevated troponin * Metabolic acidosis * Anemia secondary to ESRD * Hypertension Plan: * Hemodialysis today - 2nd treatment; avoid aggressive UF in light of * Hold HD tomorrow * Will plan for HD for additional fluid pre LHC and again on Monday * Cardiology recommendations reviewed - C planned for Monday * Epogen TIW prn * Renal/HD diet * Case mgmt consulted for outpatient HD clinic placement Subjective Date of service: 12/19/20 Principal diagnosis: ESRD/HD, Severe Interval history: Patient has no complaints today. She reports that breathing has improved after dialysis treatments. Objective - Vital Signs Vital signs: Vital Signs - 12hr 12/19/20 12/19/20 12/19/20 07:51 08:30 11:30 Temperature 98.4 F Pulse Rate 90 90 73 Respiratory 18 18 Rate Blood Pressure 144/72 128/54 Blood Pressure [Left] O2 Sat by Pulse 94 Oximetry 12/19/20 12/19/20 12/19/20 11:45 12:00 12:15 Temperature Pulse Rate 70 67 69 Respiratory Rate Blood Pressure 142/71 128/67 148/72 Blood Pressure [Left] O2 Sat by Pulse Oximetry 12/19/20 12/19/20 12/19/20 12:30 12:45 13:00 Temperature Pulse Rate 68 67 68 Respiratory Rate Blood Pressure 148/70 126/64 128/65 Blood Pressure [Left] O2 Sat by Pulse Oximetry 12/19/20 12/19/20 12/19/20 13:15 13:30 13:50 Temperature 98.0 F Pulse Rate 70 82 72 Respiratory 18 Rate Blood Pressure 126/71 130/68 134/67 Blood Pressure [Left] O2 Sat by Pulse Oximetry 12/19/20 16:39 Temperature 98.7 F Pulse Rate 78 Respiratory 18 Rate Blood Pressure Blood Pressure 112/54 [Left] O2 Sat by Pulse 94 Oximetry - General Appearance General appearance: well-developed, well-nourished EENT: ATNC Respiratory: Present: Clear to Ascultation Cardiology: regular, S1S2 Gastrointestinal: normal, no tenderness, no distended Integumentary: no rash, warm and dry Neurologic: no focal deficit, alert and oriented x3 Psychiatric: cooperative - Lab 12/19/20 04:37 12/19/20 04:37 Most recent lab results Calcium 9.3 mg/dL (8.4-10.2) 12/19/20 04:37 Medications & Allergies - Medications Allergies/Adverse Reactions: Allergies ampicillin Allergy (Verified 03/27/19 13:04) Vomiting stomach cramps lisinopril Allergy (Verified 03/27/19 13:04) Swelling Home Medications: Home Medications Medication Instructions Recorded Confirmed Last Taken Type amLODIPine 10 mg PO DAILY 01/01/19 12/17/20 08/30/19 06:10 History cloNIDine [Catapres] 0.2 mg PO BID 01/01/19 12/17/20 08/30/19 06:10 History raNITIdine HCL [Heartburn Relief] 75 mg PO DAILY 01/01/19 12/17/20 1 Week Ago History ~08/23/19 Aranesp 1 ampul INHALATION Q4W PRN 08/30/19 12/17/20 08/12/19 History Cinacalcet HCl 30 mg PO DAILY 08/30/19 12/17/20 08/28/19 History oxyCODONE /ACETAMINOPHEN [Percocet 1 tab PO Q6HR PRN #24 tablet 08/30/19 12/17/20 Unknown Rx 5/325 mg] Active Medications: Generic Name Dose Route Start Last Admin Trade Name Freq PRN Reason Stop Dose Admin Acetaminophen 650 mg 12/16/20 23:54 12/17/20 22:22 Acetaminophen 325 Mg Tab PO 650 mg Q4H PRN Administration Pain MILD(1-3)/Fever >100.5/GILMORE Albuterol 2.5 mg 12/16/20 23:54 Albuterol 2.5 Mg/3 Ml Nebu IH Q3HRT PRN Shortness Of Breath Alprazolam 0.25 mg 12/18/20 08:00 12/19/20 09:31 Alprazolam 0.25 Mg Tab PO 0.25 mg Q8H PRN Administration Anxiety Aspirin 81 mg 12/18/20 10:00 12/19/20 09:31 Aspirin 81 Mg Tab Chew PO 81 mg QDAY CHRISTIANE Administration Carvedilol 6.25 mg 12/17/20 10:00 12/19/20 09:31 Carvedilol 6.25 Mg Tab PO 6.25 mg BID CHRISTIANE Administration Dextrose 50 ml 06/23/21 23:54 Dextrose 50% In Water (25gm) 50 Ml Syringe IV Q30MIN PRN Hypoglycemia Protocol Docusate Sodium 100 mg 12/17/20 10:00 12/19/20 09:31 Docusate Sodium 100 Mg Cap PO 100 mg BID CHRISTIANE Administration Famotidine 10 mg 12/17/20 10:00 12/19/20 09:31 Famotidine 10 Mg Tab PO 10 mg BID CHRISTIANE Administration Heparin Sodium (Porcine) 5,000 unit 12/17/20 10:00 12/19/20 09:30 Heparin 5,000 Unit/1 Ml Vial SUB-Q 5,000 unit BID CHRISTIANE Administration Sodium Chloride 100 mls @ 999 mls/hr 12/18/20 09:34 Nacl 0.9% IV BINDU PRN Hypotension Sodium Chloride 100 mls @ 999 mls/hr 12/19/20 09:57 Nacl 0.9% IV BINDU PRN Hypotension Nitroglycerin 0.4 mg 12/16/20 23:54 Nitroglycerin 0.4 Mg Tab Subl SL .Q5MIN PRN Chest Pain Ondansetron HCl 4 mg 12/16/20 23:54 12/18/20 23:37 Ondansetron 4 Mg/2 Ml Inj IV 4 mg Q6H PRN Administration Nausea And Vomiting Sodium Chloride 10 ml 12/17/20 10:00 12/19/20 09:31 Sodium Chloride 0.9% 10 Ml Flush Syringe IV 10 ml BID CHRISTIANE Administration Sodium Chloride 10 ml 12/16/20 23:54 Sodium Chloride 0.9% 10 Ml Flush Syringe IV PRN PRN LINE FLUSH Zolpidem Tartrate 5 mg 12/17/20 22:09 Zolpidem 5 Mg Tab PO QHS PRN Sleep
[2020-12-19] MEDS: ONDANSETRON 4 MG/2 ML INJ IV PRN (21:42)
[2020-12-20 05:31] LABS: Basophils # (Auto) 0.1 K/mm3 (0.0-0.1); Basophils % (Auto) 0.7 % (0.0-1.8); Eosinophils # (Auto) 0.1 K/mm3 (0.0-0.4); Eosinophils % (Auto) 1.3 % (0.0-4.3); Hematocrit 23.8 % (30.3-42.9); Hemoglobin 7.7 gm/dl (10.1-14.3); Lymphocytes # (Auto) 0.9 K/mm3 (1.2-5.4); Lymphocytes % (Auto) 12.2 % (13.4-35.0); Mean Corpuscular HGB Conc 32 % (30-34); Mean Corpuscular Volume 91 fl (79-97); Monocytes # (Auto) 0.5 K/mm3 (0.0-0.8); Monocytes % (Auto) 7.3 % (0.0-7.3); Platelet Count 269 K/mm3 (140-440); Red Blood Count 2.61 M/mm3 (3.65-5.03); Red Cell Distribution Width 17.2 % (13.2-15.2)
[2020-12-20 05:48] LABS: Calcium 9.2 mg/dL (8.4-10.2)
--- NOTE | 2020-12-20 08:10 | Progress Note ---
Assessment and Plan Assessment and Plan Assessment and plan: Acute CHF (new onset) with preserved LV function Continue antifailure medications Input output monitoring Low-sodium diet fluid restriction Echocardiogram normal LV function -CXR shows Cardiomegaly with mild increased vascularity and left effusion --Non-ST elevation AK; type II In the setting of ESRD, continue supportive care Cardiology following Cardiology evaluation noted and appreciated Considering heart cath on 12/21/2020 --Hypertension; moderate control Continue current antihypertensives and as needed medications -IV hydralazine when necessary Cardiology nephrology following --CKD stage V -Continues to make urine -Right upper arm AV fistula placed 08/2019 Nephrology evaluation noted and appreciated Initiating hemodialysis today Patient may need outpatient HD placement at discharge --Dyslipidemia; low-cholesterol diet --DVT prophylaxis; Heparin renal dose --GI prophylaxis Pepcid Advance Directives: No VTE prophylaxis?: Chemical, Mechanical Plan of care discussed with patient/family: Yes Closely monitor the patient and adjust the management as needed Plan of care reviewed with the patient , her nurse and the case credit risk management director recommendations noted Subjective Date of service: 12/19/20 Principal diagnosis: ESRD/HD, Severe Interval history: 70-year-old female patient with chronic kidney disease with AV graft complaints however did not receive any dialysis Nephrology evaluated the patient want to initiate hemodialysis today, cardiology recommended left heart catheterization on 12/21/2020 12/18/2020; Hemodialysis today per nephrology Cardiology schedule for heart cath on 12/21/2020 12/19/20 For cardiac cath on 12/21/2020 Objective - Constitutional Vitals: Vital Signs - 12hr 12/19/20 12/19/20 12/19/20 20:28 21:42 23:05 Temperature 98.9 F Pulse Rate 94 H 81 79 Respiratory 18 Rate Blood Pressure 117/51 134/52 O2 Sat by Pulse 93 Oximetry 12/20/20 03:53 Temperature 98.2 F Pulse Rate 82 Respiratory 18 Rate Blood Pressure 140/61 O2 Sat by Pulse 92 Oximetry General appearance: Present: no acute distress, well-nourished - EENT Eyes: PERRL, EOM intact ENT: hearing intact, clear oral mucosa Ears: bilateral: normal - Neck Neck: supple, normal ROM - Respiratory Respiratory effort: normal Respiratory: bilateral: CTA - Breasts Breasts: normal - Cardiovascular Heart rate: 78 Rhythm: regular Heart Sounds: Present: S1 & S2. Absent: gallop, rub Extremities: pulses intact, No edema, normal color, Full ROM - Gastrointestinal General gastrointestinal: Present: soft, non-tender, non-distended, normal bowel sounds - Genitourinary Female genitourinary: normal - Integumentary Integumentary: clear, warm, dry - Musculoskeletal Musculoskeletal: 1, strength equal bilaterally - Neurologic Neurologic: moves all extremities - Psychiatric Psychiatric: memory intact, appropriate mood/affect, intact judgment & insight - Labs CBC & Chem 7: 12/22/20 05:11 12/22/20 05:11 Labs: Abnormal lab results 12/20/20 12/20/20 Range/Units 04:39 04:39 RBC 2.61 L (3.65-5.03) M/mm3 Hgb 7.7 L (10.1-14.3) gm/dl Hct 23.8 L (30.3-42.9) % RDW 17.2 H (13.2-15.2) % Lymph % (Auto) 12.2 L (13.4-35.0) % Lymph # (Auto) 0.9 L (1.2-5.4) K/mm3 Seg Neutrophils % 78.5 H (40.0-70.0) % BUN 32 H (7-17) mg/dL Creatinine 5.9 H (0.6-1.2) mg/dL Glucose 121 H (65-100) mg/dL HEART Score - HEART Score Troponin: Troponin T 0.546 ng/mL (0.00-0.029) H* 12/17/20 03:47
[2020-12-20] MEDS: ASPIRIN 81 MG TAB CHEW PO SCH (09:00)
[2020-12-20] MEDS: carvediloL 6.25 MG TAB PO SCH ×2 (09:01→22:43)
[2020-12-20] MEDS: DOCUSATE SODIUM 100 MG CAP PO SCH ×2 (09:01→22:43)
[2020-12-20] MEDS: HEPARIN 5,000 UNIT/1 ML VIAL SUB-Q SCH ×2 (09:01→22:43)
[2020-12-20] MEDS: FAMOTIDINE 10 MG TAB PO SCH ×2 (09:01→22:43)
--- NOTE | 2020-12-20 11:22 | Progress Note ---
Assessment and Plan Patient is clinically improved after her first 2 sessions of hemodialysis. Patient is found to have severe aortic stenosis on echocardiography. Also has what appears to be anemia of chronic disease. No evidence of active bleeding. Plan for left heart catheterization in a.m. Risks, benefits, and alternatives discussed with patient at length. She would like to proceed. - Patient Problems (1) CHF (congestive heart failure) Current Visit: Yes Status: Acute Qualifiers: Heart failure type: unspecified Heart failure chronicity: unspecified Qualified Code(s): I50.9 - Heart failure, unspecified (2) CKD (chronic kidney disease) Current Visit: Yes Status: Acute Qualifiers: Chronic kidney disease stage: stage 5, not on chronic dialysis Qualified Code(s): N18.5 - Chronic kidney disease, stage 5 (3) ESRD needing dialysis Current Visit: Yes Status: Acute (4) Elevated troponin I level Current Visit: Yes Status: Acute (5) Severe aortic stenosis Current Visit: Yes Status: Acute (6) HLD (hyperlipidemia) Current Visit: Yes Status: Chronic Qualifiers: Hyperlipidemia type: mixed hyperlipidemia Qualified Code(s): E78.2 - Mixed hyperlipidemia (7) Pulmonary HTN Current Visit: Yes Status: Chronic Subjective Principal diagnosis: ESRD/HD, Severe Interval history: no complaints overnight Objective Vital Signs Temp Pulse Resp BP BP Pulse Ox 12/20/20 09:34 76 12/20/20 09:01 82 140/61 12/20/20 03:53 98.2 F 82 18 140/61 92 12/19/20 23:05 98.9 F 79 18 134/52 93 12/19/20 21:42 81 117/51 12/19/20 20:28 94 H 12/19/20 19:44 98.4 F 81 19 117/51 92 12/19/20 16:39 98.7 F 78 18 112/54 94 12/19/20 13:50 98.0 F 72 18 134/67 12/19/20 13:30 82 130/68 12/19/20 13:15 70 126/71 12/19/20 13:00 68 128/65 12/19/20 12:45 67 126/64 12/19/20 12:30 68 148/70 12/19/20 12:15 69 148/72 12/19/20 12:00 67 128/67 12/19/20 11:45 70 142/71 12/19/20 11:30 98.4 F 73 18 128/54 - Physical Examination General: No Apparent Distress HEENT: Positive: EOMI, Normocephaly, Mucus Membranes Moist Neck: Positive: neck supple, trachea midline Neuro: Positive: Grossly Intact Abdomen: Positive: Soft. Negative: Tender Skin: Negative: Rash Musculoskeletal: No Pain Extremities: Present: lower extr. pulses, edema (trace BLE), warm - Labs and Meds CBC 12/20/20 Range/Units 04:39 WBC 7.4 (4.5-11.0) K/mm3 RBC 2.61 L (3.65-5.03) M/mm3 Hgb 7.7 L (10.1-14.3) gm/dl Hct 23.8 L (30.3-42.9) % Plt Count 269 (140-440) K/mm3 Lymph # (Auto) 0.9 L (1.2-5.4) K/mm3 [place] # (Auto) 0.5 (0.0-0.8) K/mm3 Eos # (Auto) 0.1 (0.0-0.4) K/mm3 Baso # (Auto) 0.1 (0.0-0.1) K/mm3 Comprehensive Metabolic Panel 12/20/20 Range/Units 04:39 Sodium 137 (137-145) mmol/L Potassium 4.2 (3.6-5.0) mmol/L Chloride 101.0 (98-107) mmol/L Carbon Dioxide 25 (22-30) mmol/L BUN 32 H (7-17) mg/dL Creatinine 5.9 H (0.6-1.2) mg/dL Glucose 121 H (65-100) mg/dL Calcium 9.2 (8.4-10.2) mg/dL - Imaging and Cardiology EKG: report reviewed, image reviewed Echo: report reviewed (12/17/2020 - mild LVH, EF 50-55%, impaired LV relaxation, severe w/max gradient 56.44mmHg, LA mod dilated, mild-mod MR, mod pulm HTN w/RVSP 64mmHg, mild TR) Cardiac cath: pending - EKG Sinus rhythms and dysrhythmias: sinus rhythm Myocardial infarction: septal SD (old age or ind, anterior SD (old age or i
--- NOTE | 2020-12-20 16:50 | Progress Note ---
Assessment and Plan Impression: * End stage renal disease, new * Uremia * Severe aortic stenosis * Pulmonary edema * Elevated troponin * Metabolic acidosis * Anemia secondary to ESRD * Hypertension Plan: * Patient is s/p HD on Monday and Monday. Volume status improved. She is able to lie flat w/o difficulty breathing. No longer requiring supplement oxygen * No acute indication for HD today * [facility] planned for tomorrow AM * Hemodialysis to follow - UF as tolerated * Epogen TIW prn * Renal/HD diet * Case mgmt consulted for outpatient HD clinic placement Subjective Date of service: 12/20/20 Principal diagnosis: ESRD/HD, Severe Interval history: Patient has no complaints today. She denies SOB. Objective - Vital Signs Vital signs: Vital Signs - 12hr 12/20/20 12/20/20 12/20/20 08:14 09:01 09:34 Temperature 98.0 F Pulse Rate 80 82 76 Respiratory 18 Rate Blood Pressure 133/59 140/61 O2 Sat by Pulse 98 Oximetry 12/20/20 12/20/20 11:44 15:49 Temperature 98.0 F 98.6 F Pulse Rate 75 75 Respiratory 16 20 Rate Blood Pressure 110/54 136/44 O2 Sat by Pulse 90 83 L Oximetry - General Appearance General appearance: well-developed, well-nourished EENT: ATNC Respiratory: Present: Clear to Ascultation Cardiology: regular, S1S2, systolic murmur Gastrointestinal: normal, no tenderness, no distended, obese Integumentary: no rash, warm and dry Neurologic: no focal deficit, alert and oriented x3 Musculoskeletal: other (no edema) Psychiatric: cooperative - Lab 12/20/20 04:39 12/20/20 04:39 Most recent lab results Calcium 9.2 mg/dL (8.4-10.2) 12/20/20 04:39 Medications & Allergies - Medications Allergies/Adverse Reactions: Allergies ampicillin Allergy (Verified 03/27/19 13:04) Vomiting stomach cramps lisinopril Allergy (Verified 03/27/19 13:04) Swelling Home Medications: Home Medications Medication Instructions Recorded Confirmed Last Taken Type amLODIPine 10 mg PO DAILY 01/01/19 12/17/20 08/30/19 06:10 History cloNIDine [Catapres] 0.2 mg PO BID 01/01/19 12/17/20 08/30/19 06:10 History raNITIdine HCL [Heartburn Relief] 75 mg PO DAILY 01/01/19 12/17/20 1 Week Ago History ~08/23/19 Aranesp 1 ampul INHALATION Q4W PRN 08/30/19 12/17/20 08/12/19 History Cinacalcet HCl 30 mg PO DAILY 08/30/19 12/17/20 08/28/19 History oxyCODONE /ACETAMINOPHEN [Percocet 1 tab PO Q6HR PRN #24 tablet 08/30/19 12/17/20 Unknown Rx 5/325 mg] Active Medications: Generic Name Dose Route Start Last Admin Trade Name Freq PRN Reason Stop Dose Admin Acetaminophen 650 mg 12/16/20 23:54 12/17/20 22:22 Acetaminophen 325 Mg Tab PO 650 mg Q4H PRN Administration Pain MILD(1-3)/Fever >100.5/GILMORE Albuterol 2.5 mg 12/16/20 23:54 Albuterol 2.5 Mg/3 Ml Nebu IH Q3HRT PRN Shortness Of Breath Alprazolam 0.25 mg 12/18/20 08:00 12/19/20 09:31 Alprazolam 0.25 Mg Tab PO 0.25 mg Q8H PRN Administration Anxiety Aspirin 81 mg 12/18/20 10:00 12/20/20 09:00 Aspirin 81 Mg Tab Chew PO 81 mg QDAY CHRISTIANE Administration Carvedilol 6.25 mg 12/17/20 10:00 12/20/20 09:01 Carvedilol 6.25 Mg Tab PO 6.25 mg BID CHRISTIANE Administration Dextrose 50 ml 12/16/20 23:54 Dextrose 50% In Water (25gm) 50 Ml Syringe IV Q30MIN PRN Hypoglycemia Protocol Docusate Sodium 100 mg 12/17/20 10:00 12/20/20 09:01 Docusate Sodium 100 Mg Cap PO 100 mg BID CHRISTIANE Administration Famotidine 10 mg 12/17/20 10:00 12/20/20 09:01 Famotidine 10 Mg Tab PO 10 mg BID CHRISTIANE Administration Heparin Sodium (Porcine) 5,000 unit 12/17/20 10:00 12/20/20 09:01 Heparin 5,000 Unit/1 Ml Vial SUB-Q 5,000 unit BID CHRISTIANE Administration Sodium Chloride 100 mls @ 999 mls/hr 12/18/20 09:34 Nacl 0.9% IV BINDU PRN Hypotension Sodium Chloride 100 mls @ 999 mls/hr 12/19/20 09:57 Nacl 0.9% IV BINDU PRN Hypotension Nitroglycerin 0.4 mg 12/16/20 23:54 Nitroglycerin 0.4 Mg Tab Subl SL .Q5MIN PRN Chest Pain Ondansetron HCl 4 mg 12/16/20 23:54 12/19/20 21:42 Ondansetron 4 Mg/2 Ml Inj IV 4 mg Q6H PRN Administration Nausea And Vomiting Sodium Chloride 10 ml 12/17/20 10:00 12/20/20 09:01 Sodium Chloride 0.9% 10 Ml Flush Syringe IV 10 ml BID CHRISTIANE Administration Sodium Chloride 10 ml 12/16/20 23:54 Sodium Chloride 0.9% 10 Ml Flush Syringe IV PRN PRN LINE FLUSH Zolpidem Tartrate 5 mg 12/17/20 22:09 Zolpidem 5 Mg Tab PO QHS PRN Sleep
[2020-12-20] MEDS ORDERED: SODIUM CHLORIDE 0.9% 100 ML IV PRN (17:32)
--- NOTE | 2020-12-21 02:55 | Progress Note ---
Assessment and Plan Assessment and Plan Assessment and plan: Acute CHF (new onset) with preserved LV function Continue antifailure medications Input output monitoring Low-sodium diet fluid restriction Echocardiogram normal LV function -CXR shows Cardiomegaly with mild increased vascularity and left effusion --Non-ST elevation [place]; type II In the setting of ESRD, continue supportive care Cardiology following Cardiology evaluation noted and appreciated Considering heart cath on 12/21/2020 --Hypertension; moderate control Continue current antihypertensives and as needed medications -IV hydralazine when necessary Cardiology nephrology following --CKD stage V -Continues to make urine -Right upper arm AV fistula placed 08/2019 Nephrology evaluation noted and appreciated Initiating hemodialysis today Patient may need outpatient HD placement at discharge --Dyslipidemia; low-cholesterol diet --DVT prophylaxis; Heparin renal dose --GI prophylaxis Pepcid Advance Directives: No VTE prophylaxis?: Chemical, Mechanical Plan of care discussed with patient/family: Yes Closely monitor the patient and adjust the management as needed Plan of care reviewed with the patient , her nurse and the case human resource management instructor recommendations noted Subjective Date of service: 12/20/20 Principal diagnosis: ESRD/HD, Severe Interval history: 70-year-old female patient with chronic kidney disease with AV graft complaints however did not receive any dialysis Nephrology evaluated the patient want to initiate hemodialysis today, cardiology recommended left heart catheterization on 12/21/2020 12/18/2020; Hemodialysis today per nephrology Cardiology schedule for heart cath on 12/21/2020 12/19/20 For cardiac cath on 12/21/2020 12/20/2020 For cardiac cath on Monday Objective - Constitutional Vitals: Vital Signs - 12hr 12/20/20 12/20/20 12/20/20 15:49 19:21 22:00 Temperature 98.6 F 97.9 F Pulse Rate 75 84 80 Respiratory 20 18 Rate Blood Pressure 136/44 129/50 O2 Sat by Pulse 83 L 84 Oximetry 12/20/20 12/20/20 22:43 23:01 Temperature 98.0 F Pulse Rate 84 87 Respiratory 19 Rate Blood Pressure 129/50 135/53 O2 Sat by Pulse 88 Oximetry General appearance: Present: no acute distress, well-nourished - EENT Eyes: PERRL, EOM intact ENT: hearing intact, clear oral mucosa Ears: bilateral: normal - Neck Neck: supple, normal ROM - Respiratory Respiratory effort: normal Respiratory: bilateral: CTA - Breasts Breasts: normal - Cardiovascular Heart rate: 78 Rhythm: regular Heart Sounds: Present: S1 & S2. Absent: gallop, rub Extremities: pulses intact, No edema, normal color, Full ROM - Gastrointestinal General gastrointestinal: Present: soft, non-tender, non-distended, normal bowel sounds - Genitourinary Female genitourinary: normal - Integumentary Integumentary: clear, warm, dry - Musculoskeletal Musculoskeletal: 1, strength equal bilaterally - Neurologic Neurologic: moves all extremities - Psychiatric Psychiatric: memory intact, appropriate mood/affect, intact judgment & insight - Labs CBC & Chem 7: 12/22/20 05:11 12/22/20 05:11 Labs: Abnormal lab results 12/20/20 12/20/20 Range/Units 04:39 04:39 RBC 2.61 L (3.65-5.03) M/mm3 Hgb 7.7 L (10.1-14.3) gm/dl Hct 23.8 L (30.3-42.9) % RDW 17.2 H (13.2-15.2) % Lymph % (Auto) 12.2 L (13.4-35.0) % Lymph # (Auto) 0.9 L (1.2-5.4) K/mm3 Seg Neutrophils % 78.5 H (40.0-70.0) % BUN 32 H (7-17) mg/dL Creatinine 5.9 H (0.6-1.2) mg/dL Glucose 121 H (65-100) mg/dL HEART Score - HEART Score Troponin: Troponin T 0.546 ng/mL (0.00-0.029) H* 12/17/20 03:47
[2020-12-21 05:47] LABS: Hematocrit 21.1 % (30.3-42.9); Mean Corpuscular HGB Conc 33 % (30-34); Mean Corpuscular Volume 91 fl (79-97); Platelet Count 236 K/mm3 (140-440); Red Blood Count 2.33 M/mm3 (3.65-5.03); Red Cell Distribution Width 16.8 % (13.2-15.2)
[2020-12-21 05:55] LABS: Basophils % (Auto) 0.5 % (0.0-1.8); Eosinophils # (Auto) 0.1 K/mm3 (0.0-0.4); Eosinophils % (Auto) 1.7 % (0.0-4.3); INR 0.91 (0.87-1.13); Lymphocytes % (Auto) 14.5 % (13.4-35.0); Monocytes # (Auto) 0.7 K/mm3 (0.0-0.8)
[2020-12-21 06:02] LABS: Calcium 10.1 mg/dL (8.4-10.2)
[2020-12-21] MEDS: ASPIRIN 81 MG TAB CHEW PO SCH ×2 (07:28→10:57)
[2020-12-21] MEDS ORDERED: HEPARIN 10,000 UNITS/10 ML VIAL ONE (08:09)
[2020-12-21] MEDS ORDERED: fentaNYL 100 MCG/2 ML INJ ONE (08:09)
[2020-12-21] MEDS ORDERED: HEPARIN/NS 5000 UNIT/500ML 1,000 ML IR ONE (08:09)
[2020-12-21] MEDS ORDERED: MIDAZOLAM 2 MG/2 ML INJ ONE (08:09)
[2020-12-21] MEDS ORDERED: NITROGLYCERIN SYRINGE 0 ML ONE (08:10)
[2020-12-21] MEDS ORDERED: LIDOCAINE (2%) 20 MG/1 ML VIAL 20 ML MDV INFILTRATI ONE (08:10)
[2020-12-21] MEDS ORDERED: VERAPAMIL 5 MG/2 ML INJ ONE (08:10)
[2020-12-21] MEDS: SODIUM CHLORIDE 0.9% 500 ML 500 ML IV SCH ×2 (08:16→08:40)
--- NOTE | 2020-12-21 09:48 | Progress Note ---
Assessment and Plan pt has non obstructive cad and moderate to severe aortic stenosis, cont asa, coreg and statin and pt sob is multifactorial from anemia, esrd on hd and cad and moderate to severe aortic stenosis and obesity, discuss with pt daughter in detail about cardiac condtion, [facility] be [facility] and followup with dr adolph maguire in two weeks and maintain regular dialysis, awating out patient placement - Patient Problems (1) Acute respiratory failure Current Visit: Yes Status: Acute Qualifiers: Respiratory failure complication: hypoxia Qualified Code(s): J96.01 - Acute respiratory failure with hypoxia (2) Acute heart failure with preserved ejection fraction (HFpEF) Current Visit: Yes Status: Acute (3) ESRD needing dialysis Current Visit: Yes Status: Acute (4) NSTEMI (non-ST elevated myocardial infarction) Current Visit: Yes Status: Acute Plan to address problem: type 2 (5) New onset of congestive heart failure Current Visit: Yes Status: Acute (6) Severe aortic stenosis Current Visit: Yes Status: Acute (7) Shortness of breath Current Visit: Yes Status: Acute (8) HLD (hyperlipidemia) Current Visit: Yes Status: Chronic Qualifiers: Hyperlipidemia type: mixed hyperlipidemia Qualified Code(s): E78.2 - Mixed hyperlipidemia Subjective Date of service: 12/21/20 Principal diagnosis: ESRD/HD, Severe Interval history: sob is stable Objective Vital Signs Temp Pulse Resp BP Pulse Ox 12/21/20 04:00 97.6 F 77 18 109/45 82 L 12/20/20 23:01 98.0 F 87 19 135/53 88 12/20/20 22:43 84 129/50 12/20/20 22:00 80 12/20/20 20:00 18 12/20/20 19:21 97.9 F 84 18 129/50 84 12/20/20 15:49 98.6 F 75 20 136/44 83 L 12/20/20 11:44 98.0 F 75 16 110/54 90 - Physical Examination General: No Apparent Distress HEENT: Positive: EOMI, Normocephaly, Mucus Membranes Moist Neck: Positive: neck supple, trachea midline Cardiac: Positive: Reg Rate and Rhythm, Audible Murmur Lungs: Positive: clear to auscultation Neuro: Positive: Grossly Intact Abdomen: Positive: Soft. Negative: Tender Skin: Negative: Rash Musculoskeletal: No Pain Extremities: Present: lower extr. pulses, warm - Labs and Meds Coagulation 12/21/20 Range/Units 05:01 PT 12.9 (12.2-14.9) Sec. INR 0.91 (0.87-1.13) CBC 12/21/20 Range/Units 05:01 WBC 6.9 (4.5-11.0) K/mm3 RBC 2.33 L (3.65-5.03) M/mm3 Hgb 7.0 L (10.1-14.3) gm/dl Hct 21.1 L (30.3-42.9) % Plt Count 236 (140-440) K/mm3 Lymph # (Auto) 1.0 L (1.2-5.4) K/mm3 Frio # (Auto) 0.7 (0.0-0.8) K/mm3 Eos # (Auto) 0.1 (0.0-0.4) K/mm3 Baso # (Auto) 0.0 (0.0-0.1) K/mm3 Comprehensive Metabolic Panel 12/21/20 Range/Units 05:01 Sodium 136 L (137-145) mmol/L Potassium 4.6 (3.6-5.0) mmol/L Chloride 98.2 (98-107) mmol/L Carbon Dioxide 26 (22-30) mmol/L BUN 44 H (7-17) mg/dL Creatinine 7.8 H (0.6-1.2) mg/dL Glucose 91 (65-100) mg/dL Calcium 10.1 (8.4-10.2) mg/dL - Imaging and Cardiology EKG: report reviewed, image reviewed Echo: report reviewed (12/17/2020 - mild LVH, EF 50-55%, impaired LV relaxation, severe w/max gradient 56.44mmHg, LA mod dilated, mild-mod MR, mod pulm HTN w/RVSP 64mmHg, mild TR) Cardiac cath: pending, report reviewed (lt main patent, lad patent, lcx patent rca mid 50% normal lv function lvedp 30 mm hg and moderate to severe aortic stenosis) - Telemetry EKG Rhythm: Sinus Rhythm - EKG Sinus rhythms and dysrhythmias: sinus rhythm Myocardial infarction: septal VA (old age or ind, anterior VA (old age or i
--- NOTE | 2020-12-21 10:07 | Progress Note ---
Assessment and Plan Impression: * End stage renal disease, new * Uremia * Severe aortic stenosis * Pulmonary edema * Elevated troponin * Metabolic acidosis * Anemia secondary to ESRD * Hypertension Plan: * Patient is s/p cardiac cath. Findings noted. Patient to be scheduled for TAVR * Patient is scheduled for dialysis treatment today. Avoid hypotension during dialysis * Outpatient dialysis being arranged at [facility] * Epogen TIW prn * Renal/HD diet * Discussed with case management Subjective Date of service: 12/21/20 Principal diagnosis: ESRD/HD, Severe Interval history: Patient seen in [facility]. She is comfortable. Denies any shortness of breath. Objective - Vital Signs Vital signs: Vital Signs - 12hr 12/20/20 12/20/20 12/21/20 22:43 23:01 04:00 Temperature 98.0 F 97.6 F Pulse Rate 84 87 77 Respiratory 19 18 Rate Blood Pressure 129/50 135/53 109/45 O2 Sat by Pulse 88 82 L Oximetry - General Appearance General appearance: well-developed, well-nourished, appears stated age EENT: PERRL, mucous membranes moist Neck: no JVD, no thyromegaly, no carotid bruit, supple Respiratory: Present: Clear to Ascultation Cardiology: regular, normal heart rate Gastrointestinal: normal, normoactive bowel sounds Integumentary: other (No edema) - Lab 12/21/20 05:01 12/21/20 05:01 Most recent lab results Calcium 10.1 mg/dL (8.4-10.2) 12/21/20 05:01 Medications & Allergies - Medications Allergies/Adverse Reactions: Allergies ampicillin Allergy (Verified 03/27/19 13:04) Vomiting stomach cramps lisinopril Allergy (Verified 03/27/19 13:04) Swelling Home Medications: Home Medications Medication Instructions Recorded Confirmed Last Taken Type amLODIPine 10 mg PO DAILY 01/01/19 12/17/20 08/30/19 06:10 History cloNIDine [Catapres] 0.2 mg PO BID 01/01/19 12/17/20 08/30/19 06:10 History raNITIdine HCL [Heartburn Relief] 75 mg PO DAILY 01/01/19 12/17/20 1 Week Ago History ~08/23/19 Aranesp 1 ampul INHALATION Q4W PRN 0312/17/20 08/12/19 History Cinacalcet HCl 30 mg PO DAILY 08/30/19 12/17/20 08/28/19 History oxyCODONE /ACETAMINOPHEN [Percocet 1 tab PO Q6HR PRN #24 tablet 08/30/19 12/17/20 Unknown Rx 5/325 mg] Active Medications: Generic Name Dose Route Start Last Admin Trade Name Freq PRN Reason Stop Dose Admin Acetaminophen 650 mg 12/16/20 23:54 12/17/20 22:22 Acetaminophen 325 Mg Tab PO 650 mg Q4H PRN Administration Pain MILD(1-3)/Fever >100.5/GILMORE Albuterol 2.5 mg 12/16/20 23:54 Albuterol 2.5 Mg/3 Ml Nebu IH Q3HRT PRN Shortness Of Breath Alprazolam 0.25 mg 12/18/20 08:00 12/19/20 09:31 Alprazolam 0.25 Mg Tab PO 0.25 mg Q8H PRN Administration Anxiety Aspirin 81 mg 12/18/20 10:00 12/21/20 07:28 Aspirin 81 Mg Tab Chew PO 81 mg QDAY CHRISTIANE Administration Carvedilol 6.25 mg 12/17/20 10:00 12/20/20 22:43 Carvedilol 6.25 Mg Tab PO 6.25 mg BID CHRISTIANE Administration Dextrose 50 ml 12/16/20 23:54 Dextrose 50% In Water (25gm) 50 Ml Syringe IV Q30MIN PRN Hypoglycemia Protocol Docusate Sodium 100 mg 12/17/20 10:00 12/20/20 22:43 Docusate Sodium 100 Mg Cap PO 100 mg BID CHRISTIANE Administration Famotidine 10 mg 12/17/20 10:00 12/20/20 22:43 Famotidine 10 Mg Tab PO 10 mg BID CHRISTIANE Administration Heparin Sodium (Porcine) 5,000 unit 12/17/20 10:00 12/20/20 22:43 Heparin 5,000 Unit/1 Ml Vial SUB-Q 5,000 unit BID CHRISTIANE Administration Sodium Chloride 100 mls @ 999 mls/hr 12/20/20 17:32 Nacl 0.9% IV BINDU PRN Hypotension Sodium Chloride 500 mls @ 50 mls/hr 12/21/20 08:00 12/21/20 08:40 Nacl 0.9% 500 Ml IV 12/21/20 20:00 50 mls/hr DIRECT CHRISTIANE Administration Nitroglycerin 0.4 mg 12/16/20 23:54 Nitroglycerin 0.4 Mg Tab Subl SL .Q5MIN PRN Chest Pain Ondansetron HCl 4 mg 12/16/20 23:54 12/19/20 21:42 Ondansetron 4 Mg/2 Ml Inj IV 4 mg Q6H PRN Administration Nausea And Vomiting Sodium Chloride 10 ml 12/17/20 10:00 12/20/20 22:44 Sodium Chloride 0.9% 10 Ml Flush Syringe IV 10 ml BID CHRISTIANE Administration Sodium Chloride 10 ml 12/16/20 23:54 Sodium Chloride 0.9% 10 Ml Flush Syringe IV PRN PRN LINE FLUSH Zolpidem Tartrate 5 mg 12/17/20 22:09 Zolpidem 5 Mg Tab PO QHS PRN Sleep
--- NOTE | 2020-12-21 10:20 | Cardiac Catherization Report ---
DATE OF SERVICE: 12/21/2020 LEFT HEART CATHETERIZATION DATE OF PROCEDURE: 12/21/2020 CLINICAL INFORMATION: A 70-year-old -[place] female with end-stage renal disease on hemodialysis, chronic anemia, has shortness of breath with on echocardiogram, severe aortic stenosis, here for a left heart cath. DESCRIPTION OF PROCEDURE: Procedure was done with moderate sedation, started at 08:43, finished at 09:10, which is 27 minutes of moderate sedation. Procedure was done via the right common femoral artery, sterile technique, local anesthesia. A 6 Ugandan groin sheath was inserted. Left system engaged with JL4 catheters, which are 5 Ugandan. Left main large and patent. LAD is a large caliber vessel, patent. Diagonal 1 medium caliber vessel, patent. Circumflex large caliber vessel, patent. OM1 and OM2 medium caliber vessel, patent. RCA medium caliber vessel, proximal patent, mid diffuse 50%, distal patent. PDA and PLV small caliber vessels that are patent. LV gram done in CHADIAN and CORONADO shows normal LV function, EF 55%-60%, LV was 203 mmHg, LVEDP at 30 mmHg, aortic is 167/71. Sctrmogc-ov-fvxzkw aortic stenosis with a uhgi-gr-nabe mean gradient of 34 mmHg. All catheter was taken over guidewire. A 6-Ugandan groin sheath was discontinued. Manual pressure held. No hematoma, no bleeding. SUMMARY: Left main patent, LAD patent, circumflex patent. RCA mid 50% moderate severe aortic stenosis. Mean gradient of 34 mmHg. EF 55%-60%. LVEDP at 30 mmHg. TID: [id number] RECEIPT: [id number] EZEKIELM/SHE/LATONIA
[2020-12-21] MEDS: HEPARIN 5,000 UNIT/1 ML VIAL SUB-Q SCH ×2 (10:57→22:26)
[2020-12-21] MEDS: FAMOTIDINE 10 MG TAB PO SCH ×2 (10:57→22:26)
[2020-12-21] MEDS: DOCUSATE SODIUM 100 MG CAP PO SCH ×2 (10:58→22:25)
[2020-12-21] MEDS: carvediloL 6.25 MG TAB PO SCH ×2 (10:58→22:26)
[2020-12-21] MEDS ORDERED: HYDROmorphone 2 MG/1 ML INJ IV PRN (14:00)
[2020-12-21] MEDS ORDERED: HYDROmorphone 1 MG/1 ML INJ IV PRN (19:00)
[2020-12-22] MEDS: ACETAMINOPHEN 325 MG TAB PO PRN (03:51)
[2020-12-22 05:50] LABS: Basophils % (Auto) 0.3 % (0.0-1.8); Eosinophils # (Auto) 0.1 K/mm3 (0.0-0.4); Eosinophils % (Auto) 1.3 % (0.0-4.3); Hemoglobin 6.9 gm/dl (10.1-14.3); Lymphocytes # (Auto) 0.5 K/mm3 (1.2-5.4); Lymphocytes % (Auto) 6.3 % (13.4-35.0); Mean Corpuscular HGB Conc 33 % (30-34); Mean Corpuscular Volume 90 fl (79-97); Monocytes # (Auto) 0.5 K/mm3 (0.0-0.8); Monocytes % (Auto) 6.7 % (0.0-7.3); Platelet Count 240 K/mm3 (140-440); Red Blood Count 2.34 M/mm3 (3.65-5.03); Red Cell Distribution Width 16.8 % (13.2-15.2)
[2020-12-22 06:00] LABS: Calcium 9.2 mg/dL (8.4-10.2)
--- NOTE | 2020-12-22 07:18 | Progress Note ---
Assessment and Plan Assessment and Plan Assessment and plan: Acute CHF (new onset) with preserved LV function Continue antifailure medications Input output monitoring Low-sodium diet fluid restriction Echocardiogram normal LV function -CXR shows Cardiomegaly with mild increased vascularity and left effusion --Non-ST elevation MA; type II Had cardiac cath today No significant stenosis Patient can be discharged Patient waiting for hemodialysis chair --Hypertension; moderate control Continue current antihypertensives and as needed medications -IV hydralazine when necessary Cardiology nephrology following --CKD stage V -Continues to make urine -Right upper arm AV fistula placed 08/2019 Nephrology evaluation noted and appreciated Initiating hemodialysis today Patient needs outpatient HD placement at discharge --Dyslipidemia; low-cholesterol diet --DVT prophylaxis; Heparin renal dose --GI prophylaxis Pepcid Advance Directives: No VTE prophylaxis?: Chemical, Mechanical Plan of care discussed with patient/family: Yes Patient is ready for discharge Needs hemodialysis chair Discussed with case management and nephrology Subjective Date of service: 12/21/20 Principal diagnosis: ESRD/HD, Severe Interval history: 70-year-old female patient with chronic kidney disease with AV graft complaints however did not receive any dialysis Nephrology evaluated the patient want to initiate hemodialysis today, cardiology recommended left heart catheterization on 12/21/2020 12/18/2020; Hemodialysis today per nephrology Cardiology schedule for heart cath on 12/21/2020 12/19/20 For cardiac cath on 12/21/2020 12/20/2020 For cardiac cath on Monday12/21/2020 Patient had a cardiac cath No critical stenosis Discussed with Dr. Ortiz Needs hemodialysis chair Objective - Constitutional Vitals: Vital Signs - 12hr 12/21/20 12/21/20 12/21/20 19:47 20:00 22:26 Temperature 98.1 F Pulse Rate 68 76 68 Respiratory 18 Rate Blood Pressure 148/67 148/67 O2 Sat by Pulse 90 Oximetry 12/21/20 12/22/20 12/22/20 23:18 00:00 03:28 Temperature 98.1 F 98.6 F Pulse Rate 80 76 76 Respiratory 17 16 Rate Blood Pressure 136/64 123/49 O2 Sat by Pulse 99 95 Oximetry 12/22/20 04:00 Temperature Pulse Rate 87 Respiratory Rate Blood Pressure O2 Sat by Pulse Oximetry General appearance: Present: no acute distress, well-nourished - EENT Eyes: PERRL, EOM intact ENT: hearing intact, clear oral mucosa Ears: bilateral: normal - Neck Neck: supple, normal ROM - Respiratory Respiratory effort: normal Respiratory: bilateral: CTA - Breasts Breasts: normal - Cardiovascular Heart rate: 78 Rhythm: regular Heart Sounds: Present: S1 & S2. Absent: gallop, rub Extremities: pulses intact, No edema, normal color, Full ROM - Gastrointestinal General gastrointestinal: Present: soft, non-tender, non-distended, normal bowel sounds - Genitourinary Female genitourinary: normal - Integumentary Integumentary: clear, warm, dry - Musculoskeletal Musculoskeletal: 1, strength equal bilaterally - Neurologic Neurologic: moves all extremities - Psychiatric Psychiatric: memory intact, appropriate mood/affect, intact judgment & insight - Labs CBC & Chem 7: 12/22/20 05:11 12/22/20 05:11 Labs: Abnormal lab results 12/22/20 12/22/20 Range/Units 05:11 05:11 RBC 2.34 L (3.65-5.03) M/mm3 Hgb 6.9 L (10.1-14.3) gm/dl Hct 21.0 L (30.3-42.9) % RDW 16.8 H (13.2-15.2) % Lymph % (Auto) 6.3 L (13.4-35.0) % Lymph # (Auto) 0.5 L (1.2-5.4) K/mm3 Seg Neutrophils % 85.4 H (40.0-70.0) % Sodium 135 L (137-145) mmol/L BUN 24 H (7-17) mg/dL Creatinine 4.7 H (0.6-1.2) mg/dL Glucose 103 H (65-100) mg/dL HEART Score - HEART Score Troponin: Troponin T 0.546 ng/mL (0.00-0.029) H* 12/17/20 03:47
--- NOTE | 2020-12-22 09:07 | Progress Note ---
Assessment and Plan Impression: * End stage renal disease, new * Uremia * Severe aortic stenosis * Pulmonary edema * Elevated troponin * Metabolic acidosis * Anemia secondary to ESRD * Hypertension Plan: * Patient is s/p cardiac cath on 12/21/2020.. Findings noted. * Patient had uneventful hemodialysis yesterday. Avoid hypotension during dialysis * Epogen TIW prn * Renal/HD diet * Discussed with Margi at [facility]. * Outpatient dialysis arranged for 1 PM on MWF schedule at [facility] * Okay to discharge patient home from renal standpoint Subjective Date of service: 12/22/20 Principal diagnosis: ESRD/HD, Severe Interval history: Patient is comfortable today. Shortness of breath is better. Denies any chest pain. Status post cardiac cath yesterday. Objective - Vital Signs Vital signs: Vital Signs - 12hr 12/21/20 12/21/20 12/22/20 22:26 23:18 00:00 Temperature 98.1 F Pulse Rate 68 80 76 Respiratory 17 Rate Blood Pressure 148/67 136/64 O2 Sat by Pulse 99 Oximetry 12/22/20 12/22/20 12/22/20 03:28 04:00 08:12 Temperature 98.6 F Pulse Rate 76 87 87 Respiratory 16 Rate Blood Pressure 123/49 O2 Sat by Pulse 95 Oximetry - General Appearance General appearance: well-developed, well-nourished, appears stated age EENT: PERRL, mucous membranes moist Neck: no JVD, no thyromegaly, no carotid bruit, supple Respiratory: Present: Clear to Ascultation Cardiology: regular, normal heart rate, S1S2, no murmurs Gastrointestinal: normal Integumentary: other (No edema. AV graft right upper extremity. Good bruit and thrill.) - Lab 12/22/20 05:11 12/22/20 05:11 Most recent lab results Calcium 9.2 mg/dL (8.4-10.2) 12/22/20 05:11 Medications & Allergies - Medications Allergies/Adverse Reactions: Allergies ampicillin Allergy (Verified 03/27/19 13:04) Vomiting stomach cramps lisinopril Allergy (Verified 03/27/19 13:04) Swelling Home Medications: Home Medications Medication Instructions Recorded Confirmed Last Taken Type amLODIPine 10 mg PO DAILY 01/01/19 12/17/20 08/30/19 06:10 History cloNIDine [Catapres] 0.2 mg PO BID 01/01/19 12/17/20 08/30/19 06:10 History raNITIdine HCL [Heartburn Relief] 75 mg PO DAILY 01/01/19 12/17/20 1 Week Ago History ~08/23/19 Aranesp 1 ampul INHALATION Q4W PRN 08/30/19 12/17/20 08/12/19 History Cinacalcet HCl 30 mg PO DAILY 08/30/19 12/17/20 08/28/19 History oxyCODONE /ACETAMINOPHEN [Percocet 1 tab PO Q6HR PRN #24 tablet 08/30/19 12/17/20 Unknown Rx 5/325 mg] Active Medications: Generic Name Dose Route Start Last Admin Trade Name Freq PRN Reason Stop Dose Admin Acetaminophen 650 mg 12/16/20 23:54 12/22/20 03:51 Acetaminophen 325 Mg Tab PO 650 mg Q4H PRN Administration Pain MILD(1-3)/Fever >100.5/GILMORE Albuterol 2.5 mg 12/16/20 23:54 Albuterol 2.5 Mg/3 Ml Nebu IH Q3HRT PRN Shortness Of Breath Alprazolam 0.25 mg 12/18/20 08:00 12/19/20 09:31 Alprazolam 0.25 Mg Tab PO 0.25 mg Q8H PRN Administration Anxiety Aspirin 81 mg 12/18/20 10:00 12/21/20 10:57 Aspirin 81 Mg Tab Chew PO 81 mg QDAY CHRISTIANE Administration Carvedilol 6.25 mg 12/17/20 10:12/21/20 22:26 Carvedilol 6.25 Mg Tab PO 6.25 mg BID CHRISTIANE Administration Dextrose 50 ml 12/16/20 23:54 Dextrose 50% In Water (25gm) 50 Ml Syringe IV Q30MIN PRN Hypoglycemia Protocol Docusate Sodium 100 mg 12/17/20 10:00 12/21/20 22:25 Docusate Sodium 100 Mg Cap PO 100 mg BID CHRISTIANE Administration Famotidine 10 mg 12/17/20 10:00 12/21/20 22:26 Famotidine 10 Mg Tab PO 10 mg BID CHRISTIANE Administration Heparin Sodium (Porcine) 5,000 unit 12/17/20 10:00 12/21/20 22:26 Heparin 5,000 Unit/1 Ml Vial SUB-Q 5,000 unit BID CHRISTIANE Administration Hydromorphone HCl 1 mg 12/21/20 19:00 12/21/20 18:33 Hydromorphone 1 Mg/1 Ml Inj IV 1 mg Q3H PRN Administration Pain , Severe (7-10) Sodium Chloride 100 mls @ 999 mls/hr 12/20/20 17:32 Nacl 0.9% IV BINDU PRN Hypotension Ondansetron HCl 4 mg 12/16/20 23:54 12/19/20 21:42 Ondansetron 4 Mg/2 Ml Inj IV 4 mg Q6H PRN Administration Nausea And Vomiting Sodium Chloride 10 ml 12/17/20 10:00 12/21/20 22:27 Sodium Chloride 0.9% 10 Ml Flush Syringe IV 10 ml BID CHRISTIANE Administration Sodium Chloride 10 ml 12/16/20 23:54 Sodium Chloride 0.9% 10 Ml Flush Syringe IV PRN PRN LINE FLUSH Zolpidem Tartrate 5 mg 12/17/20 22:09 Zolpidem 5 Mg Tab PO QHS PRN Sleep
[2020-12-22] MEDS: ASPIRIN 81 MG TAB CHEW PO SCH (10:14)
[2020-12-22] MEDS: carvediloL 6.25 MG TAB PO SCH (10:14)
[2020-12-22] MEDS: ALPRAZolam 0.25 MG TAB PO PRN (10:14)
[2020-12-22] MEDS: DOCUSATE SODIUM 100 MG CAP PO SCH (10:14)
[2020-12-22] MEDS: FAMOTIDINE 10 MG TAB PO SCH (10:14)
--- NOTE | 2020-12-22 10:48 | Progress Note ---
Assessment and Plan Severe Aortic Stenosis & Acute HFpEF in setting of Nonobstructive CAD * Echocardiogram reviewed (12/16/2020): LVEF is 50 to 55%. LV is normal size. LV SF is normal. Mild LVH. Right ventricle is mildly dilated. RV SF is normal. LA is moderately dilated. Severe aortic stenosis hyoscyamine AVG is a 56.44 mmHg, no AR is present. Mild to moderate MR. Moderate pulmonary hypertension. Mild TR. RVSP is 64 mmHg. * LHC (12/21/2020): Left main patent, LAD patent, circumflex patent. RCA mid 50% moderate severe aortic stenosis. Mean gradient of 34 mmHg. EF 55 to 60%. LV EDP at 30 mmHg. * Optimize cardioprotective regimen: Continue ASA 81, Coreg 6.25 twice daily, statin. NSTEMI type II in setting of ESRD needing dialysis * Patient is currently chest pain-free. Twelve-lead ECG shows normal sinus rhythm with no acute ischemic changes. Troponins are significantly elevated, unchanging. LHC is negative for obstructive CAD. AMI ruled out. Acute Respiratory Failure in setting of anemia * Patient is currently maintaining O2 sats without supplemental oxygen. Shortness of breath is multifactorial in setting of anemia, ESRD on HD, CAD, severe and obesity. DVT Prophylaxis * Heparin SQ Patient is currently stable cardiac status. Patient may discharge from cardiac standpoint. Will follow on as-needed basis. Patient should follow-up with Dr Twyla Mcgraw in our [place] location on 01/15/2021 at 3:15 PM. #[id number] This patient was seen in conjunction with Dr Sage who agrees with this assessment and plan of care - Patient Problems (1) Acute respiratory failure Current Visit: Yes Status: Acute Qualifiers: Respiratory failure complication: hypoxia Qualified Code(s): J96.01 - Acute respiratory failure with hypoxia (2) Acute heart failure with preserved ejection fraction (HFpEF) Current Visit: Yes Status: Acute (3) ESRD needing dialysis Current Visit: Yes Status: Acute (4) NSTEMI (non-ST elevated myocardial infarction) Current Visit: Yes Status: Acute Plan to address problem: type 2 (5) New onset of congestive heart failure Current Visit: Yes Status: Acute (6) Severe aortic stenosis Current Visit: Yes Status: Acute (7) Shortness of breath Current Visit: Yes Status: Acute (8) HLD (hyperlipidemia) Current Visit: Yes Status: Chronic Qualifiers: Hyperlipidemia type: mixed hyperlipidemia Qualified Code(s): E78.2 - Mixed hyperlipidemia Subjective Date of service: 12/22/20 Principal diagnosis: ESRD/HD, Severe Interval history: Patient resting comfortably in bed. No chest pain or shortness of breath overnight Telemetry reviewed: Sinus rhythm 76. No events Objective Last Vital Signs Temp 97.8 F 12/22/20 09:03 Pulse 73 12/22/20 09:03 Resp 20 12/22/20 09:03 BP 120/41 12/22/20 09:03 Pulse Ox 94 12/22/20 09:03 - Physical Examination General: No Apparent Distress HEENT: Positive: EOMI, Normocephaly, Mucus Membranes Moist Neck: Positive: neck supple, trachea midline Cardiac: Positive: Reg Rate and Rhythm, S1/S2 Lungs: Positive: Normal Exam, Normal Breath Sounds Neuro: Positive: Grossly Intact Abdomen: Positive: Soft. Negative: Tender Skin: Negative: Rash Musculoskeletal: No Pain Extremities: Present: lower extr. pulses, warm - Labs and Meds CBC 12/22/20 Range/Units 05:11 WBC 8.2 (4.5-11.0) K/mm3 RBC 2.34 L (3.65-5.03) M/mm3 Hgb 6.9 L (10.1-14.3) gm/dl Hct 21.0 L (30.3-42.9) % Plt Count 240 (140-440) K/mm3 Lymph # (Auto) 0.5 L (1.2-5.4) K/mm3 Beckham # (Auto) 0.5 (0.0-0.8) K/mm3 Eos # (Auto) 0.1 (0.0-0.4) K/mm3 Baso # (Auto) 0.0 (0.0-0.1) K/mm3 Comprehensive Metabolic Panel 12/22/20 Range/Units 05:11 Sodium 135 L (137-145) mmol/L Potassium 4.2 (3.6-5.0) mmol/L Chloride 98.7 (98-107) mmol/L Carbon Dioxide 26 (22-30) mmol/L BUN 24 H (7-17) mg/dL Creatinine 4.7 H (0.6-1.2) mg/dL Glucose 103 H (65-100) mg/dL Calcium 9.2 (8.4-10.2) mg/dL - Imaging and Cardiology EKG: report reviewed, image reviewed Echo: report reviewed (12/17/2020 - mild LVH, EF 50-55%, impaired LV relaxation, severe w/max gradient 56.44mmHg, LA mod dilated, mild-mod MR, mod pulm HTN w/RVSP 64mmHg, mild TR) Cardiac cath: pending, report reviewed (lt main patent, lad patent, lcx patent rca mid 50% normal lv function lvedp 30 mm hg and moderate to severe aortic stenosis) - Telemetry EKG Rhythm: Sinus Rhythm - EKG Sinus rhythms and dysrhythmias: sinus rhythm Myocardial infarction: septal AR (old age or ind, anterior AR (old age or i
[2020-12-22] MEDS: HEPARIN 5,000 UNIT/1 ML VIAL SUB-Q SCH (10:54)
[2020-12-22 12:52] LABS: Hematocrit 23.1 % (30.3-42.9); Hemoglobin 7.4 gm/dl (10.1-14.3)
--- NOTE | 2020-12-22 13:58 | Discharge Summary ---
Providers - Providers Date of Admission: 12/17/20 09:17 Date of discharge: 12/22/20 Attending physician: BETTYE AREVALO 12/16/20 23:54 Consult to Physician [CONS] Routine Comment: Consulting Provider: [place] Physician Instructions: Reason For Exam: CKD5 mgmt est pt Consult to Physician [CONS] Routine Comment: Consulting Provider: TIFF VALLES Physician Instructions: Reason For Exam: new onset HF 12/17/20 09:56 Consult to Case Management [CONS] Routine Services Needed at Discharge: Other Notified:: corrections caseworker Additional Physician Instructions: OUTPATIENT HEMODIALYSIS CLINIC PLACEMENT 12/21/20 09:43 Consult to Cardiac Rehabilitation [CONS] Routine Reason For Exam: Cardiac Rehab Evaluation Primary care physician: ICING MAKER Hospitalization Reason for admission: Worsening shortness of breath/fluid overload Condition: Stable Pertinent studies: X-ray Echocardiogram -CXR shows Cardiomegaly with mild increased vascularity and left effusion Procedures: Heart cath 12/21/2020 left main patent LAD patent, circumflex patent RCA mid 50% moderate severe aortic stenosis EF 55 to 60% EF 55 to 60% Hospital course: 70-year-old -Ira[place] female patient with history of CKD stage V (not on HD), hypertension, heart murmur, and HLD was admitted through emergency room, with worsening shortness of breath. Patient also had 3 pillow orthopnea and unable to walk flight of stairs. Initial evaluation was consistent with acute on chronic congestive heart failure with preserved left ventricular function as well as end-stage renal disease with right upper arm AV fistula however never started dialysis. Patient was evaluated by meter maintenance person, medications optimized,, underwent heart cath which revealed nonobstructive coronaries with preserved LV function. Patient was evaluated by retail gift card merchandising, initiated hemodialysis, set up outpatient HD per schedule Patient symptoms gradually improved, mild drop in hemoglobin this morning to 6.9, however repeat hemoglobin was 7.4. Today she is comfortable no new complaints vital signs stable, physical examination prior to discharge is unremarkable. Cardiology cleared for discharge and follow-up in the office, nephrology cleared for discharge and follow-up in the office as well as dialysis per schedule Patient strongly advised to comply with dialysis medications follow-up visits and diet Patient verbalized understanding Outpatient dialysis arranged for 1 PM on [facility] schedule at [facility] Discharge diagnosis; --Acute CHF (new onset) with preserved LV function Continue antifailure medications Echocardiogram normal LV function --Non-ST elevation WA; type II Had cardiac cath today No significant stenosis Patient can be discharged Patient waiting for hemodialysis chair --Hypertension; moderate control Continue current antihypertensives and as needed medications -IV hydralazine when necessary Cardiology nephrology following --CKD stage V -Continues to make urine -Right upper arm AV fistula placed 08/2019 Nephrology evaluation noted and appreciated Initiating hemodialysis today Patient needs outpatient HD placement at discharge --Dyslipidemia; low-cholesterol diet --Morbid obesity; BMI 39.8 --DVT prophylaxis; Heparin renal dose --GI prophylaxis Pepcid Disposition: DC TO HOME OR SELFCARE Final Discharge Diagnosis (Prints w/discharge instructions): Acute CHF with preserved LV function. Non-ST elevation WA type II. Hypertension chronic kidney disease. ESRD on dialysis. Right arm fistula. Dyslipidemia. Obesity; BMI 39.8 Time spent for discharge: 35 min Core Measure Documentation - Palliative Care Palliative Care/ Comfort Measures: Not Applicable - Core Measures Any of the following diagnoses?: none Exam - Constitutional Vitals: Temp Pulse Resp BP Pulse Ox 98.3 F 70 20 126/60 92 12/22/20 11:55 12/22/20 11:55 12/22/20 11:55 12/22/20 11:55 12/22/20 11:55 General appearance: Present: no acute distress, well-nourished - EENT Eyes: Present: PERRL, EOM intact - Neck Neck: Present: supple, normal ROM - Respiratory Respiratory effort: normal Respiratory: bilateral: diminished, negative: rales, rhonchi, wheezing - Cardiovascular Rhythm: regular Heart Sounds: Present: S1 & S2 - Extremities Extremities: no ischemia, No edema - Abdominal General gastrointestinal: Present: soft, non-tender, non-distended, normal bowel sounds - Integumentary Integumentary: Present: clear, warm - Musculoskeletal Musculoskeletal: strength equal bilaterally - Psychiatric Psychiatric: appropriate mood/affect, cooperative - Neurologic Neurologic: CNII-XII intact, moves all extremities Plan Activity: advance as tolerated, fall precautions Diet: renal Additional Instructions: Follow renal per schedule. Follow dialysis per schedule. Ambulate as tolerated. Diet modification, exercise as tolerated and weight reduction when stable. If you have worsening symptoms contact MD or go to emergency room as needed Follow up with: PRIMARY CARE, [Primary Care Provider] - 7 Days DONALD CHRISTIANSON MD [Staff Physician] - 7 Days UGO GILLIAM MD [Staff Physician] - 01/15/21 3:15 pm Prescriptions: Aspirin [Aspirin BABY CHEW TAB] 81 mg PO QDAY #30 tab.chew Docusate Sodium [Colace CAP] 100 mg PO BID PRN #20 capsule PRN Reason: Constipation carvediloL [Coreg] 6.25 mg PO BID #60 tablet AtorvaSTATin [Lipitor] 40 mg PO QHS #30 tablet Famotidine [Pepcid] 10 mg PO BID #60 tablet ALPRAZolam [Xanax TAB] 0.25 mg PO Q8H PRN #15 tablet PRN Reason: Anxiety
[2020-12-22 16:34] VITALS: BP 131/50
--- NOTE | 2020-12-22 16:46 | XRay Report ---
CHEST 1 VIEW INDICATION / CLINICAL INFORMATION: sob. COMPARISON: 12/16/2020 FINDINGS: SUPPORT DEVICES: None. HEART / MEDIASTINUM: Cardiomegaly LUNGS / PLEURA: No significant pulmonary or pleural abnormality. No pneumothorax. ADDITIONAL FINDINGS: No significant additional findings. IMPRESSION: Since 12/16/2020, left pleural effusion has resolved. On today's examination, no acute disease is seen Signer Name: Michele Moran MD FACR Signed: 12/22/2020 4:41 PM Workstation Name: [id number]
== END 2020-12-22 18:02 | disposition home or self-care (01) | DRG 280 ==
LOC: ED 20:15 → 4A 23:36 → OBSVTOIN 12-17 09:17
PROVIDERS: ADMIT Internal Medicine Geriatric Medicine; ATTEND Internal Medicine
PROC: 5A1D70Z Performance of Urinary Filtration, Intermittent, Less than 6 Hours Per Day (ICD-10-PCS; 2020-12-18)
PROC: 5A1D70Z Performance of Urinary Filtration, Intermittent, Less than 6 Hours Per Day (ICD-10-PCS; 2020-12-19)
PROC: 4A023N7 Measurement of Cardiac Sampling and Pressure, Left Heart, Percutaneous Approach (ICD-10-PCS; principal; 2020-12-21)
PROC: 5A1D70Z Performance of Urinary Filtration, Intermittent, Less than 6 Hours Per Day (ICD-10-PCS; 2020-12-21)
DX: I13.2 Hypertensive heart and chronic kidney disease with heart failure and with stage 5 chronic kidney disease, or end stage renal disease (principal); I50.31 Acute diastolic (congestive) heart failure; I21.A1 Myocardial infarction type 2; N18.6 End stage renal disease; J96.01 Acute respiratory failure with hypoxia; E87.2 Acidosis; D63.1 Anemia in chronic kidney disease; K21.9 Gastro-esophageal reflux disease without esophagitis; E66.01 Morbid (severe) obesity due to excess calories; E78.5 Hyperlipidemia, unspecified; I35.0 Nonrheumatic aortic (valve) stenosis; I27.20 Pulmonary hypertension, unspecified; Z20.822 Contact with and (suspected) exposure to COVID-19; Z79.899 Other long term (current) drug therapy; Z79.891 Long term (current) use of opiate analgesic; Z79.01 Long term (current) use of anticoagulants; Z88.1 Allergy status to other antibiotic agents; Z88.8 Allergy status to other drugs, medicaments and biological substances; Z90.710 Acquired absence of both cervix and uterus; Z82.49 Family history of ischemic heart disease and other diseases of the circulatory system; Z68.39 Body mass index [BMI] 39.0-39.9, adult
CPT/HCPCS: 36415; 71045; 71046; 80048; 80053; 80061; 80074; 82728; 83036; 83550; 83880; 84484; 85014; 85018; 85025; 85610; 85730; 93005; 93306; 93458; 94640; G0378; C1769; C1894; J1170; J1644; J1940; J2250; J2405; J3010; J7040; Q9967; U0003

== ENCOUNTER 2021-01-18 12:46 | Emergency (ER) | payer MEDICARE ==
[2021-01-18 13:39] VITALS: BP 174/78
--- NOTE | 2021-01-18 14:09 | Event Note ---
ED Screening Note Date of service: 01/18/21 Time: 14:08 ED Screening Note: Patient complains of shortness of breath worsening with exertion CKD stage V and hypertension Admitted 12/16/2020-had a cardiac cath that did not show occlusion Patient was also newly diagnosed with CHF This initial assessment/diagnostic orders/clinical plan/treatment(s) is/are subject to change based on patients health status, clinical progression and re- assessment by fellow clinical providers in the ED. Further treatment and workup at subsequent clinical providers discretion. Patient/guardian urged not to elope from the ED as their condition may be serious if not clinically assessed and managed. Initial orders include: Labs EKG Chest x-ray
--- NOTE | 2021-01-18 14:46 | XRay Report ---
CHEST 2 VIEWS INDICATION: SOB. COMPARISON: 12/22/2020 FINDINGS: Support devices: None. Heart: Stable mild cardiomegaly. Lungs/pleura: No acute air space or interstitial disease. No pneumothorax. Additional findings: None. IMPRESSION: Stable cardiomegaly. Lungs clear. Signer Name: Marcos Viramontes Jr, MD Signed: 01/18/2021 2:42 PM Workstation Name: [id number]
[2021-01-18 15:28] LABS: Albumin 3.6 g/dL (3.9-5); Blood Urea Nitrogen 46 mg/dL (7-17); Calcium 9.6 mg/dL (8.4-10.2); Hemolysis Index 3
[2021-01-18 15:29] LABS: Alanine Aminotransferase < 5 units/L (7-56); BUN/Creatinine Ratio 6
[2021-01-18 15:37] LABS: Hematocrit 27.6 % (30.3-42.9); Hemoglobin 8.7 gm/dl (10.1-14.3); Mean Corpuscular Volume 92 fl (79-97)
[2021-01-18 15:38] LABS: Basophils % (Auto) 0.4 % (0.0-1.8); Eosinophils # (Auto) 0.1 K/mm3 (0.0-0.4); Eosinophils % (Auto) 2.1 % (0.0-4.3); Lymphocytes # (Auto) 0.8 K/mm3 (1.2-5.4); Lymphocytes % (Auto) 15.2 % (13.4-35.0); Mean Corpuscular HGB Conc 32 % (30-34); Monocytes # (Auto) 0.4 K/mm3 (0.0-0.8); Monocytes % (Auto) 8.2 % (0.0-7.3); Platelet Count 325 K/mm3 (140-440); Red Cell Distribution Width 16.1 % (13.2-15.2)
[2021-01-18 16:09] LABS: Chol/HDL Ratio 3.88 %; HDL Cholesterol 54 mg/dL (40-59); LDL Cholesterol,Direct 140 mg/dL (50-130)
--- NOTE | 2021-01-19 10:31 | Electrocardiograph Report ---
[facility] Test Date: 2021-01-18 Test Time: 14:39:45 Pat Name: ELOY PAN Department: Room: Gender: F Shot Blaster: LILO : 1950 Requested By: TERRI JIN Order Number: [id number] Reading MD: Martell Dixon Measurements Intervals Valentine Rate: 75 P: 45 GA: 204 QRS: 3 QRSD: 100 T: 63 QT: 426 QTc: 476 Interpretive Statements Sinus rhythm Probable left atrial enlargement Probable anteroseptal infarct, old Compared to ECG 12/18/2020 07:04:02 No significant change noted. Electronically Signed On 01-19-2021 10:30:57 EDT by Martell Dixon
== END 2021-01-18 17:30 ==
LOC: ED 12:46
DX: R06.00 Dyspnea, unspecified (principal); E78.5 Hyperlipidemia, unspecified; Z53.21 Procedure and treatment not carried out due to patient leaving prior to being seen by health care provider
CPT/HCPCS: 36415; 71046; 80053; 80061; 83880; 84484; 85025; 93005

== ENCOUNTER 2021-05-10 14:44 | Observation (INO) | payer MEDICARE ==
--- NOTE | 2021-05-10 16:09 | Emergency Department Report ---
<CHRISTOFER MCCLELLAND - Last Filed: 05/10/21 18:38> ED General Adult HPI - General Stated complaint: MED CLEARANCE Time Seen by Provider: 05/10/21 15:38 Source: patient Mode of arrival: Ambulatory Limitations: No Limitations - History of Present Illness Initial comments: 70-year-old female who has a history of end-stage renal disease currently on hemodialysis Monday and Monday, history of hypertension, and recent aortic valve replacement and congestive heart failure presents to the ER today for blood work for dialysis. Patient states that she was recently discharged from the hospital last week Monday after being admitted for aortic valve replacement. Patient states that she went to dialysis on the following Monday, but missed dialysis on Monday because she got sick. She states that when she tried to go to dialysis today, they told her that she would need blood work before she can get dialysis. She states that she went to a [place] urgent care, they did do the labs, but unfortunately the results are not final be back until tomorrow. She goes to [facility] for dialysis. She states that they spoke to her urologist, Dr. Jack, and he recommended that she come to the ER for labs. Patient states that other than the generalized fatigue and weakness which she has had since her surgery she otherwise feels okay. She has no chest pain, abdominal pain, she is no longer having any diarrhea or vomiting or any additional symptoms. Of note: I was able to talk to the nurse at the [facility] clinic, and she reported to me that when the patient misses dialysis, the supposed to have labs prior to being able to get dialysis again. Typically they need to get the results of calcium, phosphorus and potassium. She referred patient to the [place] urgent care to get the labs done hoping that they would get the results early enough to where she could get her dialysis today but since it is already 4:00 patient likely will not be able to get dialyzed today. Complaint: Sent for labs from Dialysis clinic -: This morning Severity scale (0 -10): 0 - Related Data Home Medications Medication Instructions Recorded Confirmed Last Taken raNITIdine HCL [Heartburn Relief] 75 mg PO DAILY 01/01/19 12/17/20 1 Week Ago ~08/23/19 Aranesp 1 ampul INHALATION Q4W PRN 08/30/19 12/17/2008/12/20 Cinacalcet HCl 30 mg PO DAILY 08/30/19 12/17/20 08/28/19 Previous Rx's Medication Instructions Recorded Last Taken Type oxyCODONE /ACETAMINOPHEN [Percocet 1 tab PO Q6HR PRN #24 tablet 08/30/19 Unknown Rx 5/325 mg] ALPRAZolam [Xanax TAB] 0.25 mg PO Q8H PRN #15 tablet 12/22/20 Unknown Rx Aspirin [Aspirin BABY CHEW TAB] 81 mg PO QDAY #30 tab.chew 12/22/20 Unknown Rx AtorvaSTATin [Lipitor] 40 mg PO QHS #30 tablet 12/22/20 Unknown Rx Docusate Sodium [Colace CAP] 100 mg PO BID PRN #20 capsule 12/22/20 Unknown Rx Famotidine [Pepcid] 10 mg PO BID #60 tablet 12/22/20 Unknown Rx carvediloL [Coreg] 6.25 mg PO BID #60 tablet 12/22/20 Unknown Rx Allergies Allergy/AdvReac Type Severity Reaction Status Date / Time ampicillin Allergy Vomiting Verified 03/27/19 13:04 lisinopril Allergy Swelling Verified 03/27/19 13:04 ED Review of Systems Comment: All other systems reviewed and negative Constitutional: malaise, weakness. denies: chills, fever ENT: denies: ear pain, throat pain Respiratory: denies: cough, shortness of breath, wheezing Cardiovascular: denies: chest pain, palpitations, dyspnea on exertion, edema, syncope, paroxysmal nocturnal dyspnea Gastrointestinal: denies: abdominal pain, nausea, vomiting, diarrhea, constipation, hematemesis, hematochezia Genitourinary: denies: urgency, dysuria, frequency, hematuria, discharge, a bnormal menses Musculoskeletal: denies: back pain, joint swelling, arthralgia Skin: denies: rash, lesions, change in color, change in hair/nails ED Past Medical Hx - Past Medical History Hx Hypertension: Yes Hx Heart Attack/AMI: Yes Hx Congestive Heart Failure: Yes Hx GERD: Yes Hx Renal Disease: Yes (Stage V seeing a Intel Analyst) Additional medical history: Seeing kidney doctor monthly for kidney disease, Heart Murmur, Has a Av graft/fistula placed in right arm but not accessed yet - Surgical History Additional Surgical History: Hysterectomy, Right AV graft/fistula not accessed yet - Social History Smoking Status: Never Smoker - Medications Home Medications: Home Medications Medication Instructions Recorded Confirmed Last Taken Type raNITIdine HCL [Heartburn Relief] 75 mg PO DAILY 01/01/19 12/17/20 1 Week Ago History ~08/23/19 Aranesp 1 ampul INHALATION Q4W PRN 08/30/19 12/17/20 08/12/19 History Cinacalcet HCl 30 mg PO DAILY 08/30/19 12/17/20 08/28/19 History oxyCODONE /ACETAMINOPHEN [Percocet 1 tab PO Q6HR PRN #24 tablet 08/30/19 12/17/20 Unknown Rx 5/325 mg] ALPRAZolam [Xanax TAB] 0.25 mg PO Q8H PRN #15 tablet 12/22/20 Unknown Rx Aspirin [Aspirin BABY CHEW TAB] 81 mg PO QDAY #30 tab.chew 12/22/20 Unknown Rx AtorvaSTATin [Lipitor] 40 mg PO QHS #30 tablet 12/22/20 Unknown Rx Docusate Sodium [Colace CAP] 100 mg PO BID PRN #20 capsule 12/22/20 Unknown Rx Famotidine [Pepcid] 10 mg PO BID #60 tablet 12/22/20 Unknown Rx carvediloL [Coreg] 6.25 mg PO BID #60 tablet 12/22/20 Unknown Rx ED Physical Exam - General General appearance: alert, in no apparent distress - Head Head exam: Present: atraumatic, normocephalic, normal inspection - Eye Eye exam: Present: normal appearance, PERRL, EOMI Pupils: Present: normal accommodation - ENT ENT exam: Present: normal exam, TM's normal bilaterally. Absent: mucous membranes moist - Neck Neck exam: Present: normal inspection, full ROM. Absent: meningismus - Respiratory Respiratory exam: Present: normal lung sounds bilaterally. Absent: respiratory distress, wheezes, rales, rhonchi - Cardiovascular Cardiovascular Exam: Present: regular rate, normal rhythm, normal heart sounds - GI/Abdominal GI/Abdominal exam: Present: soft. Absent: distended, tenderness, guarding - Neurological Exam Neurological exam: Present: alert, oriented X3, CN II-XII intact, normal gait - Psychiatric Psychiatric exam: Present: normal affect, normal mood - Skin Skin exam: Present: intact ED Medical Decision Making - Lab Data Result diagrams: 05/10/21 16:32 05/10/21 16:32 - Radiology Data Radiology results: report reviewed Patient: ELOY PAN MR#: [id number] : 1950 Acct:[id number] Age/Sex: 70 / F ADM Date: 05/10/21 Loc: ED Attending Dr: Ordering Physician: CHRISTOFER MCCLELLAND Date of Service: 05/10/21 Procedure(s): XR chest routine 2V Accession Number(s): [id number] cc: CHRISTOFER MCCLELLAND Fluoro Time In Minutes: XR chest routine 2V INDICATION / CLINICAL INFORMATION: Sob. COMPARISON: 01/18/2021 FINDINGS: SUPPORT DEVICES: None. HEART /PULMONARY VASCULATURE: There is cardiomegaly. Cardiac loop recorder is present. TAVR. Pulmonary vasculature is mildly prominent. LUNGS / PLEURA: No significant pulmonary or pleural abnormality. No pneumothorax. ADDITIONAL FINDINGS: No significant additional findings. IMPRESSION: Cardiomegaly with mild prominence of the pulmonary vasculature, may reflect mild CHF. Signer Name: Yumiko Lux MD Signed: 05/10/2021 5:04 PM Workstation Name: [id number] Transcribed By: JS Dictated By: YUMIKO LUX MD Electronically Authenticated By: YUMIKO LUX MD Signed Date/Time: 05/10/211703 DD/ 02 TD/TT: - Medical Decision Making 1630: Patient now reporting that she is starting to feel bad. She states that she is not feeling dizzy, feeling nauseous and having shortness of breath. We will add a troponin, EKG and a chest x-ray to her pending work-up. 1741: Patient was also seen and evaluated by Dr Deleon, see his note for details. All labs -patient is anemic, but that is likely secondary to her renal disease, CMP shows that she is hyperkalemic she is a true result from lab and again likely because she has not been dialyzed since Monday and her troponin is elevated she does have a history of chronically elevated troponin and could be related to her renal disease. EKG does not show any STEMI or acute ischemic changes or any significant dysrhythmias . Chest x-ray reviewed and shows some fluid overload. 175: Discussed case with Dr Javed, director of technology, he recommend treating patient hyperkalemia now, admitted to the hospitalist service and patient will get dialyzed tomorrow. 1801: Discussed case with Dr. Khan, hospitalist for admission. ED Disposition Clinical Impression: ESRD (end stage renal disease) on dialysis, Volume overload, Hyperkalemia, Elev ated troponin, ESRD needing dialysis, Hypertension Disposition: ADMITTED INPATIENT Is pt being admited?: Yes Condition: Stable Instructions: Hypertension (ED) <ROGE DELEON - Last Filed: 05/10/21 20:06> ED Review of Systems ROS: Stated complaint: MED CLEARANCE Other details as noted in HPI ED Course Vital Signs 05/10/21 15:20 Temperature 98.6 F Pulse Rate 68 Respiratory 16 Rate Blood Pressure 170/66 [Left] O2 Sat by Pulse 99 Oximetry ED Medical Decision Making - Lab Data Result diagrams: 05/10/21 16:32 05/10/21 16:32 Lab Results 05/10/21 05/10/21 05/10/21 Range/Units 16:32 16:32 16:32 WBC 4.0 L (4.5-11.0) K/mm3 RBC 2.86 L (3.65-5.03) M/mm3 Hgb 7.9 L (10.1-14.3) gm/dl Hct 25.4 L (30.3-42.9) % MCV 89 (79-97) fl MCH 28 (28-32) pg MCHC 31 (30-34) % RDW 19.0 H (13.2-15.2) % Plt Count 318 (140-440) K/mm3 Lymph % (Auto) 17.8 (13.4-35.0) % [place] % (Auto) 10.0 H (0.0-7.3) % Eos % (Auto) 2.5 (0.0-4.3) % Baso % (Auto) 1.0 (0.0-1.8) % Lymph # (Auto) 0.7 L (1.2-5.4) K/mm3 [place] # (Auto) 0.4 (0.0-0.8) K/mm3 Eos # (Auto) 0.1 (0.0-0.4) K/mm3 Baso # (Auto) 0.0 (0.0-0.1) K/mm3 Seg Neutrophils % 68.7 (40.0-70.0) % Seg Neutrophils # 2.7 (1.8-7.7) K/mm3 PT 16.0 H (12.2-14.9) Sec. INR 1.16 H (0.87-1.13) Sodium 141 (137-145) mmol/L Potassium 6.3 H* (3.6-5.0) mmol/L Chloride 101.5 (98-107) mmol/L Carbon Dioxide 24 (22-30) mmol/L Anion Gap 22 mmol/L BUN 80 H (7-17) mg/dL Creatinine 11.9 H (0.6-1.2) mg/dL Estimated GFR 4 ml/min BUN/Creatinine Ratio 7 % Glucose 109 H (65-100) mg/dL Calcium 8.8 (8.4-10.2) mg/dL Phosphorus 8.70 H (2.5-4.5) mg/dL Total Bilirubin 0.30 (0.1-1.2) mg/dL AST 18 (5-40) units/L ALT 16 (7-56) units/L Alkaline Phosphatase 83 (35-129) units/L Troponin T (0.00-0.029) ng/mL NT-Pro-B Natriuret Pep (0-900) pg/mL Total Protein 6.5 (6.3-8.2) g/dL Albumin 3.5 L (3.9-5) g/dL Albumin/Globulin Ratio 1.2 % Triglycerides (2-149) mg/dL Cholesterol (50-199) mg/dL LDL Cholesterol Direct (50-130) mg/dL HDL Cholesterol (40-59) mg/dL Cholesterol/HDL Ratio % Hepatitis A IgM Ab (NonReactive) Hep B Core IgM Ab (NonReactive) Hepatitis C Antibody (NonReactive) 05/10/21 05/10/21 Range/Units 16:45 19:00 WBC (4.5-11.0) K/mm3 RBC (3.65-5.03) M/mm3 Hgb (10.1-14.3) gm/dl Hct (30.3-42.9) % MCV (79-97) fl MCH (28-32) pg MCHC (30-34) % RDW (13.2-15.2) % Plt Count (140-440) K/mm3 Lymph % (Auto) (13.4-35.0) % [place] % (Auto) (0.0-7.3) % Eos % (Auto) (0.0-4.3) % Baso % (Auto) (0.0-1.8) % Lymph # (Auto) (1.2-5.4) K/mm3 [place] # (Auto) (0.0-0.8) K/mm3 Eos # (Auto) (0.0-0.4) K/mm3 Baso # (Auto) (0.0-0.1) K/mm3 Seg Neutrophils % (40.0-70.0) % Seg Neutrophils # (1.8-7.7) K/mm3 PT (12.2-14.9) Sec. INR (0.87-1.13) Sodium (137-145) mmol/L Potassium (3.6-5.0) mmol/L Chloride (98-107) mmol/L Carbon Dioxide (22-30) mmol/L Anion Gap mmol/L BUN (7-17) mg/dL Creatinine (0.6-1.2) mg/dL Estimated GFR ml/min BUN/Creatinine Ratio % Glucose (65-100) mg/dL Calcium (8.4-10.2) mg/dL Phosphorus (2.5-4.5) mg/dL Total Bilirubin (0.1-1.2) mg/dL AST (5-40) units/L ALT (7-56) units/L Alkaline Phosphatase (35-129) units/L Troponin T 0.250 H* (0.00-0.029) ng/mL NT-Pro-B Natriuret Pep 99990 H (0-900) pg/mL Total Protein (6.3-8.2) g/dL Albumin (3.9-5) g/dL Albumin/Globulin Ratio % Triglycerides 121 (2-149) mg/dL Cholesterol 174 (50-199) mg/dL LDL Cholesterol Direct 105 (50-130) mg/dL HDL Cholesterol 45 (40-59) mg/dL Cholesterol/HDL Ratio 3.86 % Hepatitis A IgM Ab Non-reactive (NonReactive) Hep B Core IgM Ab Non-reactive (NonReactive) Hepatitis C Antibody Non-reactive (NonReactive) - Medical Decision Making I saw this patient in conjunction with ELMA Sosa. The patient missed 1 dialysis session and then was unable to get dialysis today because of that. Patient complains of some mild shortness of breath. Chest x-ray shows some mild hypervolemia with pulmonary vascular congestion and mild interstitial edema. Other than some mild hypertension, the patient's vital signs have been reassuring thus far including being afebrile and no hypoxia. Labs show hyperka lemia with a potassium of 6.3. She has elevated BUN, creatinine and decreased GFR consistent with her end-stage renal disease needing hemodialysis. Nephrology was contacted and consulted and the patient will get dialyzed tomorrow. The patient was given Kayexalate, calcium and albuterol for the hy perkalemia. She was accepted for admission by the hospitalist, Dr. Khan. Critical care attestation.: If time is entered above; I have spent that time in minutes in the direct care of this critically ill patient, excluding procedure time. ED Disposition Is pt being admited?: Yes
[2021-05-10] MEDS ORDERED: ONDANSETRON 4 MG ODT TAB PO ONE (16:31)
[2021-05-10 17:06] LABS: Eosinophils # (Auto) 0.1 K/mm3 (0.0-0.4); Eosinophils % (Auto) 2.5 % (0.0-4.3); Hematocrit 25.4 % (30.3-42.9); Hemoglobin 7.9 gm/dl (10.1-14.3); Lymphocytes # (Auto) 0.7 K/mm3 (1.2-5.4); Lymphocytes % (Auto) 17.8 % (13.4-35.0); Mean Corpuscular HGB Conc 31 % (30-34); Mean Corpuscular Volume 89 fl (79-97); Monocytes # (Auto) 0.4 K/mm3 (0.0-0.8); Platelet Count 318 K/mm3 (140-440); Red Blood Count 2.86 M/mm3 (3.65-5.03)
--- NOTE | 2021-05-10 17:08 | XRay Report ---
XR chest routine 2V INDICATION / CLINICAL INFORMATION: Sob. COMPARISON: 01/18/2021 FINDINGS: SUPPORT DEVICES: None. HEART /PULMONARY VASCULATURE: There is cardiomegaly. Cardiac loop recorder is present. TAVR. Pulmonar y vasculature is mildly prominent. LUNGS / PLEURA: No significant pulmonary or pleural abnormality. No pneumothorax. ADDITIONAL FINDINGS: No significant additional findings. IMPRESSION: Cardiomegaly with mild prominence of the pulmonary vasculature, may reflect mild CHF. Signer Name: Jorge Lux MD Signed: 05/10/2021 5:04 PM Workstation Name: [id number]
[2021-05-10 17:14] LABS: INR 1.16 (0.87-1.13)
[2021-05-10 17:20] LABS: Albumin 3.5 g/dL (3.9-5); Calcium 8.8 mg/dL (8.4-10.2)
[2021-05-10 17:49] LABS: Chol/HDL Ratio 3.86 %
[2021-05-10] MEDS ORDERED: ALBUTEROL 2.5 MG/3 ML NEBU IH ONE (17:59)
[2021-05-10] MEDS ORDERED: SODIUM POLYSTYRENE 15 GM/60 ML ORAL LIQD PO ONE (17:59)
[2021-05-10] MEDS ORDERED: ONDANSETRON 4 MG/2 ML INJ ONE (18:36)
[2021-05-10] MEDS ORDERED: EPOETIN ALFA-EPBX 10,000 UNIT/1 ML VIAL IV PRN (18:44)
[2021-05-10] MEDS ORDERED: SODIUM CHLORIDE 0.9% 100 ML IV PRN (18:44)
[2021-05-10] MEDS ORDERED: CALCIUM GLUCONATE 1,000 MG in SODIUM CHLORIDE 0.9% 100 ML IV ONE (18:59)
[2021-05-10 19:59] LABS: Hepatitis C Virus Antibody Non-Reactive (NonReactive)
[2021-05-10 20:39] LABS: Hepatitis B Surface Antigen Nonreactive (Negative)
--- NOTE | 2021-05-10 21:49 | History and Physical Report ---
History of Present Illness Date of examination: 05/10/21 Date of admission: 05/10/21 18:26 Chief complaint: Missed hemodialysis x2 slight shortness of breath for 1 day History of present illness: 70-year-old female who has a history of end-stage renal disease currently on hemodialysis Monday and Monday, history of hypertension, and recent aortic valve replacement and congestive heart failure presents to the ER today for blood work for dialysis. Patient states that she was recently discharged from the hospital last week Monday after being admitted for aortic valve replacement. Patient states that she went to dialysis on the following Monday, but missed dialysis on Monday because she got sick. She states that when she tried to go to dialysis today, they told her that she would need blood work before she can get dialysis. She states that she went to a [facility] urgent care, they did do the labs, but unfortunately the results are not final be back until tomorrow. She goes to [facility] for dialysis. She states that they spoke to her urologist, Dr. Jack, and he recommended that she come to the ER for labs. Patient states that other than the generalized fatigue and weakness which she has had since her surgery she otherwise feels okay. She has no chest pain, abdominal pain, she is no longer having any diarrhea or vomiting or any additional symptoms. Of note: I was able to talk to the nurse at the [facility], and she reported to me that when the patient misses dialysis, the supposed to have labs prior to being able to get dialysis again. Typically they need to get the results of calcium, phosphorus and potassium. She referred patient to the [facility] urgent care to get the labs done hoping that they would get the results early enough to where she could get her dialysis today but since it is already 4:00 patient rolo lee will not be able to get dialyzed today. Complaint: Sent for labs from Dialysis clinic -: This morning Severity scale (0 -10): 0 - Past Medical History --Hypertension: Yes --Heart Attack/AMI: Yes --Congestive Heart Failure: Yes --GERD: Yes --Renal Disease: Yes (Stage V seeing a Pork Cutlet Maker) --Additional medical history: Seeing kidney doctor monthly for kidney disease, Heart Murmur, Has a Av graft/fistula placed in right arm but not accessed yet - Surgical History Additional Surgical History: Hysterectomy, Right AV graft/fistula not accessed yet - Social History Smoking Status: Never Smoker - Medications Home Medications: Home Medications Medication Instructions Recorded Confirmed Last Taken Type raNITIdine HCL [Heartburn Relief] 75 mg PO DAILY 01/01/19 12/17/20 1 Week Ago History ~08/23/19 Aranesp 1 ampul INHALATION Q4W PRN 08/30/19 12/17/20 08/12/19 History Cinacalcet HCl 30 mg PO DAILY 08/30/19 12/17/20 08/28/19 History oxyCODONE /ACETAMINOPHEN [Percocet 1 tab PO Q6HR PRN #24 tablet 08/30/19 12/17/20 Unknown Rx 5/325 mg] ALPRAZolam [Xanax TAB] 0.25 mg PO Q8H PRN #15 tablet 12/22/20 Unknown Rx Aspirin [Aspirin BABY CHEW TAB] 81 mg PO QDAY #30 tab.chew 12/22/20 Unknown Rx AtorvaSTATin [Lipitor] 40 mg PO QHS #30 tablet 12/22/20 Unknown Rx Docusate Sodium [Colace CAP] 100 mg PO BID PRN #20 capsule 12/22/20 Unknown Rx Famotidine [Pepcid] 10 mg PO BID #60 tablet 12/22/20 Unknown Rx carvediloL [Coreg] 6.25 mg PO BID #60 tablet 12/22/20 Unknown Rx Review of Systems Comment: All other systems reviewed and negative Constitutional: malaise, weakness. denies: chills, fever ENT: denies: ear pain, throat pain Respiratory: denies: cough, shortness of breath, wheezing Cardiovascular: denies: chest pain, palpitations, dyspnea on exertion, edema, syncope, paroxysmal nocturnal dyspnea Gastrointestinal: denies: abdominal pain, nausea, vomiting, diarrhea, constipation, hematemesis, hematochezia Genitourinary: denies: urgency, dysuria, frequency, hematuria, discharge, abn ormal menses Musculoskeletal: denies: back pain, joint swelling, arthralgia Skin: denies: rash, lesions, change in color, change in hair/nails Medications and Allergies Allergies Allergy/AdvReac Type Severity Reaction Status Date / Time ampicillin Allergy Vomiting Verified 03/27/19 13:04 lisinopril Allergy Swelling Verified 03/27/19 13:04 Home Medications Medication Instructions Recorded Confirmed Last Taken Type Aranesp 1 ampul INHALATION Q4W PRN 08/30/19 05/11/21 08/12/19 History Cinacalcet HCl 30 mg PO DAILY 08/30/19 05/11/21 05/09/21 19:00 History oxyCODONE /ACETAMINOPHEN [Percocet 1 tab PO Q6HR PRN #24 tablet 08/30/19 05/11/21 Unknown Rx 5/325 mg] ALPRAZolam [Xanax TAB] 0.25 mg PO Q8H PRN #15 tablet 12/22/20 05/11/21 Unknown Rx Aspirin [Aspirin BABY CHEW TAB] 81 mg PO QDAY #30 tab.chew 12/22/20 05/11/21 05/10/21 10:00 Rx AtorvaSTATin [Lipitor] 40 mg PO QHS #30 tablet 12/22/20 05/11/21 05/09/21 19:00 Rx Docusate Sodium [Colace CAP] 100 mg PO BID PRN #20 capsule 12/22/20 05/11/21 Unknown Rx Famotidine [Pepcid] 10 mg PO BID #60 tablet 12/22/20 05/11/21 05/10/21 10:00 Rx carvediloL [Coreg] 6.25 mg PO BID #60 tablet 12/22/20 05/11/21 04/25/21 22:00 Rx Active Meds: Active Medications Sodium Chloride (Nacl 0.9%) 100 mls @ 999 mls/hr IV BINDU PRN PRN Reason: Hypotension Exam - Constitutional Vitals: Temp Pulse Resp BP Pulse Ox 98.6 F 68 16 170/66 99 05/10/21 15:20 05/10/21 15:20 05/10/21 15:20 05/10/21 15:20 05/10/21 15:20 General appearance: Present: no acute distress, well-nourished - EENT Eyes: Present: PERRL ENT: hearing intact, clear oral mucosa - Neck Neck: Present: supple, normal ROM - Respiratory Respiratory effort: normal Respiratory: bilateral: CTA - Cardiovascular Heart rate: 78 Rhythm: regular Heart Sounds: Present: S1 & S2. Absent: rub, click - Extremities Extremities: pulses symmetrical, No edema Peripheral Pulses: within normal limits - Abdominal General gastrointestinal: Present: soft, non-tender, non-distended, normal bowel sounds Female genitourinary: Present: normal - Integumentary Integumentary: Present: clear, warm, dry - Musculoskeletal Musculoskeletal: gait normal, strength equal bilaterally - Psychiatric Psychiatric: appropriate mood/affect, intact judgment & insight - Neurologic Neurologic: CNII-XII intact, moves all extremities HEART Score - HEART Score Troponin: Troponin T 0.250 ng/mL (0.00-0.029) H* 05/10/21 16:45 Results - Labs CBC & Chem 7: 05/11/21 04:18 05/11/21 04:18 Labs: Laboratory Last Values WBC 4.0 K/mm3 (4.5-11.0) L 05/10/21 16:32 RBC 2.86 M/mm3 (3.65-5.03) L 05/10/21 16:32 Hgb 7.9 gm/dl (10.1-14.3) L 05/10/21 16:32 Hct 25.4 % (30.3-42.9) L 05/10/21 16:32 MCV 89 fl (79-97) 05/10/21 16:32 MCH 28 pg (28-32) 05/10/21 16:32 MCHC 31 % (30-34) 05/10/21 16:32 RDW 19.0 % (13.2-15.2) H 05/10/21 16:32 Plt Count 318 K/mm3 (140-440) 05/10/21 16:32 Lymph % (Auto) 17.8 % (13.4-35.0) 05/10/21 16:32 Carson % (Auto) 10.0 % (0.0-7.3) H 05/10/21 16:32 Eos % (Auto) 2.5 % (0.0-4.3) 05/10/21 16:32 Baso % (Auto) 1.0 % (0.0-1.8) 05/10/21 16:32 Lymph # (Auto) 0.7 K/mm3 (1.2-5.4) L 05/10/21 16:32 Carson # (Auto) 0.4 K/mm3 (0.0-0.8) 05/10/21 16:32 Eos # (Auto) 0.1 K/mm3 (0.0-0.4) 05/10/21 16:32 Baso # (Auto) 0.0 K/mm3 (0.0-0.1) 05/10/21 16:32 Seg Neutrophils % 68.7 % (40.0-70.0) 05/10/21 16:32 Seg Neutrophils # 2.7 K/mm3 (1.8-7.7) 05/10/21 16:32 PT 16.0 Sec. (12.2-14.9) H 05/10/21 16:32 INR 1.16 (0.87-1.13) H 05/10/21 16:32 Sodium 141 mmol/L (137-145) 05/10/21 16:32 Potassium 6.3 mmol/L (3.6-5.0) H* 05/10/21 16:32 Chloride 101.5 mmol/L (98-107) 05/10/21 16:32 Carbon Dioxide 24 mmol/L (22-30) 05/10/21 16:32 Anion Gap 22 mmol/L 05/10/21 16:32 BUN 80 mg/dL (7-17) H 05/10/21 16:32 Creatinine 11.9 mg/dL (0.6-1.2) H 05/10/21 16:32 Estimated GFR 4 ml/min 05/10/21 16:32 BUN/Creatinine Ratio 7 % 05/10/21 16:32 Glucose 109 mg/dL (65-100) H 05/10/21 16:32 Calcium 8.8 mg/dL (8.4-10.2) 05/10/21 16:32 Phosphorus 8.70 mg/dL (2.5-4.5) H 05/10/21 16:32 Total Bilirubin 0.30 mg/dL (0.1-1.2) 05/10/21 16:32 AST 18 units/L (5-40) 05/10/21 16:32 ALT 16 units/L (7-56) 05/10/21 16:32 Alkaline Phosphatase 83 units/L (35-129) 05/10/21 16:32 Troponin T 0.250 ng/mL (0.00-0.029) H* 05/10/21 16:45 NT-Pro-B Natriuret Pep 43617 pg/mL (0-900) H 05/10/21 16:45 Total Protein 6.5 g/dL (6.3-8.2) 05/10/21 16:32 Albumin 3.5 g/dL (3.9-5) L 05/10/21 16:32 Albumin/Globulin Ratio 1.2 % 05/10/21 16:32 Triglycerides 121 mg/dL (2-149) 05/10/21 16:45 Cholesterol 174 mg/dL (50-199) 05/10/21 16:45 LDL Cholesterol Direct 105 mg/dL (50-130) 05/10/21 16:45 HDL Cholesterol 45 mg/dL (40-59) 05/10/21 16:45 Cholesterol/HDL Ratio 3.86 % 05/10/21 16:45 Hepatitis A IgM Ab Non-reactive (NonReactive) 05/10/21 19:00 Hep Bs Antigen Nonreactive (Negative) 05/10/21 19:00 Hep B Core IgM Ab Non-reactive (NonReactive) 05/10/21 19:00 Hepatitis C Antibody Non-reactive (NonReactive) 05/10/21 19:00 - Imaging and Cardiology Chest x-ray: report reviewed Imaging and Cardiology: Chest x-ray Cardiomegaly with mild prominence of the pulmonary vasculature may reflect mild CHF Assessment and Plan Advance Directives: Yes (Full code) VTE prophylaxis?: Chemical Plan of care discussed with patient/family: Yes - Patient Problems (1) Fluid overload Current Visit: Yes Status: Acute Plan to address problem: Fluid overload secondary to missed hemodialysis Patient for emergent hemodialysis Possible discharge tomorrow Nephrology consulted (2) CHF (congestive heart failure) Current Visit: Yes Status: Acute Qualifiers: Heart failure chronicity: chronic Plan to address problem: Secondary to fluid overload Needs hemodialysis for increased ultrafiltration (3) Hypertension Current Visit: Yes Status: Chronic Qualifiers: Hypertension type: primary hypertension Qualified Code(s): I10 - Essential (primary) hypertension Plan to address problem: Continue antihypertensives (4) Hyperkalemia Current Visit: Yes Status: Acute Plan to address problem: Treated in the emergency room with Kayexalate and calcium gluconate (5) ESRD (end stage renal disease) on dialysis Current Visit: Yes Status: Chronic Plan to address problem: ESRD needing hemodialysis continue hemodialysis as per schedule (6) SCAR (generalized anxiety disorder) Current Visit: Yes Status: Chronic Plan to address problem: On alprazolam (7) DVT prophylaxis Current Visit: Yes Status: Acute Plan to address problem: On heparin and GI prophylaxis
[2021-05-10] MEDS ORDERED: oxyCODONE /ACETAMINOPHEN 5-325MG TAB PO PRN (21:51)
[2021-05-10] MEDS ORDERED: DOCUSATE SODIUM 100 MG CAP PO PRN (21:51)
[2021-05-10] MEDS ORDERED: ALPRAZolam 0.25 MG TAB PO PRN (21:51)
[2021-05-10] MEDS ORDERED: METOCLOPRAMIDE 10 MG/2 ML INJ IV PRN (21:57)
[2021-05-10] MEDS ORDERED: ONDANSETRON 4 MG/2 ML INJ IV PRN (21:57)
[2021-05-10] MEDS ORDERED: HYDROmorphone 1 MG/1 ML INJ IV PRN (21:57)
[2021-05-10] MEDS ORDERED: ACETAMINOPHEN 325 MG TAB PO PRN (21:57)
[2021-05-10] MEDS ORDERED: RANITIDINE HCL 75 MG PO SCH (22:00)
[2021-05-10] MEDS ORDERED: carvediloL 6.25 MG TAB PO SCH (22:00)
[2021-05-10] MEDS ORDERED: CALCIUM GLUCONATE 2,000 MG in SODIUM CHLORIDE 0.9% 100 ML IV ONE (22:34)
[2021-05-10] MEDS ORDERED: SODIUM BICARB 8.4% 50 MEQ/50 ML SYRINGE IV ONE (22:35)
[2021-05-11] MEDS: FAMOTIDINE 10 MG TAB PO SCH ×2 (00:13→09:54)
[2021-05-11] MEDS: HEPARIN 5,000 UNIT/1 ML VIAL SUB-Q SCH ×2 (00:16→09:55)
[2021-05-11 05:31] LABS: Basophils % (Auto) 0.7 % (0.0-1.8); Eosinophils # (Auto) 0.1 K/mm3 (0.0-0.4); Eosinophils % (Auto) 2.3 % (0.0-4.3); Hematocrit 26.7 % (30.3-42.9); Lymphocytes # (Auto) 0.5 K/mm3 (1.2-5.4); Mean Corpuscular HGB Conc 30 % (30-34); Mean Corpuscular Volume 91 fl (79-97); Monocytes # (Auto) 0.3 K/mm3 (0.0-0.8); Monocytes % (Auto) 7.6 % (0.0-7.3); Platelet Count 317 K/mm3 (140-440); Red Blood Count 2.95 M/mm3 (3.65-5.03); Red Cell Distribution Width 19.4 % (13.2-15.2)
[2021-05-11 05:45] LABS: Albumin 3.7 g/dL (3.9-5); Calcium 8.9 mg/dL (8.4-10.2)
--- NOTE | 2021-05-11 08:58 | Consultation ---
History of Present Illness - Reason for Consult Consult date: 05/11/21 end stage renal disease, hyperkalemia Requesting physician: ANGELLA ALMENDAREZ - History of Present Illness 70-year-old female who has a history of end-stage renal disease currently on hemodialysis Monday and Monday, history of hypertension, and recent aortic valve replacement and congestive heart failure presents to the ER today for blood work for dialysis. Patient states that she was recently discharged from the hospital last week Monday after being admitted for aortic valve replacement. Patient states that she went to dialysis on the following Monday, but missed dialysis on Monday because she got sick. She states that when she tried to go to dialysis today, they told her that she would need blood work before she can get dialysis. She states that she went to a [place] urgent care, they did do the labs, but unfortunately the results are not final be back until tomorrow - Past Medical History --Hypertension: Yes --Heart Attack/AMI: Yes --Congestive Heart Failure: Yes --GERD: Yes --Renal Disease: Yes (Stage V seeing a Information Officer) --Additional medical history: Seeing kidney doctor monthly for kidney disease, Heart Murmur, Has a Av graft/fistula placed in right arm but not accessed yet - Surgical History Additional Surgical History: Hysterectomy, Right AV graft/fistula not accessed yet - Social History Smoking Status: Never Smoker - Medications Home Medications: Home Medications Medication Instructions Recorded Confirmed Last Taken Type raNITIdine HCL [Heartburn Relief] 75 mg PO DAILY 01/01/19 12/17/20 1 Week Ago History ~08/23/19 Aranesp 1 ampul INHALATION Q4W PRN 08/30/19 12/17/20 08/12/19 History Cinacalcet HCl 30 mg PO DAILY 08/30/19 12/17/20 08/28/19 History oxyCODONE /ACETAMINOPHEN [Percocet 1 tab PO Q6HR PRN #24 tablet 08/30/19 12/17/20 Unknown Rx 5/325 mg] ALPRAZolam [Xanax TAB] 0.25 mg PO Q8H PRN #15 tablet 12/22/20 Unknown Rx Aspirin [Aspirin BABY CHEW TAB] 81 mg PO QDAY #30 tab.chew 12/22/20 Unknown Rx AtorvaSTATin [Lipitor] 40 mg PO QHS #30 tablet 12/22/20 Unknown Rx Docusate Sodium [Colace CAP] 100 mg PO BID PRN #20 capsule 12/22/20 Unknown Rx Famotidine [Pepcid] 10 mg PO BID #60 tablet 12/22/20 Unknown Rx carvediloL [Coreg] 6.25 mg PO BID #60 tablet 12/22/20 Unknown Rx Review of Systems Comment: All other systems reviewed and negative Constitutional: malaise, weakness. denies: chills, fever ENT: denies: ear pain, throat pain Respiratory: denies: cough, shortness of breath, wheezing Cardiovascular: denies: chest pain, palpitations, dyspnea on exertion, edema, syncope, paroxysmal nocturnal dyspnea Gastrointestinal: denies: abdominal pain, nausea, vomiting, diarrhea, constipation, hematemesis, hematochezia Genitourinary: denies: urgency, dysuria, frequency, hematuria, discharge, abnormal menses Musculoskeletal: denies: back pain, joint swelling, arthralgia Skin: denies: rash, lesions, change in color, change in hair/nails Medications and Allergies Allergies Allergy/AdvReac Type Severity Reaction Status Date / Time ampicillin Allergy Vomiting Verified 03/27/19 13:04 lisinopril Allergy Swelling Verified 03/27/19 13:04 Home Medications Medication Instructions Recorded Confirmed Last Taken Type Aranesp 1 ampul INHALATION Q4W PRN 08/30/19 05/11/21 08/12/19 History Cinacalcet HCl 30 mg PO DAILY 08/30/19 05/11/21 05/09/21 19:00 History oxyCODONE /ACETAMINOPHEN [Percocet 1 tab PO Q6HR PRN #24 tablet 08/30/19 05/11/21 Unknown Rx 5/325 mg] ALPRAZolam [Xanax TAB] 0.25 mg PO Q8H PRN #15 tablet 12/22/20 05/11/21 Unknown Rx Aspirin [Aspirin BABY CHEW TAB] 81 mg PO QDAY #30 tab.chew 12/22/20 05/11/21 05/10/21 10:00 Rx AtorvaSTATin [Lipitor] 40 mg PO QHS #30 tablet 12/22/20 05/11/21 05/09/21 19:00 Rx Docusate Sodium [Colace CAP] 100 mg PO BID PRN #20 capsule 12/22/20 05/11/21 Unknown Rx Famotidine [Pepcid] 10 mg PO BID #60 tablet 12/22/20 05/11/21 05/10/21 10:00 Rx carvediloL [Coreg] 6.25 mg PO BID #60 tablet 12/22/20 05/11/21 04/25/21 22:00 Rx Active Meds: Active Medications Sodium Chloride (Nacl 0.9%) 100 mls @ 999 mls/hr IV BINDU PRN PRN Reason: Hypotension Medications and Allergies Allergies Allergy/AdvReac Type Severity Reaction Status Date / Time ampicillin Allergy Vomiting Verified 03/27/19 13:04 lisinopril Allergy Swelling Verified 03/27/19 13:04 Home Medications Medication Instructions Recorded Confirmed Last Taken Type Aranesp 1 ampul INHALATION Q4W PRN 08/30/19 05/11/21 08/12/19 History Cinacalcet HCl 30 mg PO DAILY 08/30/19 05/11/21 05/09/21 19:00 History oxyCODONE /ACETAMINOPHEN [Percocet 1 tab PO Q6HR PRN #24 tablet 08/30/19 05/11/21 Unknown Rx 5/325 mg] ALPRAZolam [Xanax TAB] 0.25 mg PO Q8H PRN #15 tablet 12/22/20 05/11/21 Unknown Rx Aspirin [Aspirin BABY CHEW TAB] 81 mg PO QDAY #30 tab.chew 12/22/20 05/11/21 05/10/21 10:00 Rx AtorvaSTATin [Lipitor] 40 mg PO QHS #30 tablet 12/22/20 05/11/21 05/09/21 19:00 Rx Docusate Sodium [Colace CAP] 100 mg PO BID PRN #20 capsule 12/22/20 05/11/21 Unknown Rx Famotidine [Pepcid] 10 mg PO BID #60 tablet 12/22/20 05/11/21 05/10/21 10:00 Rx carvediloL [Coreg] 6.25 mg PO BID #60 tablet 12/22/20 05/11/21 04/25/21 22:00 Rx Active Meds: Active Medications Acetaminophen (Acetaminophen 325 Mg Tab) 650 mg PO Q4H PRN PRN Reason: Pain MILD(1-3)/Fever >100.5/[place]ILMORE Alprazolam (Alprazolam 0.25 Mg Tab) 0.25 mg PO Q8H PRN PRN Reason: Anxiety Aspirin (Aspirin 81 Mg Tab Chew) 81 mg PO QDAY [facility] Atorvastatin Calcium (Atorvastatin 40 Mg Tab) 40 mg PO QHS [facility] Last Admin: 05/11/21 00:14 Dose: 40 mg Documented by: Carvedilol (Carvedilol 6.25 Mg Tab) 6.25 mg PO BID@0800,1700 [facility] Last Admin: 05/11/21 00:19 Dose: 6.25 mg Documented by: Cinacalcet (Cinacalcet 30 Mg Tab) 30 mg PO DAILY [facility] Docusate Sodium (Docusate Sodium 100 Mg Cap) 100 mg PO BID PRN PRN Reason: Constipation Famotidine (Famotidine 10 Mg Tab) 10 mg PO BID [facility] Last Admin: 05/11/21 00:13 Dose: 10 mg Documented by: Heparin Sodium (Porcine) (Heparin 5,000 Unit/1 Ml Vial) 5,000 unit SUB-Q Q12HR [facility] Last Admin: 05/11/21 00:16 Dose: 5,000 unit Documented by: Sodium Chloride (Nacl 0.9%) 100 mls @ 999 mls/hr IV BINDU PRN PRN Reason: Hypotension Metoclopramide HCl (Metoclopramide 10 Mg/2 Ml Inj) 5 mg IV Q6H PRN PRN Reason: Nausea And Vomiting Ondansetron HCl (Ondansetron 4 Mg/2 Ml Inj) 4 mg IV Q3H PRN PRN Reason: Nausea And Vomiting Sodium Chloride (Sodium Chloride 0.9% 10 Ml Flush Syringe) 10 ml IV BID [facility] Last Admin: 05/11/21 00:14 Dose: 10 ml Documented by: Sodium Chloride (Sodium Chloride 0.9% 10 Ml Flush Syringe) 10 ml IV PRN PRN PRN Reason: LINE FLUSH Exam - Vital Signs Vital signs: Vital Signs Temp Pulse Resp BP Pulse Ox 98.6 F 68 16 170/66 99 05/10/21 15:20 05/10/21 15:20 05/10/21 15:20 05/10/21 15:20 05/10/21 15:20 - Physical Exam Narrative exam: General appearance: Present: no acute distress, well-nourished - EENT Eyes: Present: PERRL ENT: hearing intact, clear oral mucosa - Neck Neck: Present: supple, normal ROM - Respiratory Respiratory effort: normal Respiratory: bilateral: CTA - Cardiovascular Heart rate: 78 Rhythm: regular Heart Sounds: Present: S1 & S2. Absent: rub, click - Extremities Extremities: pulses symmetrical, No edema Peripheral Pulses: within normal limits - Abdominal General gastrointestinal: Present: soft, non-tender, non-distended, normal bowel sounds Female genitourinary: Present: normal - Integumentary Integumentary: Present: clear, warm, dry - Musculoskeletal Musculoskeletal: gait normal, strength equal bilaterally - Psychiatric Psychiatric: appropriate mood/affect, intact judgment & insight - Neurologic Neurologic: CNII-XII intact, moves all extremities Results - Lab Results 05/11/21 04:18 05/11/21 04:18 Most recent lab results Calcium 8.9 mg/dL (8.4-10.2) 05/11/21 04:18 Phosphorus 8.70 mg/dL (2.5-4.5) H 05/10/21 16:32 Assessment and Plan mpression: * End stage renal disease, new * Uremia * hyperkalemia * Severe aortic stenosis * Pulmonary edema * Elevated troponin * Metabolic acidosis * Anemia secondary to ESRD * Hypertension Plan: * HD today and q MWF * UF as tolerated * stress compliance with hd therapy * Epogen TIW prn * Renal/HD diet * ok to dc after hd
[2021-05-11] MEDS ORDERED: EMLA CREAM 5 GM TP STA (09:57)
[2021-05-11] MEDS ORDERED: CINACALCET 30 MG TAB PO SCH (10:00)
[2021-05-11] MEDS ORDERED: ASPIRIN 81 MG TAB CHEW PO SCH (10:00)
--- NOTE | 2021-05-11 15:20 | Discharge Summary ---
Providers - Providers Date of Admission: 05/10/21 18:26 Attending physician: ANNE MARIE OLVERA MD 05/10/21 17:58 Consult to Physician [CONS] Routine Comment: Consulting Provider: ISRAEL GORDON Physician Instructions: Reason For Exam: ESRD needing dialysis, hyperkalemia Primary care physician: [facility] Hospitalization Condition: Stable Hospital course: 70-year-old female with PMH of obesity, ESRD on hemodialysis on M/W/F recently underwent TAVR at [facility] and was discharged home on last Monday. She felt weak and Monday and did not go for dialysis. According to patient, she was unable to go for dialysis again on Monday as she was required to have some blood work done to be able to return to dialysis center. She was advised by her nephrology service to go to ED to get dialysis. In ER, work-up was significant for mild volume overload on chest x-ray and hyperkalemia of 6.3 and that she received emergent medical therapy in ED. hemoglobin 8 which appears to be chronic. Troponin 0 0.025 again patient has chronically elevated troponins in the setting of renal failure. This morning patient underwent hemodialysis. Patient cu rrently is asymptomatic. She denies chest pains, palpitations, dyspnea, fever or chills. She is lying flat in bed without respiratory distress. She does not appear to be overtly volume overloaded. Nephrology recommended discharging patient home and she will continue her regular dialysis schedule starting from tomorrow. She does not have any postoperative issues after valve procedure. Patient will have follow-up with [facility] cardiology as per appointment. Discharge diagnoses Dyspnea and volume overload with missing hemodialysis x2 Hyperkalemia after missing hemodialysis x2 ESRD on dialysis M/W/F Chronic anemia of kidney disease Chronic troponin elevation Obesity Recent TAVR at [facility], appears to be properly functioning Disposition: 01 HOME / SELF CARE / HOMELESS Final Discharge Diagnosis (Prints w/discharge instructions): Dyspnea and volume overload with missing hemodialysis x2. Hyperkalemia after missing hemodialysis x2. ESRD on dialysis M/W/F. Chronic anemia of kidney disease. Chronic troponin elevation. Obesity. Recent TAVR at [facility], appears to be properly functioning Core Measure Documentation - Palliative Care Palliative Care/ Comfort Measures: Not Applicable - Core Measures Any of the following diagnoses?: none Exam - Constitutional Vitals: Temp Pulse Resp BP Pulse Ox 97.7 F 69 18 157/74 98 05/11/21 11:45 05/11/21 11:45 05/11/21 10:44 05/11/21 11:45 05/11/21 10:43 General appearance: Present: no acute distress, obese - EENT Eyes: Present: PERRL ENT: clear oral mucosa - Neck Neck: Present: supple - Respiratory Respiratory effort: normal Respiratory: bilateral: CTA - Cardiovascular Rhythm: regular Heart Sounds: Present: systolic murmur - Extremities Extremity abnormal: edema (Trace pretibial edema) - Abdominal General gastrointestinal: Present: soft, non-tender, normal bowel sounds - Integumentary Integumentary: Absent: rash - Psychiatric Psychiatric: appropriate mood/affect - Neurologic Neurologic: moves all extremities Plan Activity: advance as tolerated Diet: low fat, low salt, renal Special Instructions: restrict fluid intake to (1500ml) Additional Instructions: Continue hemodialysis without missing. Follow with [facility] cardiology as scheduled. Improvement renal diet and restrict fluid intake to 1500 mils per day Follow up with: PRIMARY CARE, [Primary Care Provider] - 3-5 Days
[2021-05-11 16:20] VITALS: BP 175/75
--- NOTE | 2021-05-12 08:40 | Electrocardiograph Report ---
[facility] Test Date: 2021-05-10 Test Time: 17:33:41 Pat Name: ELOY PAN Department: Room: A390 Gender: F Hand Rigger: VERONICA : 1950 Requested By: CHRISTOFER MCCLELLAND Order Number: [id number] Reading MD: Medardo Mcgraw Measurements Intervals [place] Rate: 62 P: 15 NE: 270 QRS: -35 QRSD: 115 T: 89 QT: 476 QTc: 482 Interpretive Statements Sinus rhythm Prolonged NE interval Left ventricular hypertrophy Inferior infarct, old Anterior infarct, old Nonspecific T abnormalities, lateral leads Compared to ECG 01/18/2021 14:39:45 First degree AV block now present Left ventricular hypertrophy now present T-wave abnormality now present Myocardial infarct finding still present Electronically Signed On 05-12-2021 8:39:27 EST by Medardo Mcgraw
== END 2021-05-11 17:00 | disposition home or self-care (01) ==
LOC: ED 14:44 → 3A 18:26
PROVIDERS: ADMIT Internal Medicine; ATTEND Internal Medicine
DX: E87.70 Fluid overload, unspecified (principal); I13.2 Hypertensive heart and chronic kidney disease with heart failure and with stage 5 chronic kidney disease, or end stage renal disease; I50.9 Heart failure, unspecified; N18.6 End stage renal disease; E87.5 Hyperkalemia; E66.9 Obesity, unspecified; K21.9 Gastro-esophageal reflux disease without esophagitis; I35.0 Nonrheumatic aortic (valve) stenosis; J81.1 Chronic pulmonary edema; D63.1 Anemia in chronic kidney disease; F41.1 Generalized anxiety disorder; R77.8 Other specified abnormalities of plasma proteins; Z99.2 Dependence on renal dialysis; Z90.710 Acquired absence of both cervix and uterus; Z79.899 Other long term (current) drug therapy; Z98.890 Other specified postprocedural states; Z79.82 Long term (current) use of aspirin; Z68.39 Body mass index [BMI] 39.0-39.9, adult
CPT/HCPCS: 36415; 71046; 80053; 80061; 80074; 83880; 84100; 84484; 85025; 85610; 93005; 96372; 96374; 96375; 96376; 99285; G0378; J0610; J1644; J3490; J2405; Q0162

== ENCOUNTER 2021-10-20 16:45 | Emergency (ER) | payer OTHER, MEDICARE ==
[2021-10-20 16:51] VITALS: BP 154/80
== END 2021-10-20 17:43 | disposition left against medical advice (07) ==
LOC: ED 16:45
DX: R53.81 Other malaise (principal); Z53.21 Procedure and treatment not carried out due to patient leaving prior to being seen by health care provider